=== PATIENT | female | born 1985 | race Caucasian/White ===

== ENCOUNTER 2020-08-11 17:57 | Emergency (ER) | payer OTHER, SELFPAY ==
--- OUTSIDE RECORDS SUMMARY | 2020-08-11 17:59 | XMS REPORT | Summary of Care ---
:1985 Author Organization [facility] Address [address] [place] [address] Care Team Providers Name Role Phone Marcela Kang MD Unavailable Unavailable Escobar, E Insurance Hmo Escobar, E Primary Care Provider Reason for Visit Reason Comments Refill Request Encounter Details Date Type Department Care Team Description 05/23/2020 Refill [facility] Endocrinology- Tanya [place] [address] [address] [place] [address] [phone] Allergies Active Allergy Reactions Severity Noted Date Comments Penicillins Unknown - See comments 07/21/2011 documented as of this encounter (statuses as of 05/23/2020) Medications Medication Sig Dispensed Refills Start End Date Status Date insulin Use 4 times daily 360 Syringe 3 Active syringe-needle with insulin 6 U-100 1 ml (INSULIN SYRINGE) 1 mL 29 gauge x 1/2" SyrgIndications: Type 1 diabetes mellitus with complications insulin Use 4 times daily 360 Syringe 3 Active syringe-needle 6 U-100 (BD INSULIN SYRINGE ULTRA-FINE) 0.3 mL 31 gauge x 15/64" SyrgIndications: Type 1 diabetes mellitus with complications BD INSULIN SYRINGE 0 A ctive HALF UNIT 0.3 mL 6 31 gauge x 15/64" Syrg insulin aspart Take according to 10 mL 2 Active U-100 (NOVOLOG sliding scale and 8 FLEXPEN U-100 carbohydrate INSULIN) 100 ratio up to 20 unit/mL units before each injectionIndicatio meal ns: Type 1 diabetes mellitus with complication phenytoin ER 300 Take 1 capsule by 30 capsule 6 Active mg ER capsule mouth at bedtime. 8 Blood-Glucose DX: E11.9 1 Each 0 Active Meter (FREESTYLE 8 LITE METER) Kit lancets (FREESTYLE Use as directed, 550 Each 1 Active LANCETS) 28 gauge six times daily, 8 Misc DX:E11.9 phenytoin Extended Take 100 mg by 0 Active 100 mg capsule mouth 2 (two) times daily. pregabalin Take 100 mg by 0 Acti ve (LYRICA) 100 mg mouth daily. capsule sertraline HCl Take by mouth 0 Active (SERTRALINE ORAL) daily. ALPRAZolam 1 mg Take 1 mg by 0 A ctive tablet mouth 3 (three) times daily. glucagon (GLUCAGON Inject 1 mg 1 mg 2 Active EMERGENCY KIT, intravenously as 9 HUMAN,) 1 mg needed injectionIndicatio (hypoglycemia). ns: Type 1 diabetes mellitus with hypoglycemia and without coma, Hypoglycemia due to insulin traMADol 50 mg Take 50 mg by 0 A ctive tablet mouth every 6 (six) hours as needed. flash glucose 1 Kit every 14 2 Kit 3 A ctive sensor (FREESTYLE (fourteen) days. 9 MAN 14 DAY SENSOR) KitIndications: Type 1 diabetes mellitus with hypoglycemia and without coma flash glucose 1 Each daily. 1 Each 0 Ac tive scanning reader 9 (FREESTYLE MAN 14 DAY READER) MiscIndications: Type 1 diabetes mellitus with hypoglycemia and without coma Insulin Ingalls, Use as directed 5 500 Each 1 Active Disposable, (BD times a day 0 ULTRAFINE III MINI E10.65 PEN) 31 gauge x 3/16" NdleIndications: Type 1 diabetes mellitus with hypoglycemia and without coma FREESTYLE LITE USE DIRECTED 600 Strip 1 Active STRIPS SIX TIMES DAILY 0 stripIndications: E10.9 Type 1 diabetes mellitus with hypoglycemia and without coma ATORVASTATIN 10 mg TAKE 1 TABLET BY 90 tablet 1 04/15/202 Active tabletIndications: MOUTH EVERYDAY AT 0 Other BEDTIME hyperlipidemia proMETHazine 25 mg Take 1 tablet by 12 tablet 0 Active tabletIndications: mouth every 8 0 Pyelonephritis of (eight) hours as left kidney needed for Nausea and Vomiting (N/V). LANTUS SOLOSTAR INJECT 12 UNITS 15 mL 0 Active U-100 INSULIN 100 IN MORNING AND 5 0 unit/mL (3 mL) UNITS AT NIGHT injectionIndicatio E10.65 ns: Type 1 diabetes mellitus with hypoglycemia and without coma Insulin Glargine INJECT 12 UNITS 18 mL 1 0 Discontinued (LANTUS SOLOSTAR IN MORNING AND 5 0 20 U-100 INSULIN) 100 UNITS AT NIGHT unit/mL (3 mL) E10.65 injectionIndicatio ns: Type 1 diabetes mellitus with hypoglycemia and without coma documented as of this encounter (statuses as of 05/23/2020) Active Problems Problem Noted Date Diabetic ketoacidosis without coma associated with typ e 1 diabetes 02/26/2019 mellitus Nausea and vomiting 02/26/2019 Metabolic disorder 05/18/2018 Alcoholic ketoacidosis 03/29/2018 DKA (diabetic ketoacidoses) 03/25/2018 Vomiting 01/30/2018 Dehydration 01/30/2018 Pain in joint, shoulder region 10/24/2016 Convulsions 10/23/2016 Seizures 10/22/2016 Diabetic ketoacidosis 06/02/2016 Surveillance of previously prescribed contraceptive me thod 01/14/2016 Breast pain 01/14/2016 Elevated BP 01/14/2016 Abnormal thyroid function test 11/08/2015 Elevated liver enzymes 11/08/2015 Hyperglycemia 10/02/2015 Other and unspecified ovarian cyst 01/03/2015 Dysmenorrhea 01/03/2015 Type 1 diabetes mellitus 07/21/2011 Overview: ICD10 Diagnosis 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 documented as of this encounter (statuses as of 05/23/2020) Resolved Problems Problem Noted Date Resolved Date DKA (diabetic ketoacidoses) 07/15/2016 05/27/2017 Insulin pump titration 11/08/2015 05/27/2017 Insulin pump status 11/08/2015 05/27/2017 DKA, type 1 10/05/2015 05/27/2017 Diabetic ketoacidosis without coma associated with type 1 05/27/2017 diabetes mellitus Leucocytosis 10/02/2015 01/14/2016 Macrocytic anemia 06/21/2015 01/14/2016 UTI (lower urinary tract infection) 06/04/2015 07/0 07/2017 Diabetes in 07/21/2011 01/14/2016 Essential hypertension, benign 07/21/2011 6 documented as of this encounter (statuses as of 05/23/2020) Immunizations Name Administration Dates Next Due Influenza Virus Vaccine 10/15/2011 Influenza Virus Vaccine Quad .5 mL IM 02/26/2019 6+ MO Pneumococcal Polysaccharide, PPSV23 10/15/2011 (PNEUMOVAX) Rho (d) Immune Globulin 10/12/2011 (Deferred: Immunizations Up to Date - duplicate order), 10/12/2011 TDAP 01/01/2015 Td 10/07/2017 documented as of this encounter Social History Tobacco Use Types Packs/Day Years Used Date Current Every Day Smoker Cigarettes 0.5 5 Smokeless Tobacco: Never Used Comments: advised to speak with re rx programs Alcohol Use Drinks/Week oz/Week Comments Yes twice a month Sex Assigned at Date Recorded Not on file Job Start Date Occupation Industry Not on file Not on file Not on file Travel History Travel Start Travel End No recent travel history available. documented as of this encounter Last Filed Vital Signs Not on filedocumented in this encounter Plan of Treatment Date Type Specialty Care Team Description 07/07/2020 Office Visit Endocrinology Diabetes & Zane Butts MD Metabolism [address] [place], [place] [address] Health Maintenance Due Date Last Done Comments HgA1C 07/14/2020 01/14/2020, 09/09/2019, 06/03/2019, Additional history exists Depression Screening 08/08/2020 08/08/2019 EYE EXAM 09/09/2020 08/21/2018, 07/05/2016 Postponed from (Previously completed) 9 (Parent Refused) FOOT EXAM 01/14/2021 01/14/2020, 01/14/2020, 03/04/2019, Additional history exists INFLUENZA VACCINE (#1) 2021 02/26/2019, 10/15/2011 Po stponed from 07/20/2020 (Refu sed) LDL-C 01/14/2021 01/14/2020, 12/13/2018, 06/05/2017 URINE MICROALBUMIN 01/14/2021 01/14/2020, 12/13/2018, 06/05/2017, Additional history exists CREATININE (SERUM) 04/01/2021 04/01/2020, 01/14/2020, 04/11/2019, Additional history exists PAP SMEAR 09/19/2021 09/19/2018, 01/01/2015, 12/05/2011 DTaP,Tdap,and Td Vaccines 10/07/2027 10/07/2017, 01/01/2015 (3 - Td) PNEUMOCOCCAL 0-64 YEARS Completed 10/15/2011 COMBINED SERIES documented as of this encounter Results Not on filedocumented in this encounter Visit Diagnoses Diagnosis Type 1 diabetes mellitus with hypoglycem ia and without coma Type I (juvenile type) diabetes mellitus with other specified manifestations, not stated as uncontrolled documented in this encounter Insurance Payer Benefit Plan / Subscriber ID Effective Phone Address T [facility] xxxxxxxxx 2018-Pres [address] Medic aid HEALTH CHOICE - HEALTH CHOICE ent [id number] 1 MANAGED MEDICAID [place], [place] [phone] documented as of this encounter
--- OUTSIDE RECORDS SUMMARY | 2020-08-11 17:59 | XMS REPORT | Continuity of Care Document ---
:1985 Author Organization [facility] t Address [address] [place] [address] Care Team Providers Name Role Phone Benjamín SHUKLA Attending Clinician Yas Dukes Attending Clinician Problems This patient has no known problems. Allergies, Adverse Reactions, Alerts This patient has no known allergies or adverse reactions. Medications This patient has no known medications. Procedures This patient has no known procedures. Encounters Start End Encounter Admission Attending Care Care Encounter Source Date/Time Date/Time Type Type Clinicians Facility Department ID 2020-07-29 2020-07-29 Refill KISHORE Butts [id number] 00:00:00 [facility]:00:[facility] [id number] [place] [id number] Professio [id number] formerly [facility] [address] Building 2020-07-20 2020-07-20 [facility] KISHORE Magana [id number] 10:18:42 23:59:00 Encounter [facility] [id number] Surgical [id number] Specialti [id number] [address] 2020-07-20 2020-07-20 Office KISHORE Magana [id number] 10:10:01 10:25:01 Visit [facility] [id number] Surgical [id number] Specialti [id number] [address] Results This patient has no known results.
--- OUTSIDE RECORDS SUMMARY | 2020-08-11 18:00 | XMS REPORT | Summary of Care ---
:1985 Author Organization [facility] - Health Address [address] [place] [address] Care Team Providers Name Role Phone Marcela Kang MD Unavailable Unavailable Escobar, E Insurance Hmo Escobar, E Primary Care Provider Encounter Details Date Type Department Care Team Description 07/05/2020 Orders Only [facility] Doctor Unassigned, No [address] [facility] [place] [address] [address] [place] [address] Allergies Active Allergy Reactions Severity Noted Date Comments Penicillins Unknown - See comments 07/21/2011 documented as of this encounter (statuses as of 07/05/2020) Medications Medication Sig Dispensed Refills Start Date End Date Status insulin Use 4 times daily 360 Syringe 3 06/12/2016 Active syringe-needle U-100 with insulin 1 ml (INSULIN SYRINGE) 1 mL 29 gauge x 1/2" SyrgIndications: Type 1 diabetes mellitus with complications insulin Use 4 times daily 360 Syringe 3 09/12/2016 Active syringe-needle U-100 (BD INSULIN SYRINGE ULTRA-FINE) 0.3 mL 31 gauge x 15/64" SyrgIndications: Type 1 diabetes mellitus with complications BD INSULIN SYRINGE 0 10/13/2016 Active HALF UNIT 0.3 mL 31 gauge x 15/64" Syrg insulin aspart U-100 Take according to 10 mL 2 05/27/2018 Active (NOVOLOG FLEXPEN sliding scale and U-100 INSULIN) 100 carbohydrate ratio unit/mL up to 20 units injectionIndications before each meal : Type 1 diabetes mellitus with complication phenytoin ER 300 mg Take 1 capsule by 30 capsule 6 06/14/2018 Active ER capsule mouth at bedtime. Blood-Glucose Meter DX: E11.9 1 Each 0 10/04/2018 Active (FREESTYLE LITE METER) Kit lancets (FREESTYLE Use as directed, 550 Each 1 10/28/2018 Active LANCETS) 28 gauge six times daily, [facility] DX:E11.9 phenytoin Extended Take 100 mg by 0 Active 100 mg capsule mouth 2 (two) times daily. pregabalin (LYRICA) Take 100 mg by 0 Active 100 mg capsule mouth daily. sertraline HCl Take by mouth 0 Active (SERTRALINE ORAL) daily. ALPRAZolam 1 mg Take 1 mg by mouth 0 Active tablet 3 (three) times daily. glucagon (GLUCAGON Inject 1 mg 1 mg 2 06/03/2019 Active EMERGENCY KIT, intravenously as HUMAN,) 1 mg needed injectionIndications (hypoglycemia). : Type 1 diabetes mellitus with hypoglycemia and without coma, Hypoglycemia due to insulin traMADol 50 mg Take 50 mg by mouth 0 Active tablet every 6 (six) hours as needed. flash glucose sensor 1 Kit every 14 2 Kit 3 09/09/2019 Active (FREESTYLE MAN 14 (fourteen) days. DAY SENSOR) KitIndications: Type 1 diabetes mellitus with hypoglycemia and without coma flash glucose 1 Each daily. 1 Each 0 09/09/2019 A ctive scanning reader (FREESTYLE MAN 14 DAY READER) MiscIndications: Type 1 diabetes mellitus with hypoglycemia and without coma Insulin Emerson, Use as directed 5 500 Each 1 01/14/2020 Active Disposable, (BD times a day E10.65 ULTRAFINE III MINI PEN) 31 gauge x 3/16" NdleIndications: Type 1 diabetes mellitus with hypoglycemia and without coma FREESTYLE LITE USE DIRECTED SIX 600 Strip 1 01/14/2020 Active STRIPS TIMES DAILY E10.9 stripIndications: Type 1 diabetes mellitus with hypoglycemia and without coma ATORVASTATIN 10 mg TAKE 1 TABLET BY 90 tablet 1 03/03/2020 Active tabletIndications: MOUTH EVERYDAY AT Other hyperlipidemia BEDTIME proMETHazine 25 mg Take 1 tablet by 12 tablet 0 04/01/2020 Active tabletIndications: mouth every 8 Pyelonephritis of (eight) hours as left kidney needed for Nausea and Vomiting (N/V). LANTUS SOLOSTAR INJECT 12 UNITS IN 15 mL 0 05/23/2020 Active U-100 INSULIN 100 MORNING AND 5 UNITS unit/mL (3 mL) AT NIGHT E10.65 injectionIndications : Type 1 diabetes mellitus with hypoglycemia and without coma dicyclomine (BENTYL) Take 1 capsule by 24 capsule 0 06/17/2020 Active 10 mg mouth 4 (four) capsuleIndications: times daily as Delayed gastric needed for emptying Abdominal pain. 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 documented as of this encounter Last Filed Vital Signs Not on filedocumented in this encounter Plan of Treatment Date Type Specialty Care Team Description 07/07/2020 Office Visit Endocrinology Diabetes & Zane Butts MD Metabolism [address] [place], [place] [id number] Health Maintenance Due Date Last Done Comments HgA1C 07/14/2020 01/14/2020, 09/09/2019, 06/03/2019, Additional history exists INFLUENZA VACCINE (#1) 2020 02/26/2019, 10/15/2011 Depression Screening 08/08/2020 08/08/2019 EYE EXAM 09/09/2020 08/21/2018, 07/05/2016 Postponed from (Previously completed) 9 (Parent Refused) FOOT EXAM 01/14/2021 01/14/2020, 01/14/2020, 03/04/2019, Additional history exists LDL-C 01/14/2021 01/14/2020, 12/13/2018, 06/05/2017 URINE MICROALBUMIN 01/14/2021 01/14/2020, 12/13/2018, 06/05/2017, Additional history exists CREATININE (SERUM) 06/17/2021 06/17/2020, 04/01/2020, 01/14/2020, Additional history exists PAP SMEAR 09/19/2021 09/19/2018, 01/01/2015, 12/05/2011 DTaP,Tdap,and Td Vaccines 10/07/2027 10/07/2017, 01/01/2015 (3 - Td) PNEUMOCOCCAL 0-64 YEARS Completed 10/15/2011 COMBINED SERIES documented as of this encounter Procedures Procedure Name Priority Date/Time Associated Diagnosis Comme nts CONSENT/REFUSAL FOR Routine 07/05/2020 4:16 PM CDT DIAGNOSIS AND TREATMENT documented in this encounter Results Not on filedocumented in this encounter Insurance Payer Benefit Plan / Subscriber ID Effective Phone Address T e Group [facility] [id number] 2018-Pres [address] Medic aid HEALTH CHOICE - HEALTH CHOICE ent [id number] 1 MANAGED MEDICAID [place], [place] MED[place]ID [phone] documented as of this encounter
--- OUTSIDE RECORDS SUMMARY | 2020-08-11 18:00 | XMS REPORT | Summary of Care ---
:1985 Author Organization [facility] - Health Address [address] [place] [address] Care Team Providers Name Role Phone Marcela Kang MD Unavailable Unavailable Escobar, E Insurance Hmo Escobar, E Primary Care Provider Encounter Details Date Type Department Care Team Description 06/17/2020 Orders Only [facility] Doctor Unassigned, No 301 [facility] [place] [address] [address] [place] [address] Allergies Active Allergy Reactions Severity Noted Date Comments Penicillins Unknown - See comments 07/21/2011 documented as of this encounter (statuses as of 06/17/2020) Medications Medication Sig Dispensed Refills Start Date [...] Active LANCETS) 28 gauge six times daily, [facility] DX:E11.9 phenytoin Extended Take 100 mg by [...] mellitus with hypoglycemia and without coma Insulin Rudolph, Use as directed 5 500 Each 1 [...] as of this encounter (statuses as of 06/17/2020) Active Problems Problem Noted Date Diabetic ketoacidosis [...] diabetes mellitus 07/21/2011 Overview: ICD10 Diagnosis 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 documented as of this encounter (statuses as of 06/17/2020) Resolved Problems Problem Noted Date Resolved Date [...] as of this encounter (statuses as of 06/17/2020) Immunizations Name Administration Dates Next Due Influenza [...] Diabetes & Zane Butts MD Metabolism [address] [place] [address] [phone] Health Maintenance Due Date Last Done Comments [...] Associated Diagnosis Comme nts CONSENT/REFUSAL FOR Routine 06/17/2020 2:40 PM CDT DIAGNOSIS AND TREATMENT documented in this encounter Results Not on filedocumented in this encounter Insurance Payer Benefit Plan / Subscriber ID Effective Phone Address T [facility] xxxxxxxxx 2018-Pres [address] Medic aid HEALTH CHOICE - HEALTH CHOICE ent [id number] 1 MANAGED MEDICAID [place], [place] [phone] documented as of this encounter
--- OUTSIDE RECORDS SUMMARY | 2020-08-11 18:00 | XMS REPORT | Summary of Care ---
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 [address] [place] [address] MRI/CAT Scan (STAT) Status Reason Specialty Diagnoses / Referred By Referred To Procedures Contact Contact New Request Diagnostic Diagnoses LLQ pain Drever, Babs Radiology Procedures CT ABDOMEN PELVIS W CONTRAST G, 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 [address] [place] [address] Radiology Services (STAT) Status Reason Specialty Diagnoses / Referred By Referred To Procedures Contact Contact New Request Diagnostic Diagnoses LLQ pain Drever, Babs Radiology Procedures XR KUB G, 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 [address] [place] [address] Radiology Services (STAT) Status Reason Specialty Diagnoses / Referred By Referred To Procedures Contact Contact New Request Diagnostic Diagnoses LLQ pain Drever, Babs Radiology Procedures US OVARY TORSION US TRANSVAGINAL G, 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 [address] [place] [address] Reason for Visit Reason Comments Flank Pain left Auth/Cert Status Reason Specialty Diagnoses / Referred By Referred To Procedures Contact Contact Emergency Medicine Ad[facility] Em ergency Dept [address] [place] [address] Fax: Encounter Details Date Type Department Care Team Description 06/17/2020 Emergency ADC-Emergency Babs Keller G, Flank london n (Primary Dx); Department 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 erythromycin 400 Take 0.75 mL by 21 mL 0 06/17/2020 Active mg/5 mL mouth 4 (four) 0 suspensionIndication times daily with s: Delayed gastric meals or snack for emptying 7 days. 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 COVID-19 Exposure Response Date Recorded In the last month, have you been in contact with No / Unsure 06/17/2020 2:58 PM CDT someone who was confirmed or suspected to have Coronavirus / COVID-19? documented as of this encounter Last Filed Vital Signs Vital Sign Reading Time Taken Comments Blood Pressure 166/96 06/17/2020 10:00 PM CDT Pulse 98 06/17/2020 10:00 PM CDT Temperature 37.1 C (98.7 F) 06/17/2020 2:50 PM CDT Respiratory Rate 19 06/17/2020 10:00 PM CDT Oxygen Saturation 98% 06/17/2020 10:00 PM CDT Inhaled Oxygen Concentration - - Weight 45.4 kg (100 lb) 06/17/2020 2:50 PM CDT Height 160 cm (5' 3") 06/17/2020 2:50 PM CDT Body Mass Index 17.71 06/17/2020 2:50 PM CDT documented in this encounter Discharge Instructions Babs Leach NP - 06/17/2020Diagnosis: Delayed gastric emptying Prescriptions for Bentyl and Erythromycin sent to your [facility] pharmacy Referral sent to Gastroenterology for follow up AttachmentsThe following attachments cannot be sent through Care Everywhere. Digestive System,Anatomy of the (Austrian)documented in this encounter Plan of Treatment Date Type Specialty Care Team Description 07/07/2020 Office Visit Endocrinology Diabetes & Zane Butts MD Metabolism [address] [place] [address] [phone] Name Type Priority Associated Diagnoses Date/Ti me XR KUB IMAGING STAT LLQ pain 06/17/2020 5:[address] ABDOMEN PELVIS W IMAGING STAT LLQ pain 06/17/20 8:49 PM CDT CONTRAST Health Maintenance Due Date Last Done Comments [...] Name Priority Date/Time Associated Diagnosis Comme nts CT ABDOMEN PELVIS W STAT 06/17/2020 8:49 PM CDT LLQ pain CONTRAST Procedure Note - [facility], Radia nt Results Inft User - 06/17/2020 10:02 PM CDT EXAM: CT ABDOMEN AND PELVIS WITH CONTRAST HISTORY: Bowel obstruction h igh-grade suspected. COMPARISON: 04/01/2020.. DOSE: Total exam DLP [237] m Gy-cm TECHNIQUE AND FINDINGS: Cont iguous axial imaging from the level of the lung bases through the proximal f emurs Was performed after the uncomplicated administration of 120 cc of intravenous Omnipaque contrast. Coronal and sagittal reconstructions wer e obtained. Auto mA and/or iterative reconstruction were used to reduce radiation dose. FINDINGS: LOWER THORAX: The lungs base s are clear. No cardiomegaly. LIVER: Hepatomegaly (17.3 cm craniocaudally). No focal hepatic lesions. Normal contour. GALLBLADDER AND BILIARY TREE : No biliary ductal dilation. No gallbladder wall thickening. SPLEEN: No splenomegaly. PANCREAS: No ductal dilation or masses. ADRENAL GLANDS: No adrenal n odules. KIDNEYS: No hydronephrosis, stones, or masses. Unremarkable cortical enhancement. PERITONEUM AND RETROPERITONE UM: No free air or fluid. LYMPH NODES: No lymphadenopa thy. GI TRACT: Gastric lumen is m oderately to markedly distended. The gastric antrum/pyloric demonstrates circumferential mucosal thickening more pronounced on this examinati on compared to prior. PELVIS/BLADDER: The urinary bladder is moderately distended and the pineda are not significantly thicke nadeem with regard to degree of distention. The uterus is grossly unrema rkable with mild heterogeneity of the lower uterine segment, likely perf usional in nature. The bilateral ovaries are unremarkable in size and con tain prominent hypoattenuating follicles. No adnexal masses. VESSELS: Unremarkable. BONES AND SOFT TISSUES: No s uspicious lytic or sclerotic bony lesions. IMPRESSION 1. No CT evidence of small bowel obstruction. 2. Moderate to marked diste ntion of the gastric lumen with circumferential mural thickening of the dist al stomach/proximal duodenum raise concern for gastritis with resultant del ayed gastric emptying/partial gastric outlet obstruction. 3. No CT evidence of UTI, p yelonephritis, or perinephric fluid collections. Preliminary Report Dictated by Resident: Wero Glover Ikwuagwu POCT GLUCOSE (AUTOMATED) Routine 06/17/2020 7:54 PM CDT Results for this procedure are i n the results section . CBC WITH DIFF STAT 06/17/2020 7:19 PM CDT LLQ pain Res ults for this procedure are i n the results section . BASIC METABOLIC PANEL STAT 06/17/2020 7:19 PM CDT LLQ pain Results for this (NA, K, CL, CO2, procedure a re in the GLUCOSE, BUN, results sectio n. CREATININE, CA) ADC / LCC - DRUG SCREEN STAT 06/17/2020 6:50 PM CDT LLQ pa in Results for this TRIAGE procedure are i n the results section . POCT GLUCOSE (AUTOMATED) Routine 06/17/2020 6:01 PM CDT Results for this procedure are i n the results section . XR KUB STAT 06/17/2020 5:40 PM CDT LLQ pain Procedure Note - [facility], Radia nt Results Inft User - 06/17/2020 6:37 PM CDT EXAM: XR KUB HISTORY: 34 years-old Female presenting with LLQ pain COMPARISON: 10/02/2015 radio graph, CT abdomen pelvis 04/01/2020 FINDINGS: Gaseous distention of multip le small bowels is noted. Fecal matter is seen in the ascending colon. Gase ous distention of the transverse and the descending colon is noted wi th with abrupt cut off in the rectum. No abnormal calcifications o r radiopaque stones are identified. No acute bony abnormalities are noted. IMPRESSION Bowel gas pattern is concern ing for distal bowel obstruction. Consider CT abdomen and pelvis with IV c ontrast for further evaluation. Preliminary Report Dictated by Resident: Alex Kang URINALYSIS STAT 06/17/2020 4:08 PM Flank pain Results for this CDT procedure are i n the results section . US OVARY TORSION STAT 06/17/2020 3:58 PM LLQ pain Resu lts for this CDT procedure are i n the results section . POCT TEST DONALD 06/17/2020 3:51 PM Flank pain R esults for this CDT procedure are i n the results section . POCT GLUCOSE Routine 06/17/2020 2:52 PM Results for this (AUTOMATED) CDT procedure are i n the results section . NOTICE OF PRIVACY Routine 06/17/2020 2:41 PM PRACTICES CDT NOTICE OF PRIVACY Routine 06/17/2020 2:40 PM PRACTICES CDT documented in this encounter Results POCT GLUCOSE (AUTOMATED) (06/17/2020 7:54 PM CDT) Pathologist Sig nature POCT GLU 194 (H) 70 - 110 mg/dL [facility] Specimen Blood Performing Organization Address City/State/Zipcode Phone Number [facility] CLIA: [id number], [address] [place], [place] [address] BASIC METABOLIC PANEL (NA, K, CL, CO2, GLUCOSE, BUN, CREATININE, CA) (06/17/2020 7:19 PM CDT) NA 140 135 - 145 [facility] mmol/L [facility] K 3.9 3.5 - 5.0 [facility] mmol/L [facility] CL 102 98 - 108 mmol/L [facility] CO2 TOTAL 26 23 - 31 mmol/L [facility] AGAP 12 2 - 16 [facility] BUN 8 7 - 23 mg/dL [facility] GLUCOSE 168 (H) 70 - 110 mg/dL [facility] CREATININE 0.46 (L) 0.50 - 1.04 [facility] mg/dL [facility] CALCIUM 8.6 8.6 - 10.6 [facility] mg/dL [facility] eGFR Calculation 155.5 mL/min/1.73m2 [facility] (Non[facility] LABORATORY [place]) eGFR Calculation 188.5 mL/min/1.73m2 [facility] () [facility] Specimen Blood - VENOUS Narrative Performed At Association of Glomerular Filtration Rate (GFR) [facility] and Staging of Kidney Disease* + + +- + | GFR (mL/min/1.73 m2) | With Kidney Damage | Without Kidney Damage + + +- + | >90 | Stage one | Normal + + +- + | 60-89 | Stage two | Decreased GFR + + +- + | 30-59 | Stage three | Stage three + + +- + | 15-29 | Stage four | Stage four + + +- + | <15 (or dialysis) | Stage five | Stage five + + +- + *Each stage assumes the associated GFR level has been in effect for at least three months. Stages 1 to 5, with or without kidney disease, indicate chronic kidney disease. Notes: Determination of stages one and two (with eGFR >59mL/min/1.73 m2) requires estimation of kidney damage for at least three months as defined by structural or functional abnormalities of the kidney, manifested by either: Pathological abnormalities or Markers of kidney damage (including abnormalities in the composition of the blood or urine or abnormalities in imaging tests). Performing Organization Address City/State/Zipcode Phone Number [facility] CLIA: [id number], [address] [place], [place] [address] CBC WITH DIFF (06/17/2020 7:19 PM CDT) [facility] WBC 6.55 4.30 - 11.10 [facility] 10*3/L [facility] RBC 3.90 (L) 3.93 - 5.25 [facility] 10*6/L [facility] HGB 14.0 11.6 - 15.0 [facility] g/dL [facility] HCT 39.7 35.7 - 45.2 % [facility] MCV 101.8 (H) 80.6 - 95.5 fL [facility] MCH 35.9 (H) 25.9 - 32.8 pg [facility] MCHC 35.3 (H) 31.6 - 35.1 [facility] g/dL [facility] RDW-SD 45.3 39.0 - 49.9 fL [facility] RDW-CV 12.1 12.0 - 15.5 % [facility] PLT 223 166 - 358 [facility] 10*3/L [facility] MPV 9.4 (L) 9.5 - 12.9 fL [facility] NRBC/100 WBC 0.0 0.0 - 10.0 /100 [facility] WBCs [facility] NRBC x10^3 <0.01 10*3/L [facility] GRAN MAT (NEUT) % 65.3 % [facility] IMM GRAN % 0.50 % [facility] LYMPH % 25.8 % [facility] MONO % 7.5 % [facility] EOS % 0.3 % [facility] BASO % 0.6 % [facility] GRAN MAT x10^3(ANC) 4.28 1.88 - 7.09 [facility] 10*3/uL [facility] IMM GRAN x10^3 0.03 0.00 - 0.06 [facility] 10*3/uL [facility] LYMPH x10^3 1.69 1.32 - 3.29 [facility] 10*3/uL [facility] MONO x10^3 0.49 0.33 - 0.92 [facility] 10*3/uL [facility] EOS x10^3 <0.03 (L) 0.03 - 0.39 [facility] 10*3/uL [facility] BASO x10^3 0.04 0.01 - 0.07 [facility] 10*3/uL [facility] Specimen Blood - VENOUS Performing Organization Address City/[facility] Phone Number [facility] CLIA: [id number], [address] [place] [address] ADC / [facility]CC - DRUG SCREEN TRIAGE (06/17/2020 6:50 PM CDT) BENZO U Negative Negative [facility] JEANINE U Presumptive Negative [facility] Positive (A) [facility] AMPHET Negative Negative [facility] THC Negative Negative [facility] METHADONE Negative Negative [facility] Meth U Negative Negative [facility] OPIATES Negative Negative [facility] Cocaine Metabolite Negative Negative [facility] PROPOXY Negative Negative [facility] Tric U Negative Negative [facility] PCP Negative Negative [facility] OXYCOD Negative Negative [facility] Specimen Urine - URINE, CLEAN CATCH Narrative Performed At Urine Drug Cutoff Ranges [facility] Benzodiazepines: 150 ng/mL Barbiturates: 200 ng/mL Amphetamine: 500 ng/mL Cannabinoids: 50 ng/mL Methadone: 200 ng/mL Methamphetamine: 500 ng/mL Opiates: 100 ng/mL or 2000 ng/mL Cocaine: 150 ng/mL Propoxyphene: 300 ng/mL Tricyclics: 300 ng/mL Oxycodone: 100 ng/mL PCP: 25 ng/mL The results are to be used only for medical (i.e., treatment) purposes. Unconfirmed screening results must not be used for non-medical purposes (e.g., employment testing, legal testing). Performing Organization Address [facility] Phone Number [facility] CLIA: [id number], [address] [place] [address] POCT GLUCOSE (AUTOMATED) (06/17/2020 6:01 PM CDT) Pathologist Sig nature POCT GLU 33 (LL) 70 - 110 mg/dL [facility] Specimen Blood Performing Organization Address [facility] Phone Number [facility] CLIA: [id number], [address] [place], [place] [address] URINALYSIS (06/17/2020 4:08 PM CDT) Pathologist Sig nature APPEARANCE Clear Clear [facility] COLOR Straw (A) Yellow [facility] PH 7.0 4.8 - 8.0 [facility] SP GRAVITY 1.003 1.003 - 1.030 [facility] GLU U QUAL Normal Normal [facility] BLOOD Negative Negative [facility] KETONES Negative Negative [facility] PROTEIN Negative Negative [facility] UROBILIN Normal Normal [facility] BILIRUBIN Negative Negative [facility] NITRITE Negative Negative [facility] LEUK EDMUNDO Negative Negative [facility] RBC/HPF <1 0 - 3 HPF [facility] WBC/HPF <1 0 - 5 HPF [facility] BACTERIA Negative Negative [facility] SQ EPITH 1 HPF [facility] Specimen Urine - URINE, CLEAN CATCH Performing Organization Address City/State/Zipcode Phone Number [facility] CLIA: [id number], [address] [place], [place] [address] US OVARY TORSION (06/17/2020 3:58 PM CDT) Specimen Narrative Performed At HISTORY: Pelvic pain. Rule out torsion. PACS/VR/DOSE TECHNIQUE: Both transabdominal and transvaginal pelvic ultrasound studies were completed by the technologist. FINDINGS: Comparison is made with 04/01/2020 ultrasound pelvis as well as CT scan of abdomen and pelvis. Uterus is of normal size and shape, measures approxim ately 5.5 x 2.7 x 4.8 cm in size with homogeneous echo texture of the myomet rium. Endometrial echo complex is 4.6 mm. No free fluid in the cul-de-sac. Right ovary is 2.7 x 1.4 x 2.6 cm (10.55 ml) and left ovary is 3.2 x 1.7 x 2.1 cm (6.17 ml). Multiple follicles are present in th e left ovary, largest oval-shaped follicle is approximately 14 x 9 mm in siz e. Multiple follicles also noted in the right ovary, largest i s 10 x 7 mm. No sign ovary and torsion detected on either side. CONCLUSIONS: Essentially normal study. S pecifically, no ultrasonographic evidence of ovarian torsion detected. Procedure Note [facility], Radiant Results Inft User - 2019 4:06 PM CDT HISTORY: Pelvic pain. Rule out torsion. TECHNIQUE: Both transabdominal and trans vaginal pelvic ultrasound studies were completed by the technologist. FINDINGS: Comparison is made with 020 ultrasound pelvis as well as CT scan of abdomen and pelvis. Uterus is of normal size and shape, maribel sures approximately 5.5 x 2.7 x 4.8 cm in size with homogeneous echo texture of the myometrium. Endometrial echo complex is 4.6 mm. No free fluid in the cul-de-sac. Right ovary is 2.7 x 1.4 x 2.6 cm (10.55 ml) and left ovary is 3.2 x 1.7 x 2.1 cm (6.17 ml). Multiple follicles are present in the left ovary, largest oval-shaped follicle is approximately 14 x 9 mm in size. Multiple follicles also noted in the right ovary, largest i s 10 x 7 mm. No sign ovary and torsion detected on either side. CONCLUSIONS: Essentially normal study. S pecifically, no ultrasonographic evidence of ovarian torsion detected. Performing Organization Address [facility] Cent[facility]ode Phone Number PACS/VR/DOSE POCT TEST (06/17/2020 3:51 PM CDT) Pathologist Sig nature POCT PREG NEGATIVE On board controls acceptable Present with C Line POCT PREG LOT # [id number] POCT PREG TEST DATE 08/18/21 Specimen Urine - URINE, CLEAN CATCH POCT GLUCOSE (AUTOMATED) (06/17/2020 2:52 PM CDT) Pathologist Sig nature POCT GLU 153 (H) 70 - 110 mg/dL [facility] Specimen Blood Performing Organization Address [facility]/Zipcode Phone Number [facility] CLIA: [id number], [address] [place], [place] [address] documented in this encounter Visit Diagnoses Diagnosis Flank pain - Primary Abdominal pain, unspecified site LLQ pain Abdominal pain, left lower quadrant Delayed gastric emptying Dyspepsia and other specified disorders of function of stomach documented in this encounter Administered Medications Medication Order MAR Action Action Date Dose Rate Site iohexol (OMNIPAQUE 350 BULK-150 Given 06/17/2020 8:48 PM CDT 12 0 mL mL) injection 120 mL 120 mL, Intravenous, ONCE, 1 dose, Agnieszka 06/17/20 at 2100, Routine documented in this encounter Insurance Payer Benefit Plan / Subscriber ID Effective Phone Address T [facility] xxxxxxxxx 2018-Pres [address] Medic [employer] HEALTH CHOICE - HEALTH CHOICE ent [id number] MANAGED MEDICAID [place], [place] [phone] documented as of this encounter
--- OUTSIDE RECORDS SUMMARY | 2020-08-11 18:00 | XMS REPORT | Summary of Care ---
:1985 Author Organization [facility] - [facility] Address [address] [place] [id number] Care Team Providers Name Role Phone Marcela Kang MD Unavailable Unavailable Escobar, E Insurance [employer] Escobar E Primary Care Provider Reason for Referral (Routine) Status Reason Specialty Diagnoses / Referred By Referred To Procedures Contact Contact New Request ORT-ORTHOPAEDIC Diagnoses Other closed fracture of right patella, initial encounter Gerhard Kennedy, SURGERY Procedures Discharge Follow-Up: Specialty Service ORT-ORTHOPAEDIC SURGERY; 3-5 Days OB NURSE [address] [place], [place] [address] Radiology Services (STAT) Status Reason Specialty Diagnoses / Referred By Referred To Procedures Contact Contact New Request Diagnostic Diagnoses Acute pain of right knee Gerhard Kennedy, Radiology Procedures XR KNEE 3 VW RIGHT OB NURSE [address] [place] [address] Reason for Visit Reason Comments Fall Knee Pain right Auth/Cert Status Reason Specialty Diagnoses / Referred By Referred To Procedures Contact Contact Emergency [facility] [address] [place] [address] Fax: Encounter Details Date Type Department Care Team Description 07/05/2020 Emergency [facility]-Emergency Brent, Cynise, Other close d fracture of right patella, initial encounter (Primary Dx); Department OB NURSE Acute pain of right knee [address] [address] [address] [id number] [place] [address] [place] [address] Allergies Active Allergy Reactions Severity Noted Date Comments Penicillins Unknown - See comments 07/21/2011 documented as of this encounter (statuses as of 07/05/2020) Medications Medication Sig Dispensed Refills Start End Status Date Date insulin Use 4 times 360 Syringe 3 06/12/20 Active syringe-needle daily with 16 U-100 1 ml (INSULIN insulin SYRINGE) 1 mL 29 gauge x 1/2" SyrgIndications: Type 1 diabetes mellitus with complications insulin Use 4 times 360 Syringe 3 09/12/20 Active syringe-needle daily 16 U-100 (BD INSULIN SYRINGE ULTRA-FINE) 0.3 mL 31 gauge x 15/64" SyrgIndications: Type 1 diabetes mellitus with complications BD INSULIN SYRINGE 0 10/13/20 A ctive HALF UNIT 0.3 mL 31 16 gauge x 15/64" Syrg insulin aspart Take according 10 mL 2 05/27/20 Active U-100 (NOVOLOG to sliding scale 18 FLEXPEN U-100 and carbohydrate INSULIN) 100 ratio up to 20 unit/mL units before injectionIndication each meal s: Type 1 diabetes mellitus with complication phenytoin ER 300 mg Take 1 capsule 30 capsule 6 06/14/20 Active ER capsule by mouth at 18 bedtime. Blood-Glucose Meter DX: E11.9 1 Each 0 10/04/20 Active (FREESTYLE LITE 18 METER) Kit lancets (FREESTYLE Use as directed, 550 Each 1 10/28/20 Active LANCETS) 28 gauge six times daily, 18 Misc DX:E11.9 phenytoin Extended Take 100 mg [...] (GLUCAGON Inject 1 mg 1 mg 2 06/03/20 Active EMERGENCY KIT, intravenously as 19 HUMAN,) 1 mg needed injectionIndication (hypoglycemia). s: Type 1 diabetes mellitus with hypoglycemia and without coma, Hypoglycemia due to insulin flash glucose 1 Kit every 14 2 Kit 3 09/09/20 A ctive sensor (FREESTYLE (fourteen) days. 19 MAN 14 DAY SENSOR) KitIndications: Type 1 diabetes mellitus with hypoglycemia and without coma flash glucose 1 Each daily. 1 Each 0 09/09/20 Ac tive scanning reader 19 (FREESTYLE MAN 14 DAY READER) MiscIndications: Type 1 diabetes mellitus with hypoglycemia and without coma Insulin [place], Use as directed 500 Each 1 01/14/20 Active Disposable, (BD 5 times a day 20 ULTRAFINE III MINI E10.65 PEN) 31 gauge x 3/16" NdleIndications: Type 1 diabetes mellitus with hypoglycemia and without coma FREESTYLE LITE USE DIRECTED 600 Strip 1 01/14/20 Active STRIPS SIX TIMES DAILY 20 stripIndications: E10.9 Type 1 diabetes mellitus with hypoglycemia and without coma ATORVASTATIN 10 mg TAKE 1 TABLET BY 90 tablet 1 03/03/20 Active tabletIndications: MOUTH EVERYDAY 20 Other AT BEDTIME hyperlipidemia proMETHazine 25 mg Take 1 tablet by 12 tablet 0 04/01/20 Active tabletIndications: mouth every 8 20 Pyelonephritis of (eight) hours as left kidney needed for Nausea and Vomiting (N/V). LANTUS SOLOSTAR INJECT 12 UNITS 15 mL 0 05/23/20 Active U-100 INSULIN 100 IN MORNING AND 5 20 unit/mL (3 mL) UNITS AT NIGHT injectionIndication E10.65 s: Type 1 diabetes mellitus with hypoglycemia and without coma dicyclomine Take 1 capsule 24 capsule 0 06/17/20 Ac tive (BENTYL) 10 mg by mouth 4 20 capsuleIndications: (four) times Delayed gastric daily as needed emptying for Abdominal pain. acetaminophen-codei Take 1 tablet by 15 tablet 0 07/05/20 08/ /2 Active ne 300-30 mg mouth every 8 20 020 tabletIndications: (eight) hours as acute pain needed for Pain (scale 7-10) for up to 7 days. Indications: acute pain ibuprofen 800 mg Take 1 tablet by 30 tablet 0 07/05/20 Active tabletIndications: mouth every 6 20 Other closed (six) hours as fracture of right needed for Pain patella, initial (scale 1-3) or encounter Pain (scale 4-6). cyclobenzaprine 10 Take 1 tablet by 15 tablet 0 07/05/20 Active mg mouth 3 (three) 20 tabletIndications: times daily as Other closed needed for fracture of right Muscle Spasms. patella, initial encounter traMADol 50 mg Take 50 mg by 0 D iscontinued tablet mouth every 6 020 (Thera py (six) hours as compl eted) needed. 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 documented as of this encounter (statuses as of 07/05/2020) Resolved Problems Problem Noted Date Resolved Date DKA (diabetic ketoacidoses) 07/15/2016 05/27/2017 Insulin pump titration 11/08/2015 05/27/2017 Insulin pump status 11/08/2015 05/27/2017 DKA, type 1 10/05/2015 05/27/2017 Diabetic ketoacidosis without coma associated with type 1 05/27/2017 diabetes mellitus Leucocytosis 10/02/2015 01/14/2016 Macrocytic anemia 06/21/2015 01/14/2016 UTI (lower urinary tract infection) 06/04/2015 07/07/2017 Diabetes in 07/21/2011 01/14/2016 Essential hypertension, benign [...] been in contact with No / Unsure 07/05/2020 4:32 PM CDT someone who was confirmed or suspected to have Coronavirus / COVID-19? documented as of this encounter Last Filed Vital Signs Vital Sign Reading Time Taken Comments Blood Pressure 168/105 07/05/2020 5:59 PM CDT Pulse 111 07/05/2020 5:59 PM CDT Temperature 37.5 C (99.5 F) 07/05/2020 4:33 PM CDT Respiratory Rate 16 07/05/2020 5:59 PM CDT Oxygen Saturation 96% 07/05/2020 5:59 PM CDT Inhaled Oxygen Concentration - - Weight 45.4 kg (100 lb) 07/05/2020 4:33 PM CDT Height 152.4 cm (5') 07/05/2020 4:33 PM CDT Body Mass Index 19.53 07/05/2020 4:33 PM CDT documented in this encounter Discharge Instructions InstructionsGerhard Kennedy FNP - 07/05/2020Flexeril may make you drowsy. Do not operate any heavy machinery including driving while you are on this medication. AttachmentsThe following attachments cannot be sent through Care Everywhere. Fracture, Knee (Cuban)Splint Care, Discharge Instructions (Cuban)documented in this encounter ED Notes Deandra Carias RN - 07/05/2020 4:32 PM CDTPatient states: "I was carrying a 5 gallon bucket yesterday and I slipped on a rug that was outside"Reports pain in her right knee, above and below the knee. Noted swelling and redness to right knee. documented in this encounter Miscellaneous Notes ED Nurse Note - Deandra Carias RN - 07/05/2020 6:19 PM CDTPt given printed and verbal discharge instructions regarding closed fracture of right patella, encour aged hydration, 3 Prescriptions provided, ibuprofen, Tylenol # 3, and flexeril. Discussed ibuprofen and to take with food to avoid GI distress. Discussed Tylenol # 3 side affects and to avoid driving/operating machinery/or engaging in activities requiring alertness while taking. Pt verbalized understanding of instructions, pt awake alert oriented, resp reg unlabored, skin w/d, color appropriate for race, pt encouraged to follow up with orthopedic. Advised to seek medical attention for new/prolonged/worsening of symptoms, No adverse reaction to meds given in ER noted upon discharge Awake, alert oriented, resp reg unlabored, skin w/d, pt leaving via wheelchair with [facility] staff. D Nurse Note - eDandra Carias RN - 07/05/2020 6:18 PM CDTAce wrap and knee immobilizer applied to right knee documented in this encounter Plan of Treatment Date Type Specialty Care Team Description 07/07/2020 Office Visit Endocrinology Diabetes & Zane Butts MD Metabolism [address] [place], [place] [id number] Name Type Priority Associated Diagnoses Date/Ti me XR KNEE 3 VW RIGHT IMAGING STAT Acute pain of right kn ee 07/05/2020 4:58 PM CDT Splint Application PROCEDURES Routine 0 5:33 PM CDT Health Maintenance Due Date Last Done Comments HgA1C 07/14/2020 01/14/2020, 09/09/2019, 06/03/2019, Additional history exists INFLUENZA VACCINE (#1) 2020 02/26/2019, 10/15/2011 Depression Screening 08/08/2020 08/08/2019 EYE EXAM 09/09/2020 08/21/2018, 07/05/2016 Postponed from (Previously completed) 10/03/201 9 (Parent Refused) FOOT EXAM 01/14/2021 01/14/2020, [...] Name Priority Date/Time Associated Diagnosis Comme nts ED SPLINT APPLICATION Routine 07/05/2020 5:33 PM CDT XR KNEE 3 VW RIGHT STAT 07/05/2020 4:58 PM Acute pain of r ight CDT knee Procedure Note - [facility], Radia nt Results Inft User - 07/05/2020 5:11 PM CDT EXAM: XR KNEE 3 VW RIGHT HISTORY: 34 years-old Female presenting with pain s/p fall COMPARISON: None FINDINGS: Radiographs of the right kne e demonstrate nondisplaced multifragment patellar fracture. A large v olume suprapatellar knee effusion is noted. IMPRESSION Nondisplaced multifragment ( stellate) patellar fracture Preliminary Report Dictated by Resident: Alex Kang NOTICE OF PRIVACY PRACTICES Routine 07/05/2020 4:16 PM CDT documented in this encounter Results Not on filedocumented in this encounter Visit Diagnoses Diagnosis Other closed fracture of right patella, initial encounter - Primary Acute pain of right knee documented in this encounter Administered Medications Medication Order MAR Action Action Date Dose Rate Site acetaminophen-codeine (TYLENOL Given 07/05/2020 5:46 PM CDT 1 t ablet #3) 300-30 mg tablet 1 tablet 1 tablet, Oral, ONCE, 1 dose, 07/05/20 at 1845, DONALD cyclobenzaprine (FLEXERIL) tablet 10 mg Given 07/05/2020 5:46 PM CDT 10 mg 10 mg, Oral, ONCE, 1 dose, Sun07/05/20 at 1845, Routine ibuprofen (IBU) tablet 600 mg Given 07/05/2020 5:46 PM CDT 600 mg 600 mg, Oral, ONCE, 1 dose, Sun07/05/20 at 1845, DONALD documented in this encounter Insurance Payer Benefit Plan / Subscriber ID Effective Phone Address [facility] [id number] 2018-Pres [address] Medic aid HEALTH CHOICE - HEALTH CHOICE ent [id number] MANAGED MEDICAID [place], [place] [address] documented as of this encounter
--- OUTSIDE RECORDS SUMMARY | 2020-08-11 18:01 | XMS REPORT | Summary of Care ---
:1985 Author Organization [facility] Address [address] [place] [address] Care Team Providers Name Role Phone Marcela Kang MD Unavailable Unavailable Escobar, E Insurance Hmo EscobarAyaan Primary Care Provider Reason for Visit Reason Comments New Evaluation Rt knee pain (Routine) Status Reason Specialty Diagnoses / Referred By Referred To Procedures Contact Contact New Request ORT-ORTHOPAEDIC Diagnoses Other closed fracture of right patella, initial encounter Gerhard Kennedy, SURGERY / Procedures Discharge Follow-Up: Specialty Service ORT-ORTHOPAEDIC SURGERY; 3-5 Days CONSULT/REFERRAL ORTHOPAEDIC SURGERY 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 [id number] [place] [address] Encounter Details Date Type Department Care Team Description 07/06/2020 Office Visit [facility] Yang Magana, Nondisplaced transverse Orthopaedic Surgery- PAC fracture of right [place] [address] patella, initial [address] [facility] encounter for closed [address] [place], [place] fracture (Primary Dx) [place] [address] [phone] Allergies Active Allergy Reactions Severity Noted Date Comments Penicillins Unknown - See comments 07/21/2011 documented as of this encounter (statuses as of 07/06/2020) Medications Medication Sig Dispensed Refills Start Date [...] carbohydrate ratio unit/mL up to 20 units injectionIndications: before each meal Type 1 diabetes mellitus with complication phenytoin ER 300 mg Take 1 capsule by 30 capsule 6 06/14/2018 Active ER capsule mouth at bedtime. Blood-Glucose Meter DX: E11.9 1 Each 0 10/04/2018 Active (FREESTYLE LITE METER) Kit lancets (FREESTYLE Use as directed, 550 Each 1 10/28/2018 Active LANCETS) 28 gauge six times daily, [facility]:E11.9 phenytoin Extended Take 100 mg by [...] KIT, intravenously as HUMAN,) 1 mg needed injectionIndications: (hypoglycemia). Type 1 diabetes mellitus with hypoglycemia and without coma, Hypoglycemia due to insulin flash glucose sensor 1 Kit every 14 2 Kit 3 09/09/2019 Active (FREESTYLE MAN 14 (fourteen) days. DAY SENSOR) KitIndications: Type 1 diabetes mellitus with hypoglycemia and without coma flash glucose 1 Each daily. 1 Each 0 09/09/2019 A ctive scanning reader (FREESTYLE MAN 14 DAY READER) MiscIndications: Type 1 diabetes mellitus with hypoglycemia and without coma Insulin [place], Use as directed 5 500 Each 1 01/14/2020 Active Disposable, (BD times a day E10.65 ULTRAFINE III MINI PEN) 31 gauge x 3/16" NdleIndications: Type 1 diabetes mellitus with hypoglycemia and without coma FREESTYLE LITE STRIPS USE DIRECTED 600 Strip 1 01/14/2020 Active stripIndications: SIX TIMES DAILY Type 1 diabetes E10.9 mellitus with hypoglycemia and without coma ATORVASTATIN 10 mg TAKE 1 TABLET BY 90 tablet 1 03/03/2020 Active tabletIndications: MOUTH EVERYDAY AT Other hyperlipidemia BEDTIME proMETHazine 25 mg Take 1 tablet by 12 tablet 0 04/01/2020 Active tabletIndications: mouth every 8 Pyelonephritis of (eight) hours as left kidney needed for Nausea and Vomiting (N/V). LANTUS SOLOSTAR U-100 INJECT 12 UNITS IN 15 mL 0 0 Active INSULIN 100 unit/mL MORNING AND 5 (3 mL) UNITS AT NIGHT injectionIndications: E10.65 Type 1 diabetes mellitus with hypoglycemia and without coma dicyclomine (BENTYL) Take 1 capsule by 24 capsule 0 06/17/2020 Active 10 mg mouth 4 (four) capsuleIndications: times daily as Delayed gastric needed for emptying Abdominal pain. acetaminophen-codeine Take 1 tablet by 15 tablet 0 07/05/2020 Active 300-30 mg mouth every 8 0 tabletIndications: (eight) hours as acute pain needed for Pain (scale 7-10) for up to 7 days. Indications: acute pain ibuprofen 800 mg Take 1 tablet by 30 tablet 0 07/05/2020 Active tabletIndications: mouth every 6 Other closed fracture (six) hours as of right patella, needed for Pain initial encounter (scale 1-3) or Pain (scale 4-6). cyclobenzaprine 10 mg Take 1 tablet by 15 tablet 0 07/05/2020 Active tabletIndications: mouth 3 (three) Other closed fracture times daily as of right patella, needed for Muscle initial encounter Spasms. 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 documented as of this encounter (statuses as of 07/06/2020) Resolved Problems Problem Noted Date Resolved Date [...] as of this encounter (statuses as of 07/06/2020) Immunizations Name Administration Dates Next Due Influenza [...] Sign Reading Time Taken Comments Blood Pressure 122/83 07/06/2020 4:33 PM CDT Pulse 120 07/06/2020 4:33 PM CDT Temperature - - Respiratory Rate - - Oxygen Saturation - - Inhaled Oxygen Concentration - - Weight 45.4 kg (100 lb) 07/06/2020 4:33 PM CDT Height 152.4 cm (5') 07/06/2020 4:33 PM CDT Body Mass Index 19.53 07/06/2020 4:33 PM CDT documented in this encounter Progress Notes Yang Magana, PAC - 07/06/2020 4:15 PM CDT Cc: Chief Complaint Patient presents with New Evaluation Rt knee pain Vitals: 07/06/20 1633 BP: 122/83 Pulse: 120 Weight: 45.4 kg (100 lb) Height: 60" (152.4 cm) [facility] [address] IN [facility] - [address] Incident occurred: 07/04/20- 2 days out today Incident location: home Injury mechanism: carrying a 5lb gallon water, slipped and fell Pain location: Rt knee DME status: nwb, using office wheel chair, and a cody wrap. Radiology status: epic All Vitals taken, allergies and all medications reviewed, fall risk assessed. Pain level 9. Elva Buenrostro 07/06/2020 4:34 PM Swapna Michaels is a 34 year old female. Landed dirrectly in her right knee on the concrete Allergies Swapna is allergic to pcn [penicillins]. Medications Outpatient Medications Prior to Visit Medication Sig Dispense Refill acetaminophen-codeine 300-30 mg tablet Take 1 tablet by mouth every 8 (eight) hours as needed for Pain (scale 7-10) for up to 7 days. Indications: acute pain 15 tablet 0 cyclobenzaprine 10 mg tablet Take 1 tablet by mouth 3 (three) times daily as needed for Muscle Spasms. 15 tablet 0 ibuprofen 800 mg tablet Take 1 tablet by mouth every 6 (six) hours as needed for Pain (scale 1-3) or Pain (scale 4-6). 30 tablet 0 dicyclomine (BENTYL) 10 mg capsule Take 1 capsule by mouth 4 (four) times daily as needed for Abdominal pain. 24 capsule 0 LANTUS SOLOSTAR U-100 INSULIN 100 unit/mL (3 mL) injection INJECT 12 UNITS IN MORNING AND 5 UNITS AT NIGHT E10.65 15 mL 0 proMETHazine 25 mg tablet Take 1 tablet by mouth every 8 (eight) hours as needed for Nausea and Vomiting (N/V). 12 tablet 0 ATORVASTATIN 10 mg tablet TAKE 1 TABLET BY MOUTH EVERYDAY AT BEDTIME 90 tablet 1 FREESTYLE LITE STRIPS strip USE DIRECTED SIX TIMES DAILY E10.9 600 Strip 1 Insulin [place], Disposable, (BD ULTRAFINE III MINI PEN) 31 gauge x 3/16" Ndle Use as directed 5times a day E10.65 500 Each 1 flash glucose scanning reader (FREESTYLE MAN 14 DAY READER) Misc 1 Each daily. 1 Each 0 flash glucose sensor (FREESTYLE MAN 14 DAY SENSOR) Kit 1 Kit every 14 (fourteen) days. 2 Kit 3 glucagon (GLUCAGON EMERGENCY KIT, HUMAN,) 1 mg injection Inject 1 mg intravenously as needed (hypoglycemia). 1 mg 2 ALPRAZolam 1 mg tablet Take 1 mg by mouth 3 (three) times daily. phenytoin Extended 100 mg capsule Take 100 mg by mouth 2 (two) times daily. pregabalin (LYRICA) 100 mg capsule Take 100 mg by mouth daily. sertraline HCl (SERTRALINE ORAL) Take by mouth daily. lancets (FREESTYLE LANCETS) 28 gauge Misc Use as directed, six times daily, DX:E11.9 550 Each 1 Blood-Glucose Meter (FREESTYLE LITE METER) Kit DX: E11.9 1 Each 0 phenytoin ER 300 mg ER capsule Take 1 capsule by mouth at bedtime. 30 capsule 6 insulin aspart U-100 (NOVOLOG FLEXPEN U-100 INSULIN) 100 unit/mL injection Take according to sliding scale and carbohydrate ratio up to 20 units before each meal 10 mL 2 BD INSULIN SYRINGE HALF UNIT 0.3 mL 31 gauge x 15/64" Syrg insulin syringe-needle U-100 (BD INSULIN SYRINGE ULTRA-FINE) 0.3 mL 31 gauge x 15/64" Syrg Use 4times daily 360 Syringe 3 insulin syringe-needle U-100 1 ml (INSULIN SYRINGE) 1 mL 29 gauge x 1/2" Syrg Use 4 times daily with insulin 360 Syringe 3 No facility-administered medications prior to visit. Histories Past Medical History: Diagnosis Date Abnormal thyroid function test 11/08/2015 Diabetes mellitus Type 1 Diabetes Dysmenorrhea 01/03/2015 Hypertension only during Macrocytic anemia 06/21/2015 Seizures 10/22/2016 Past Surgical History: Procedure Laterality Date SECTION 10/12/2011 CYSTECTOMY 2000 Cyst on Throat removed ENDOSCOPIC CARPAL TUNNEL RELEASE Right 04/11/2019 Surgeon: Дмитрий Haro MD; Location: [facility] ENDOSCOPIC CARPAL TUNNEL RELEASE Left 08/08/2019 Surgeon: Дмитрий Haro MD; Location: [facility] Location MAGNETIC RESONANCE IMAGING UNDER ANESTHESIA N/A 10/24/2016 Surgeon: Anesthesiology; Location: [facility] Social History Socioeconomic History Marital status: Single Spouse name: Not on file Number of children: Not on file Years of education: Not on file Highest education level: Not on file Occupational History Occupation: [employer] Social Needs Financial resource strain: Not on file Food insecurity Worry: Not on file Inability: Not on file Transportation needs Medical: Not on file Non-medical: Not on file Tobacco Use Smoking status: Current Every Day Smoker Packs/day: 0.50 Years: 5.00 Pack years: 2.50 Types: Cigarettes Smokeless tobacco: Never Used Tobacco comment: advised to speak with re rx programs Substance and Sexual Activity Alcohol use: Yes Comment: twice a month Drug use: No Sexual activity: Not Currently Partners: Male Lifestyle Physical activity Days per week: Not on file Minutes per session: Not on file Stress: Not on file Relationships Social connections Talks on phone: Not on file Gets together: Not on file Attends adventist service: Not on file Active member of club or organization: Not on file Attends meetings of clubs or organizations: Not on file Relationship status: Not on file Intimate partner violence Fear of current or ex partner: Not on file Emotionally abused: Not on file Physically abused: Not on file Forced sexual activity: Not on file Other Topics Concern Not on file Social History Narrative Patient denies any violence or domestic abuse. Family History Problem Relation Age of Onset Hypertension Father Diabetes Paternal Grandmother No Significant Medical Problems Mother Arthritis NoFHx Asthma NoFHx defects NoFHx Breast Cancer NoFHx Colon Cancer NoFHx Ovarian Cancer NoFHx Cancer NoFHx Uterine Cancer NoFHx Depression NoFHx Genetic NoFHx Heart NoFHx High cholesterol NoFHx Mental retardation NoFHx Neurological NoFHx Osteoporosis NoFHx Psychiatry NoFHx Review of Systems Constitutional: Positive for activity change. HENT: Negative. Eyes: Negative. Respiratory: Negative. Breasts: Negative. Cardiovascular: Negative. Gastrointestinal: Negative. Genitourinary: Negative. Musculoskeletal: Positive for gait problem and joint swelling. Skin: Negative. Psychiatric/Behavioral: Negative. Endocrine: Endocrine negative Vital Signs BP 122/83 | Pulse 120 | Ht 60" (152.4 cm) | Wt 45.4 kg (100 lb) | BMI 19.53 kg/m Physical Exam Musculoskeletal: Comments: General: Well-developed well-nourished oriented to person place and time HEENT normocephalic atraumatic atraumatic pupils equal round reactive to light extraocular muscles intact Cervical thoracic and lumbar spine without focal deficit normal kyphosis and lordosis Chest clear to auscultation and percussion Cardiovascular regular rate and rhythm without gallop rub or murmur soft without organomegaly Normal bowel sounds Neurologic: Focal myotome or dermatomal deficits Vascular: Intact symmetrical bilateral upper and lower extremities Skin without stasis varicosities or breakdown Extremities without cyanosis clubbing or edema Lymphatics no peripheral lymphedema Psych normal mood and affect. Arrived without knee immobilizer, patella point tender no defect EXAM: XR KNEE 3 VW RIGHT HISTORY: 34 years-old Female presenting with pain s/p fall COMPARISON: None FINDINGS: Radiographs of the right knee demonstrate nondisplaced multifragment patellar fracture. A large volume suprapatellar knee effusion is noted. IMPRESSION Nondisplaced patella fracture Preliminary Report Dictated by Resident: Alex Kang I, Zahraa Valdez MD., have reviewed this study and agree with the above report. Assessment/Plan 1. Nondisplaced transverse fracture of right patella, initial encounter for closed fracture Continue knee immobilizer. wbat Keep knee straight. Follow up in 1 week documented in this encounter Plan of Treatment Date Type Specialty Care Team Description 09/21/2020 Office Visit Endocrinology Diabetes & Zane Butts MD Metabolism [address] [place] [address] [phone] Health Maintenance Due Date Last Done Comments [...] filedocumented in this encounter Visit Diagnoses Diagnosis Nondisplaced transverse fracture of righ t patella, initial encounter for closed fracture - Primary documented in this encounter Insurance Payer Benefit Plan / Subscriber ID Effective Phone Address T e Group [facility] [id number] 2018-Pres [address] Medic aid HEALTH CHOICE - HEALTH CHOICE ent [id number] 1 MANAGED MEDICAID [place], [place] MEDICAID [phone] documented as of this encounter
--- OUTSIDE RECORDS SUMMARY | 2020-08-11 18:01 | XMS REPORT | Summary of Care ---
:1985 Author Organization [facility] Address [address] [place] [address] Care Team Providers Name Role Phone Marcela Kang MD Unavailable Unavailable Ayaan Escobar Insurance Hmo Ayaan Escobar Primary Care Provider Reason for Referral Radiology Services (Routine) Status Reason Specialty Diagnoses / Referred By Referred To Procedures Contact Contact New Request Diagnostic Diagnoses Nondisplaced transverse fracture of right patella, initial encounter for closed fracture Yang Magana, Radiology Procedures XR KNEE <3 VW RIGHT [facility] [address] [place] [address] Reason for Visit Reason Comments Follow-up Knee Pain Nondisplaced transverse frac ture of right patella,DOI: 07/04/20 - 9 days out today. Encounter Details Date Type Department Care Team Description 07/13/2020 Office Visit [facility] Yang Magana, Nondisplaced transverse fracture of right patella, initial encounter for closed fracture (Primary Dx); Orthopaedic Surgery- PAC Nausea [facility] [address] [place] [phone] Allergies Active Allergy Reactions Severity Noted Date Comments Penicillins Unknown - See comments 07/21/2011 documented as of this encounter (statuses as of 07/13/2020) Medications Medication Sig Dispensed Refills Start Date [...] Active LANCETS) 28 gauge six times daily, [facility] [place]:E11.9 phenytoin Extended Take 100 mg [...] 0 09/09/2019 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 ibuprofen 800 mg Take 1 tablet by [...] patella, needed for Muscle initial encounter Spasms. ondansetron (ZOFRAN) Take 1 tablet by 30 tablet 0 07/13/2020 Active 8 mg mouth every 12 tabletIndications: (twelve) hours. 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 documented as of this encounter Last Filed Vital Signs Vital Sign Reading Time Taken Comments Blood Pressure 161/109 07/13/2020 5:05 PM CDT Pulse 125 07/13/2020 5:05 PM CDT Temperature - - Respiratory Rate - - Oxygen Saturation - - Inhaled Oxygen Concentration - - Weight 45.4 kg (100 lb) 07/13/2020 4:58 PM CDT Height 152.4 cm (5') 07/13/2020 4:58 PM CDT Body Mass Index 19.53 07/13/2020 4:58 PM CDT documented in this encounter Progress Notes Yang Magana S, PAC - 07/13/2020 4:15 PM CDT Cc: Chief Complaint Patient presents with Follow-up Knee Pain Nondisplaced transverse fracture of right patella,DOI: 07/04/20 - 9 days out today. Swapna Michaels is a 35 year old female. Here for follow-up The encounter diagnosis was Nondisplaced transverse fracture of right patella, initial encounter for closed fracture. Date of injury 07/04/2020 Gets sick with her pain medication. Landed dirrectly in her right knee on the concrete Allergies Swapna is allergic to pcn [penicillins]. Medications Outpatient Medications Prior to Visit Medication Sig Dispense Refill cyclobenzaprine 10 mg tablet Take 1 tablet [...] TIMES DAILY E10.9 600 Strip 1 Insulin [place], Disposable, (BD ULTRAFINE III MINI PEN) 31 [...] Right 04/11/2019 Surgeon: Дмитрий Haro MD; Location: [facility] ENDOSCOPIC CARPAL TUNNEL RELEASE Left 08/08/2019 Surgeon: Дмитрий Haro MD; Location: [place] [facility] MAGNETIC RESONANCE IMAGING UNDER ANESTHESIA N/A 10/24/2016 Surgeon: Anesthesiology; Location: [facility] Social History Socioeconomic History Marital status: Single Spouse name: Not on file Number of children: Not on file Years of education: Not on file Highest education level: Not on file Occupational History Occupation: [employer] Social Needs Financial resource strain: Not on [...] file Gets together: Not on file Attends latter day service: Not on file Active member of [...] Psychiatric/Behavioral: Negative. Endocrine: Endocrine negative Vital Signs Vitals: 07/13/20 1658 BP: (!) 167/106 Pulse: 125 Weight: 45.4 kg (100 lb) Height: 60" (152.4 cm) Physical Exam Musculoskeletal: Comments: Physical Exam Constitutional: oriented to person, place, and time. appears well-developed and well-nourished. HENT: Head: Normocephalic and atraumatic. Right Ear: External ear normal. Left Ear: External ear normal. Eyes: Conjunctivae are normal. Neck: Normal range of motion. No strabismus Neck supple. Cardiovascular: Normal rate and regular rhythm. Pulmonary/Chest: Normal respiratory rate equal chest rise and fall in no apparent distress Abdominal: Abdomen nondistended nontender Neurological: alert and oriented to person, place, and time. No asymmetry Skin: Skin is warm and dry. Psychiatric: normal mood and affect. behavior is normal. Judgment and thought content normal. Nursing note and vitals reviewed. She still point tender to palpation of her patella there is no palpable defect she came in with her knee immobilizer on Assessment/Plan 1. Nondisplaced transverse fracture of right patella, initial encounter for closed fracture XR KNEE<3 VW RIGHT Continue knee immobilizer for another week we will follow-up in one week and re-x-ray she should notlet her knee bent for any reason She gets nausea with her pain medicine and I will send her in some nausea medicine. documented in this encounter Plan of Treatment Date Type Specialty Care Team Description 09/21/2020 Office Visit Endocrinology Diabetes & Zane Butts MD Metabolism [address] [place] [address] [phone] Health Maintenance Due Date Last Done Comments [...] SERIES documented as of this encounter Results XR KNEE <3 VW RIGHT (07/13/2020 4:39 PM CDT) Specimen Narrative Performed At This result has an attachment that is no t available. Transverse fracture of the patella remains nondisplaced PACS Performing Organization Address City/State/Zipcode Phone Number PACS documented in this encounter Visit Diagnoses Diagnosis Nondisplaced transverse fracture of righ t patella, initial encounter for closed fracture - Primary Nausea Nausea alone documented in this encounter Insurance Payer Benefit Plan / Subscriber ID Effective Phone Address T e Group Dates [employer] [id number] 2018-Pres [address] Medic aid HEALTH CHOICE - HEALTH CHOICE ent [id number] 1 MANAGED MEDICAID [place], [place] MEDICAID [phone] documented as of this encounter
--- OUTSIDE RECORDS SUMMARY | 2020-08-11 18:01 | XMS REPORT | Summary of Care ---
:1985 Author Organization [facility] - [facility] Address [address] [place] [address] Care Team Providers Name Role Phone Marcela [...] ORT-ORTHOPAEDIC SURGERY; 3-5 Days CONSULT/REFERRAL ORTHOPAEDIC SURGERY ANIMAL TRAINER 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 [id number] [place] [address] Encounter Details Date Type Department Care Team Description 07/06/2020 Office Visit [facility] Yang Magana, Nondisplaced transverse Orthopaedic Surgery- PAC fracture of right [place] [address] patella, initial [address] encounter for closed [address] [place], [place] fracture (Primary Dx) [place] [address] [phone] Allergies Active Allergy Reactions Severity Noted Date [...] Active LANCETS) 28 gauge six times daily, [facility] DX:E11.9 phenytoin Extended Take 100 mg by [...] mellitus with hypoglycemia and without coma Insulin Friona, Use as directed 5 500 Each 1 [...] diabetes mellitus 07/21/2011 Overview: ICD10 Diagnosis 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 documented as of this encounter (statuses [...] kg (100 lb) Height: 60" (152.4 cm) [facility] [id number] [place] [facility] - [address] Incident occurred: 07/04/20- 2 days out [...] TIMES DAILY E10.9 600 Strip 1 Insulin Friona, Disposable, (BD ULTRAFINE III MINI PEN) 31 [...] Left 08/08/2019 Surgeon: Дмитрий Haro MD; Location: [facility] Location MAGNETIC RESONANCE IMAGING UNDER ANESTHESIA N/A 10/24/2016 Surgeon: Anesthesiology; Location: [facility] Location Social History Socioeconomic History Marital status: Single Spouse name: Not on file Number of children: Not on file Years of education: Not on file Highest education level: Not on file Occupational History Occupation: [employer] Social Needs Financial resource strain: Not on [...] file Gets together: Not on file Attends scientologist service: Not on file Active member of [...] Diabetes & Zane Butts MD Metabolism [address] [place] [address] [phone] Health Maintenance Due Date Last Done Comments [...] ID Effective Phone Address T e Group [facility] [id number] 2018-Pres [address] Medic aid HEALTH CHOICE - HEALTH CHOICE ent [id number] 1 MANAGED MEDICAID [place], [place] MED[place]ID [phone] documented as of this encounter
--- OUTSIDE RECORDS SUMMARY | 2020-08-11 18:01 | XMS REPORT | Summary of Care ---
:1985 Author Organization [facility] Address [address] [place] [address] Care Team Providers Name Role Phone Marcela [...] <3 VW RIGHT PAC [address] [place] [address] Reason for Visit Reason Comments Follow-up Knee Pain Nondisplaced transverse frac ture of right patella,DOI: 07/04/20 - 9 days out today. Encounter Details Date Type Department Care Team Description 07/13/2020 Office Visit [facility] Yang Magana, Nondisplaced transverse fracture of right patella, initial encounter for closed fracture (Primary Dx); Orthopaedic Surgery- PAC Nausea Nabeel [address] [place] [address] Allergies Active Allergy Reactions [...] Active LANCETS) 28 gauge six times daily, [facility] DX:E11.9 phenytoin Extended Take 100 mg by [...] mellitus with hypoglycemia and without coma Insulin [place], Use as directed 5 500 Each 1 [...] diabetes mellitus 07/21/2011 Overview: ICD10 Diagnosis 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 documented as of this encounter (statuses [...] TIMES DAILY E10.9 600 Strip 1 Insulin [place], Disposable, (BD ULTRAFINE III MINI PEN) 31 [...] Right 04/11/2019 Surgeon: Дмитрий Haro MD; Location[place] [facility] ENDOSCOPIC CARPAL TUNNEL RELEASE Left 08/08/2019 Surgeon: Дмитрий Haro MD; Location: [place] [facility] MAGNETIC RESONANCE IMAGING UNDER ANESTHESIA N/A 10/24/2016 Surgeon: Anesthesiology; Location: [facility] Social History Socioeconomic History Marital status: Single Spouse name: Not on file Number of children: Not on file Years of education: Not on file Highest education level: Not on file Occupational History Occupation: [employer] [place] Social Needs Financial resource strain: Not on [...] file Gets together: Not on file Attends druze service: Not on file Active member of [...] Diabetes & Zane Butts MD Metabolism [address] [place] [address] [phone] Health Maintenance Due Date Last Done Comments [...] Address T e Group Dates [facility] [id number] 2018-Pres [address] Medic aid HEALTH CHOICE - HEALTH CHOICE ent [id number] 1 MANAGED MEDICAID [place], [place]ICAID [address] documented as of this encounter
--- OUTSIDE RECORDS SUMMARY | 2020-08-11 18:02 | XMS REPORT | Summary of Care ---
:1985 Author Organization [facility] Address [address] [place] [address] Care Team Providers Name Role Phone Marcela [...] XR KNEE <3 VW RIGHT PAC [address] [place] [address] Reason for Visit Reason Comments Follow-up Nondisplaced transverse frac ture of right patella 07/04/2020 - 2 weeks 2 days Encounter Details Date Type Department Care Team Description 07/20/2020 Office Visit [facility] Yang Magana, Nondisplaced transverse Orthopaedic Surgery- PAC fracture of right [place] [address] patella, initial [address] encounter for closed [address] [place], [place] fracture (Primary Dx) [place] [address] Allergies Active Allergy Reactions Severity Noted Date Comments Penicillins Unknown - See comments 07/21/2011 documented as of this encounter (statuses as of 07/20/2020) Medications Medication Sig Dispensed Refills Start Date [...] 28 gauge six times daily, [facility] DX:E11.9 phenytoin Extended Take 100 mg by [...] mellitus with hypoglycemia and without coma Insulin [place], Use as directed 5 500 Each 1 [...] patella, initial encounter for closed fracture, Nausea cyclobenzaprine 10 mg Take 1 tablet by 40 tablet 0 07/20/2020 Active tabletIndications: mouth 3 (three) Nondisplaced times daily. 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 documented as of this encounter (statuses as of 07/20/2020) Resolved Problems Problem Noted Date Resolved Date [...] as of this encounter (statuses as of 07/20/2020) Immunizations Name Administration Dates Next Due Influenza [...] Sign Reading Time Taken Comments Blood Pressure 143/91 07/20/2020 10:29 AM CDT Pulse 116 07/20/2020 10:29 AM CDT Temperature - - Respiratory Rate - - Oxygen Saturation - - Inhaled Oxygen Concentration - - Weight 45.4 kg (100 lb) 07/20/2020 10:24 AM CDT Height 152.4 cm (5') 07/20/2020 10:24 AM CDT Body Mass Index 19.53 07/20/2020 10:24 AM CDT documented in this encounter Progress Notes Yang Magana, PAC - 07/20/2020 11:15 AM CDT Cc: Chief Complaint Patient presents with Follow-up Nondisplaced transverse fracture of right patella 07/04/2020 - 2 weeks 2 days Swapna Michaels is a 35 year old female. Here for follow-up The encounter diagnosis was Nondisplaced transverse fracture of right patella, initial encounter for closed fracture. Date of injury 07/04/2020 She came in with her knee immobilizer on today still having pain in her patella Gets sick with her pain medication. Landed dirrectly in her right knee on the concrete Allergies Swapna is allergic to pcn [penicillins]. Medications Outpatient Medications Prior to Visit Medication Sig Dispense Refill ondansetron (ZOFRAN) 8 mg tablet Take 1 tablet by mouth every 12 (twelve) hours. 30 tablet 0 cyclobenzaprine 10 mg tablet Take [...] TIMES DAILY E10.9 600 Strip 1 Insulin [place], Disposable, (BD ULTRAFINE III MINI PEN) 31 [...] Right 04/11/2019 Surgeon: Дмитрий Haro MD; Location: [facility] OR Location ENDOSCOPIC CARPAL TUNNEL RELEASE Left 08/08/2019 Surgeon: Дмитрий Haro MD; Location: [facility] OR Location MAGNETIC RESONANCE IMAGING UNDER ANESTHESIA N/A 10/24/2016 Surgeon: Anesthesiology; Location: [facility] Location Social History Socioeconomic History Marital status: Single Spouse name: Not on file Number of children: Not on file Years of education: Not on file Highest education level: Not on file Occupational History Occupation: [employer] Social Needs Financial resource strain: Not on file Food insecurity Worry: Not on file Inability: Not on file Transportation needs Medical: Not on file Non-medical: Not on file Tobacco Use Smoking status: Current Every Day Smoker Packs/day: 0.50 Years: 5.00 Pack years: 2.50 Types: Cigarettes Smokeless tobacco: Never Used Tobacco comment: advised to speak with md re rx programs Substance and Sexual Activity Alcohol use: Yes Comment: twice a month Drug use: No Sexual activity: Not Currently Partners: Male Lifestyle Physical activity Days per week: Not on file Minutes per session: Not on file Stress: Not on file Relationships Social connections Talks on phone: Not on file Gets together: Not on file Attends anabaptism service: Not on file Active member of [...] Negative. Endocrine: Endocrine negative Vital Signs BP (!) 162/92 | Pulse 120 | Ht 60" (152.4 cm) | Wt 45.4 kg (100 lb) | BMI 19.53 kg/m Physical Exam Assessment/Plan 1. Nondisplaced transverse fracture of right patella, initial encounter for closed fracture XR KNEE<3 VW RIGHT She is having difficulty with her pain control, but the muscle relaxer she was given initially helpher pain control quite a bit and combination. She will continue her knee immobilizer keeping her leg straight we will follow- up in one month. documented in this encounter Plan of Treatment Date Type Specialty Care Team Description 09/21/2020 Office Visit Endocrinology Diabetes & Zane Butts MD Metabolism [address] [place] [address] [phone] Health Maintenance Due Date Last Done Comments HgA1C 07/14/2020 01/14/2020, 09/09/2019, 06/03/2019, Additional history exists INFLUENZA VACCINE (#1) 2020 02/26/2019, 10/15/2011 EYE EXAM 09/09/2020 08/21/2018, 07/05/2016 Postponed from (Previously completed) 9 (Parent Refused) FOOT EXAM 01/14/2021 01/14/2020, 01/14/2020, 03/04/2019, Additional history exists LDL-C 01/14/2021 01/14/2020, 12/13/2018, 06/05/2017 URINE MICROALBUMIN 01/14/2021 01/14/2020, 12/13/2018, 06/05/2017, Additional history exists CREATININE (SERUM) 06/17/2021 06/17/2020, 04/01/2020, 01/14/2020, Additional history exists Depression Screening 07/20/2021 07/20/2020 PAP SMEAR 09/19/2021 09/19/2018, 01/01/2015, 12/05/2011 DTaP,Tdap,and Td Vaccines 10/07/2027 10/07/2017, 01/01/2015 (3 - Td) PNEUMOCOCCAL 0-64 YEARS Completed 10/15/2011 COMBINED SERIES documented as of this encounter Results XR KNEE <3 VW RIGHT (07/20/2020 10:18 AM CDT) Specimen Narrative Performed At This result has an attachment that is no t available. She has a transverse patella fracture that remains nondisplaced there is PACS no step-off on the articular surface. Performing Organization Address City/State[facility] Phone Number PACS documented in this encounter Visit Diagnoses Diagnosis Nondisplaced transverse fracture of righ t patella, initial encounter for closed fracture - Primary documented in this encounter Insurance Payer Benefit Plan / Subscriber ID Effective Phone Address T e Group Dates [facility] [id number] 2018-Pres [address] Medic aid HEALTH CHOICE - HEALTH CHOICE ent [id number] 1 MANAGED MEDICAID [place], [place] MEDICAID [phone] documented as of this encounter
--- OUTSIDE RECORDS SUMMARY | 2020-08-11 18:02 | XMS REPORT | Summary of Care ---
:1985 Author Organization [facility] Address [address] [place] [address] Care Team Providers Name Role Phone Marcela [...] VW RIGHT PAC [address] [place] [address] Reason for Visit Reason Comments Follow-up Nondisplaced transverse frac ture of right patella 07/04/2020 - 2 weeks 2 days Encounter Details Date Type Department Care Team Description 07/20/2020 Office Visit [facility] Yang Magana, Nondisplaced transverse Orthopaedic Surgery- PAC fracture of right [place] [address] [place] patella, initial [address] encounter for closed [address] [place], [place] fracture (Primary Dx) [place] [address] Allergies Active Allergy Reactions [...] Active LANCETS) 28 gauge six times daily, [facility] DX:E11.9 phenytoin Extended Take [...] mellitus with hypoglycemia and without coma Insulin [place], Use as directed 5 500 Each 1 [...] diabetes mellitus 07/21/2011 Overview: ICD10 Diagnosis 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 documented as of this encounter (statuses [...] TIMES DAILY E10.9 600 Strip 1 Insulin [place], Disposable, (BD ULTRAFINE III MINI PEN) 31 [...] Right 04/11/2019 Surgeon: Дмитрий Haro MD; Location: [facility] OR Location ENDOSCOPIC CARPAL TUNNEL RELEASE Left 08/08/2019 Surgeon: Дмитрий Haro MD; Location: [place] OR Location MAGNETIC RESONANCE IMAGING UNDER ANESTHESIA N/A 10/24/2016 Surgeon: Anesthesiology; Location: [facility] Location Social History Socioeconomic History Marital status: Single Spouse name: Not on file Number of children: Not on file Years of education: Not on file Highest education level: Not on file Occupational History Occupation: [employer] [place] Social Needs Financial resource strain: Not on [...] file Gets together: Not on file Attends hindu service: Not on file Active member of [...] Endocrinology Diabetes & Zane Butts MD Metabolism [address] [place] [address] [phone] Health Maintenance Due Date Last Done Comments [...] on the articular surface. Performing Organization Address City/State/[facility] Phone Number PACS documented in this encounter Visit Diagnoses Diagnosis Nondisplaced transverse fracture of righ t patella, initial encounter for closed fracture - Primary documented in this encounter Insurance Payer Benefit Plan / Subscriber ID Effective Phone Address T e Group Dates [facility] [id number] 2018-Pres [address] Medic aid HEALTH CHOICE - HEALTH CHOICE ent [id number] 1 MANAGED MEDICAID [place] [phone] documented as of this encounter
--- OUTSIDE RECORDS SUMMARY | 2020-08-11 18:02 | XMS REPORT | Summary of Care ---
:1985 Author Organization [facility] Address [address] [place] [address] Care Team Providers Name Role Phone Marcela Kang MD Unavailable Unavailable Ayaan Escobar Insurance Hmo Ayaan Escobar Primary Care Provider Reason for Visit Radiology Services (Routine) Status Reason Specialty Diagnoses / Referred By Referred To Procedures Contact Contact New Request Diagnostic Diagnoses Nondisplaced transverse fracture of right patella, initial encounter for closed fracture Yang Magana, Radiology Procedures XR KNEE <3 VW RIGHT PAC [address] [place] [address] Encounter Details Date Type Department Care Team Description 07/13/2020 Hospital Encounter [facility] Yang Magana , [facility] Orthopedics - PAC Radiology [address] [place] [address] [place] [address] Allergies Active Allergy Reactions Severity Noted Date Comments Penicillins Unknown - See comments 07/21/2011 documented as of this encounter (statuses as of 07/14/2020) Medications Medication Sig Dispensed Refills Start Date [...] Active LANCETS) 28 gauge six times daily, [facility] DX:E11.9 phenytoin Extended Take 100 mg by [...] mellitus with hypoglycemia and without coma Insulin [place], Use as directed 5 500 Each 1 [...] as of this encounter (statuses as of 07/14/2020) Active Problems Problem Noted Date Diabetic ketoacidosis [...] diabetes mellitus 07/21/2011 Overview: ICD10 Diagnosis 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 of 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 encounter (statuses as of 07/14/2020) Resolved Problems Problem Noted Date Resolved Date [...] as of this encounter (statuses as of 07/14/2020) Immunizations Name Administration Dates Next Due Influenza [...] Treatment Date Type Specialty Care Team Description 07/20/2020 Office Visit 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 Yang Magana, PAC [address] [place] [address] 09/21/2020 Office Visit Endocrinology Diabetes & Zane Butts MD Metabolism [address] [place] [address] [phone] Health Maintenance Due Date Last Done Comments [...] Name Priority Date/Time Associated Diagnosis Comme nts XR KNEE <3 VW RIGHT Routine 07/13/2020 4:39 Nondisplaced Resu lts for this PM CDT transverse fracture procedur e are in of right patella, the result s initial encounter for sectio n. closed fracture documented in this encounter Results XR KNEE <3 VW RIGHT (07/13/2020 4:39 PM CDT) Specimen Narrative Performed At This result has an attachment that is no t available. Transverse fracture of the patella remains nondisplaced PACS Performing Organization Address City/State/Zipcode Phone Number PACS documented in this encounter Visit Diagnoses Diagnosis Nondisplaced transverse fracture of righ t patella, initial encounter for closed fracture documented in this encounter Insurance Payer Benefit Plan / Subscriber ID Effective Phone Address T ype Group Dates [facility] [id number] 2018-Pres [address] Medic aid HEALTH CHOICE - HEALTH CHOICE ent [id number] 1 MANAGED MEDICAID [place] [address] documented as of this encounter
--- OUTSIDE RECORDS SUMMARY | 2020-08-11 18:03 | XMS REPORT | Summary of Care ---
:1985 Author Organization [facility] Address [address] [place] [address] Care Team Providers Name Role Phone Marcela [...] KNEE <3 VW RIGHT PAC [address] [place] [address] Encounter Details Date Type Department Care Team Description 07/20/2020 Hospital Encounter Critical [facility] hospital Yang Magana , [facility] Orthopedics - PAC Radiology [address] [place] [address] [place] [address] Allergies Active Allergy Reactions Severity Noted Date Comments Penicillins Unknown - See comments 07/21/2011 documented as of this encounter (statuses as of 07/21/2020) Medications Medication Sig Dispensed Refills Start Date [...] Active LANCETS) 28 gauge six times daily, [facility] DX:E11.9 phenytoin Extended Take 100 mg by [...] mellitus with hypoglycemia and without coma Insulin [place], Use as directed 5 500 Each 1 [...] as of this encounter (statuses as of 07/21/2020) Active Problems Problem Noted Date Diabetic ketoacidosis [...] diabetes mellitus 07/21/2011 Overview: ICD10 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 documented as of this encounter (statuses as of 07/21/2020) Resolved Problems Problem Noted Date Resolved Date [...] as of this encounter (statuses as of 07/21/2020) Immunizations Name Administration Dates Next Due Influenza [...] Treatment Date Type Specialty Care Team Description 08/19/2020 Office Visit 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 Yang Magana, PAC [address] [place] [address] 09/21/2020 Office Visit Endocrinology Diabetes & Zane Butts MD Metabolism [address] [place] [address] [phone] Health Maintenance Due Date Last Done Comments [...] nts XR KNEE <3 VW RIGHT Routine 07/20/2020 10:18 Nondisplaced Resu lts for this AM CDT transverse fracture procedur e are in [...] on the articular surface. Performing Organization Address City/State/[facility] Phone Number PACS documented in this encounter Visit Diagnoses Diagnosis Nondisplaced transverse fracture of righ t patella, initial encounter for closed fracture documented in this encounter Insurance Payer Benefit Plan / Subscriber ID Effective Phone Address T ype Group Dates [facility] [id number] 2018-Pres [address] Medic aid HEALTH CHOICE - HEALTH CHOICE ent [id number] 1 MANAGED MEDICAID [place], [place] [phone] documented as of this encounter
--- OUTSIDE RECORDS SUMMARY | 2020-08-11 18:03 | XMS REPORT | Summary of Care ---
:1985 Author Organization [facility] Address [address] [place] [address] Care Team Providers Name Role Phone Marcela Kang MD Unavailable Unavailable Escobar, E Insurance Hmo Escobar, E Primary Care Provider Reason for Visit Reason Comments Refill Request Encounter Details Date Type Department Care Team Description 07/29/2020 Refill [facility] Endocrinology- Tanya [place] [address] [address] [place] [address] [phone] Allergies Active Allergy Reactions Severity Noted Date Comments Penicillins Unknown - See comments 07/21/2011 documented as of this encounter (statuses as of 07/29/2020) Medications Medication Sig Dispensed Refills Start End Status Date Date insulin Use 4 times daily 360 [...] 0 A ctive HALF UNIT 0.3 mL 31 6 gauge x 15/64" Syrg insulin aspart Take according to 10 mL 2 Active U-100 (NOVOLOG sliding scale and 8 FLEXPEN U-100 carbohydrate INSULIN) 100 ratio up to 20 unit/mL units before each injectionIndication meal s: Type 1 diabetes mellitus with complication phenytoin ER 300 mg Take 1 capsule by 30 capsule 6 Active ER capsule mouth at bedtime. 8 Blood-Glucose Meter DX: E11.9 1 Each 0 Active (FREESTYLE LITE 8 METER) Kit lancets (FREESTYLE Use as directed, [...] intravenously as 9 HUMAN,) 1 mg needed injectionIndication (hypoglycemia). s: [...] mellitus with hypoglycemia and without coma Insulin [place], Use as directed 5 500 Each 1 Active Disposable, (BD times a day 0 ULTRAFINE III MINI E10.65 PEN) 31 gauge x 3/16" NdleIndications: Type 1 diabetes mellitus with hypoglycemia and without coma ATORVASTATIN 10 mg TAKE 1 TABLET BY 90 tablet 1 Active tabletIndications: MOUTH EVERYDAY AT 0 Other BEDTIME hyperlipidemia proMETHazine 25 mg Take 1 tablet by 12 tablet 0 Active tabletIndications: mouth every 8 0 Pyelonephritis of (eight) hours as left kidney needed for Nausea and Vomiting (N/V). LANTUS SOLOSTAR INJECT 12 UNITS 15 mL 0 Active U-100 INSULIN 100 IN MORNING AND 5 0 unit/mL (3 mL) UNITS AT NIGHT injectionIndication E10.65 s: Type 1 diabetes mellitus with hypoglycemia and without coma dicyclomine Take 1 capsule by 24 capsule 0 Active (BENTYL) 10 mg mouth 4 (four) 0 capsuleIndications: times daily as Delayed gastric needed for emptying Abdominal pain. ibuprofen 800 mg Take 1 tablet by 30 tablet 0 Active tabletIndications: mouth every 6 0 Other closed (six) hours as fracture of right needed for Pain patella, initial (scale 1-3) or encounter Pain (scale 4-6). cyclobenzaprine 10 Take 1 tablet by 15 tablet 0 Active mg mouth 3 (three) 0 tabletIndications: times daily as Other closed needed for Muscle fracture of right Spasms. patella, initial encounter ondansetron Take 1 tablet by 30 tablet 0 A ctive (ZOFRAN) 8 mg mouth every 12 0 tabletIndications: (twelve) hours. Nondisplaced transverse fracture of right patella, initial encounter for closed fracture, Nausea cyclobenzaprine 10 Take 1 tablet by 40 tablet 0 Active mg mouth 3 (three) 0 tabletIndications: times daily. 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 documented in this encounter Plan of Treatment Date Type Specialty Care Team Description 08/19/2020 Office Visit 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 Yang Magana, PAC [address] [place] [phone] 09/21/2020 Office Visit Endocrinology Diabetes & ButtsZane MD Metabolism [address] [place] [address] [phone] Health Maintenance Due Date Last Done Comments [...] Plan / Subscriber ID Effective Phone Address [facility] [id number] 2018-Pres [address] Medic aid HEALTH CHOICE - HEALTH CHOICE ent [id number] 1 MANAGED MEDICAID [place] [phone] documented as of this encounter
[2020-08-11 19:23] LABS: Urine Blood NEGATIVE (NEG); Urine Glucose 2+ (NEG); Urine Protein NEGATIVE (NEG)
--- NOTE | 2020-08-11 19:35 | ER ---
Nurse's Notes [facility] Name: Swapna Michaels Age: 35 yrs Sex: Female : 1985 Arrival Date: 08/11/2020 Time: 18:17 Bed 2 Private MD: Diagnosis: Presentation: 08/11 18:23 Chief complaint: EMS states: EMS called out for AMS, family reports that pt was acting ph abnormal and "speaking gibberish", hx of IDDM so family administered glucagon, BGL for EMS 425, pt appeared drowsy, oriented to person only, HR 115, other VSS, EMS states that [employer] pt became oriented x 4 but continues to be drowsy w/ slurred speech, admits to drinking "3 beers" today, has hx of seizures. Coronavirus screen: Client denies travel out of the [place] in the last 14 days. At this time, the client does not indicate any symptoms associated with coronavirus-19. Ebola Screen: No symptoms or risks identified at this time. Initial Sepsis Screen: Does the patient meet any 2 criteria? Altered Mental Status. Does the patient have a suspected source of infection? No. Patient's initial sepsis screen is negative. Risk Assessment: Do you want to hurt yourself or someone else? Patient reports no desire to harm self or others. Onset of symptoms was August 11, 2020. 18:23 Method Of Arrival: EMS: [facility] 18:23 Acuity: BETY 2 ph Historical: - Allergies: 18:32 PENICILLINS; ph - PMHx: 18:32 Diabetes - IDDM; Seizures; ph - Immunization history:: Adult Immunizations unknown. - Social history:: Smoking status: unknown. Screenin:21 Abuse screen: Denies threats or abuse. Denies injuries from another. Nutritional ph screening: No deficits noted. Tuberculosis screening: No symptoms or risk factors identified. Fall Risk Fall in past 12 months (25 points). Secondary diagnosis (15 points) seizures, IV access (20 points). Ambulatory Aid- None/Bed Rest/Nurse Assist (0 pts). Gait- Impaired (20 pts.). Mental Status- Overestimates/Forgets Limitations (15 pts.). Total Boles Fall Scale indicates High Risk Score (45 or more points). Fall prevention measures have been instituted. Side Rails Up X 2 Placed Close to Nursing Station Frequent Obs/Assessments Occuring Family Present and informed to notify staff if the need to leave the bedside As available patient and family educated on Fall Prevention Program and Strategies. Assessment: 18:32 Reassessment: Returned to room to assess pt, pt found on ground at foot of stretcher ph still connected to BP cuff w/ bothe side rails up, when asked how she fell pt states, " That nurse crushed my leg under the bed." Pt assisted back to bed by myself and Osbaldo GAY, pt then noted to roll and nearly fall from bed again before rail could be raised. 18:35 General: Appears in no apparent distress. slender, Behavior is drowsy, listless. Pain: ph Complains of pain in right knee. Neuro: Level of Consciousness is awake, lethargic, Oriented to person, place, Speech is slurred, Pupils are dilated. Cardiovascular: Capillary refill < 3 seconds in bilateral fingers Patient's skin is warm and dry. Respiratory: Airway is patent Respiratory effort is even, unlabored. GI: No signs and/or symptoms were reported involving the gastrointestinal system. Derm: Skin is intact, Skin is pink, warm \\T\\ dry. Musculoskeletal: Circulation, motion, and sensation intact. Range of motion: intact in all extremities, Reports pain in right knee knee immobilizer in place. 18:45 Reassessment: Patient appears in no apparent distress at this time. Pt's fiance at bedside, states, " We've only been together 5 months so I've only seen her have one seizure, she was a little tired afterwards but got back to normal pretty quick." Pt remains lethargic and drowsy at this time, states that she has to use the restroom but refuses bedside commode, spoke w/ fiance who states that he will help her in restroom. 18:55 Reassessment: Pt taken to restroom via wheelchair, accompanied by SO, urine sample ph obtained. 19:31 Reassessment: Patient appears in no apparent distress at this time. Patient and/or jb4 family updated on plan of care and expected duration. Pain level reassessed. Patient is alert, oriented x 3, equal unlabored respirations, skin warm/dry/pink. Pt verbalized wanting to leave AMA. Explained to pt and significant other that a provider has not seen the patient yet and that blood work and an EKG need to be performed in order to find a cause for current symptoms. Explained to the patient that symptoms could worsen to the point of . Pt verbalized understanding of risk and signed AMA form. Vital Signs: 18:23 BP 131 / 87; Pulse 110; Resp 18; Temp 97.8; Pulse Ox 98% on R/A; Weight 49.9 kg; Height ph 5 ft. 0 in. (152.40 cm); 19:15 BP 134 / 99; Pulse 118; Resp 16; Pulse Ox 100% on R/A; jb4 18:23 Body Mass Index 21.48 (49.90 kg, 152.40 cm) ph ED Course: 18:17 Patient arrived in ED. em1 18:23 Zenaida Dewitt, RN is Primary Nurse. ph 18:31 Triage completed. ph 19:22 Arm band placed on Patient placed in an exam room. ph 19:22 Patient has correct armband on for positive identification. Bed in low position. Call light in reach. Side rails up X2. Pulse ox on. NIBP on. 19:26 Sanford Rahman MD is Attending Physician. marcelina Administered Medications: No medications were administered Point of Care Testing: Blood Glucose: 19:15 Blood Glucose: 418 mg/dL; jb4 Ranges: Outcome: 19:33 AMA jb4 19:33 Condition: stable 19:33 Discharge instructions given to patient, significant other, Instructed on follow up and referral plans. Demonstrated understanding of follow-up care. 19:35 Patient left the ED. jb4 Signatures: Sanford Rahman MD MD cha Martinez, Eric em1 Zenaida Dewitt, VICTOR HUGO RN Kishna Whitaker RN RN jb4 Corrections: (The following items were deleted from the chart) 19:35 19:31 Reassessment: Pt verbalized wanting to leave AMA. Explained to pt and significant jb4 other that a provider has not seen the patient yet and that blood work and an EKG need to be performed in order to find a cause for current symptoms. Explained to the patient that symptoms could worsen to the point of . Pt verbalized understanding of risk and signed AMA form. jb4
[2020-08-11 19:36] LABS: Barbiturates NEGATIVE (NEGATIVE); Benzodiazepines NEGATIVE (NEGATIVE); Cocaine NEGATIVE (NEGATIVE); METHAMPHETAM NEGATIVE (NEGATIVE); Methadone NEGATIVE (NEGATIVE); Opiates NEGATIVE (NEGATIVE); Phencyclidine NEGATIVE (NEGATIVE); THC Cannibis NEGATIVE (NEGATIVE)
[2020-08-11 19:48] VITALS: BP 134/99; TEMP 97.8; O2SAT 100
== END 2020-08-11 19:35 | disposition left against medical advice (07) ==
LOC: ER 17:57
DX: Z53.21 Procedure and treatment not carried out due to patient leaving prior to being seen by health care provider (principal)
CPT/HCPCS: 80307; 81003; 81025; 82947; 93005; 99283

== ENCOUNTER 2023-04-04 11:35 | Emergency (ER) | payer OTHER ==
[2023-04-04] MEDS ORDERED: LORazepam 2 MG/ML VIAL ONE (12:16)
[2023-04-04] MEDS ORDERED: ONDANSETRON 4 MG/2 ML VIAL ONE (12:17)
[2023-04-04] MEDS ORDERED: HYDROCODONE/APAP 5/325 MG TAB ONE (12:17)
--- OUTSIDE RECORDS SUMMARY | 2023-04-04 12:17 | XMS REPORT | Continuity of Care Document ---
:1985 Author Organization [facility] t Address [address] [place] [address] Care Team Providers Name Role Phone SRAVANI ALEX Yanes Primary Care Physician Unavailable NICHOLAS SALVADOR Attending Clinician Unavailable MANE JARVIS Attending Clinician Unavailable MANE JARVIS Attending Clinician Unavailable SORAIDA GRAYSON Attending Clinician Unavailable Ger Light DO Attending Clinician Brandon Villagran MD Attending Clinician Soraida Grayson MD Attending Clinician Elle Scott RN Attending Clinician ALMAS DOBBS Attending Clinician Unavailable Rudy Delvalle DO Attending Clinician Almas Dobbs MD Attending Clinician Nicholas Salvador MD Attending Clinician Doctor Unassigned, [place] Attending Clinician Unavailable RAIZA RANDLE Attending Clinician Unavailable Raiza Guillen Attending Clinician RADIOLOGY Attending Clinician Unavailable Lab, Ang - Db Attending Clinician Unavailable Mnae Jarvis MD Attending Clinician Benjamín SHUKLA, Erna Attending Clinician Angela SHUKLA, Cinthya Fischer Attending Clinician CINTHYA MILLER Attending Clinician Unavailable ZEE TIWARI Attending Clinician Unavailable Zee Tiwari PA-C Attending Clinician Veena RN, Yesi L Attending Clinician Unavailable ERNA ESCOBAR Attending Clinician Unavailable CHELY VILLATORO Attending Clinician Unavailable Chely Dukes Attending Clinician ROSARIO CARTAGENA Attending Clinician Unavailable BRANDON VILLAGRAN Admitting Clinician Unavailable Brandon Villagran MD Admitting Clinician ALMAS DOBBS Admitting Clinician Unavailable Almas Dobbs MD Admitting Clinician ROSARIO CARTAGENA Admitting Clinician Unavailable Payers Payer Name Policy Type Policy Number Effective Date Expiration Date [facility] [id number] 2018 CHOICE MEDICAID 00:00:00 Problems Condition Condition Condition Status Onset Resolution Last Treating Co mments Source Name Details Category Date Date Treatment Clinician Date Toxic Toxic Disease Active Univers metabolic metabolic 5-15 ity of encephalop encephalop [place] at[place] athy 00 Medical Branch Confusion Confusion Disease Active Uni vers 5-12 ity of 00:00: [place] [address] Medical Branch Abdominal Abdominal Disease Active Uni vers pain, pain, 5-03 ity of unspecifie unspecifie 00:[place] d d 00 Medical abdominal abdominal Bran ch location location ASCUS with ASCUS with Disease Active 2020-11 U nivers positive positive 2-30 ity of high risk high risk 00:00: [place] yanez HPV HPV 00 Medical cervical cervical Branch Diabetic Diabetic Disease Active Unive rs ketoacidos ketoacidos 4-10 it y of is without is without 00:00: [place] coma coma 00 Medical associated associated Br anch with type with type 1 diabetes 1 diabetes mellitus mellitus Nausea and Nausea and Disease Active U nivers vomiting vomiting 4-10 ity of 00:00: [place] [address] Medical Branch Metabolic Metabolic Disease Active Uni vers disorder disorder 6-30 ity of 00:00: [place] [address] Medical Branch Alcoholic Alcoholic Disease Active Uni vers ketoacidos ketoacidos 5-11 it y of is is 00:00: [place] 00 Medical Branch DKA DKA Disease Active Univers (diabetic (diabetic 5-07 ity of ketoacidos ketoacidos 00:[place]: [place] es[place] es) 00 Medical Branch Vomiting Vomiting Disease Active Unive rs 3-14 ity of 00:00: [place] 00 Medical Branch Dehydratio Dehydratio Disease Active U severiano n n 3-14 ity of 00:00: [place] 00 Medical Branch Pain in Pain in Disease Active 2015-11 Univers joint, joint, 2-06 ity of shoulder shoulder 00:00: [place] region region 00 Medical Branch Convulsion Convulsion Disease Active 2015-11 U luisers s s 2-05 ity of 00:00: [place] [facility] Branch Seizures Seizures Disease Active 2015-11 Unive rs 2-04 ity of 00:00: [place] 00 [facility] Branch Diabetic Diabetic Disease Active Unive rs ketoacidos ketoacidos 7-15 it y of is is 00:00: [place] Medical [facility] Surveillan Surveillan Disease Active U nivers ce of ce of 2-26 ity of previously [place] 00:[place] prescribed prescribed 00 Me dical contracept contracept Br anch jeff method jeff method Breast Breast Disease Active Univers pain pain 2-26 ity of 00:00: [place] 00 Medical Branch Elevated Elevated Disease Active Unive rs BP BP 2-26 ity of 00:00: [place] 00 Medical Branch Abnormal Abnormal Disease Active 2014-11 Unive rs thyroid thyroid 2-21 ity of function function 00:00: [place] test test Medical Branch Elevated Elevated Disease Active 2014-11 Unive rs liver liver 2-21 ity of enzymes enzymes 00:00: [place] 00 Medical Branch Hyperglyce Hyperglyce Disease Active 2014-11 U nivers jian jian 1-14 ity of 00:00: [place] 00 Medical Branch Complicate Complicate Disease Active U luisers d UTI d UTI 7-17 ity of (urinary (urinary 00:00: [place] tract tract 00 Medical infection) infection) Br anch Other and Other and Disease Active Uni vers unspecifie unspecifie 2-15 it y of d ovarian d ovarian 00:00[place] cyst cyst 00 Medical Branch Dysmenorrh Dysmenorrh Disease Active U nivers ea ea 2-15 ity of 00:00: [place] 00 Medical Branch Type 1 Type 1 Disease Active Overview: Univer s diabetes diabetes 07-21 Formattin ity of mellitus mellitus 00:00: g of this [place] as 00 note Medical might be Branch different from the original. ICD10 Diagnosis Term [employer] Utility Allergies, Adverse Reactions, Alerts Allergy Allergy Status Severity Reaction(s) Onset Inactive Treating Comm ents Source Name Type Date Date Clinician Penicill Propensi Active Unknown - Uni vers ins ty to See comments 07-21 ity of adverse 00:00: [place] reaction 00 Medical s Branch PENICILL Drug Active Unknown-Cmnt Un aravind INS Class 07-21 ity of 00:00: [place] 00 Medical Branch Social History Social Habit Start Date Stop Date Quantity Comments Source History SDOH Social Unive rsity of Connections [facility] Med ical Together Branch History SDOH Social Unive rsity of Connections [facility] Medical Branch History SDOH Social Unive rsity of Connections [place] [facility] Membership Branch History SDOH Social Unive rsity of Connections [place] [facility] Meetings Branch History of tobacco Cigarette Smoker University of use [facility] Branch Exposure to 2023-03-20 2023-03-30 Not sure University of SARS-CoV-2 (event) 00:00:00 17:18:00 [facility] Branch Alcohol intake 2023-03-30 2023-03-30 Current drinker Unive rsity of 00:00:00 00:00:00 of alcohol [place] Medical (finding) Branch History SDOH Social 2023-03-22 2023-03-22 5 Unive rsity of Connections Phone 00:00:00 00:00:00 [place] M edical Branch History SDOH Social 2023-03-22 2023-03-22 8 Unive rsity of Connections Living 00:00:00 00:00:00 [place] [facility] Branch History SDOH 2023-03-22 2023-03-22 3 University o f Physical Activity 00:00:00 00:00:00 [place] M edical DPW Branch History SDOH 2023-03-22 2023-03-22 1 University o f Physical Activity 00:00:00 00:00:00 [place] M edical MPS Branch History SDOH 2023-03-22 2023-03-22 5 University o f Financial 00:00:00 00:00:00 [place] [facility] Branch History SDOH Food 2023-03-22 2023-03-22 1 Univers ity of Worry 00:00:00 00:00:00 [place] [facility] Branch History SDOH Food 2023-03-22 2023-03-22 1 Univers ity of Scarcity 00:00:00 00:00:00 [place] [facility] History SDOH 2023-03-22 2023-03-22 2 University o f Transport Med 00:00:00 00:00:00 [place] Medic al Branch History SDOH 2023-03-22 2023-03-22 2 University o f Transport Non-Med 00:00:00 00:00:00 [place] M edical Branch History SDOH 2023-03-22 2023-03-22 2 University o f Housing Unable to 00:00:00 00:00:00 [place] M edical Pay Branch History SDOH 2023-03-22 2023-03-22 1 University o f Housing Places 00:00:00 00:00:00 [facility] ban Lived Branch History SDOH 2023-03-22 2023-03-22 2 University o f Housing Homeless 00:00:00 00:00:00 [facility] dical Last Year Branch Tobacco use and 2023-03-21 2023-03-21 Smokeless Universit y of exposure 00:00:00 00:00:00 tobacco non-user [facility] dical Branch Tobacco Comment 2023-03-21 2023-03-21 Quit 9 months Univer sity of 00:00:00 00:00:00 ago [facility] Cigarettes smoked 2022-06-02 2022-06-02 Univers ity of current (pack per 00:00:00 00:00:00 [facility] edical day) - Reported Branch Cigarette 2022-06-02 2022-06-02 University of pack-years 00:00:00 00:00:00 [facility] Sex [birth year] Universit y of 00:00:00 00:00:00 [facility] Smoking Status Start Date Stop Date Source Ex-smoker 2023-03-21 00:00:00 2023-03-21 00:00:00 Universi ty of [facility] Smokes tobacco daily 2022-06-02 00:00:00 Univers ity of [facility] Medications Ordered Filled Start Stop Current Ordering Indication Dosage Frequency Signature Comments Components Source Medication Medication Date Date Medication? Clinician (SIG) Name Name foLIC acid Yes 5mg IV Univers (FOLATE) 5 5-16 Piggyback, ity of mg in NaCl 14:00: DAILY, [place] 0.9% (NS) 00 First dose Medi ban piggyback on [facility] 04/03/23 at 0900, Until Discontinu ed, 50 mL multivitami Yes 15mL 15 mL, Univ ers n oral 5-16 Oral, ity of solution 15 14:00: DAILY, [place] mL 00 First dose Medical on [facility] 04/03/23 at 0900, Until Discontinu ed, Routine thiamine 2022- Yes 100mg IV Univers (VITAMIN 5-16 -17 Piggyback, ity of B1) 100 mg 14:00: 13:59 DAILY, 1 [place] in NaCl 00 :00 dose, Medical 0.9% (NS) First dose Bran ch piggyback on [facility] 04/03/23 at 0900, 50 mL melatonin Yes 9mg 9 mg, Univers (MELATIN) 5-16 Oral, QHS, ity of tablet 9 mg 02:00: First dose [place] 00 (after Medical last Branch modificati on) on [facility] 04/02/23 at 2100, Until Discontinu ed, Routine multivitami Yes [id number] 15mL Take 15 mL Univers n oral 5-16 by mouth ity of solution 00:00: in the [place] 00 morning. Medical Branch ALPRAZolam Yes 1mg Take 1 Unive rs 1 mg tablet 5-15 tablet by ity of 18:19: mouth in [place] 07 the Medical morning Branch and 1 tablet in the evening. insulin Yes inject Univers lispro, 5-15 under the ity of human, 100 18:19: skin [place] unit/mL 07 before Medical injection meals. Branch lisinopriL Yes 20mg Take 1 Unive rs 20 mg 5-15 tablet by ity of tablet 18:19: mouth in [place] 07 the Medical morning. Branch traZODONE Yes 50mg Take 5 mL Uni vers (DESYREL) 5-15 by mouth ity of 10 mg/mL 18:19: at [place] oral 07 bedtime. Medical suspension Branch ALPRAZolam Yes 1mg 1 mg, Univer s (XANAX) 5-15 Oral, ity of tablet 1 mg 15:30: [id number], [place] 00 Starting Medical on [facility] 04/02/23 at 1030, Until Discontinu ed, Routine, Anxiety ALPRAZolam 2022- No .5mg 0.5 mg, Uni vers (XANAX) 04-02- Oral, ity of tablet 0.5 07:15: 06:37 ONCE, 1 [place] as mg 00 :00 dose, On Medical [facility] 04/02/23 at 0215, Routine melatonin No 3mg 3 mg, Univer s (MELATIN) 04-0215 Oral, QHS, ity of tablet 3 mg 02:00: 15:29 First dose [place] 00 :22 on [facility] 04/01/23 at Branch 2100, Until Discontinu ed, Routine SERTraline Yes [id number] 50mg Take 1 Univers 50 mg 5-15 tablet by ity of tablet 00:00: mouth in [place] 00 the Medical morning. Branch lidocaine No 10mL 10 mL, Unive rs 1% 04-01 Subcutaneo ity of (XYLOCAINE) 17:45: 17:45 us, ONCE, [place] 10 mg/mL (1 00 :00 1 dose, On Me dical %) [facility] injection 04/01/23 at 10 mL 1245, DONALD ketorolac 2022- No 15mg 15 mg, Unive rs (TORADOL) 04-01 Slow IV ity of injection 16:45: 17:25 Push, [place] 15 mg 00 :00 ONCE, 1 Medical dose, On Branch [place] 04/01/23 at 1145, DONALD insulin Yes 3U 3 Units, Univer s lispro 04-01 Subcutaneo ity of (human) 13:00: us, TID [place] (HumaLOG 00 MEALS, Medical U-100) First dose Branch injection 3 on [facility] 04/01/23 at 0800, Until Discontinu ed, Routine gadobenate 2022- No [id number] .2mL/kg 8.98 mL Univers dimeglumine 04-01 (0.2 mL/kg i ty of (MULTIHANCE 07:45: 04:23 ?44.9 kg), [place] -15 mL) 00 :00 Intravenou Medica l injection s, ONCE, 1 Bran ch 8.98 mL dose, On [place] 04/01/23 at 0245, Routine iopamidol 2022- No [id number] 80mL 80 mL, Univers (ISOVUE 04-01 Intravenou ity o f 370-500 mL) 05:45: 05:45 s, ONCE, 1 [place] injection 00 :00 dose, On Medica l 80 mL [facility] 04/01/23 at 0045, Routine atorvastati Yes 10mg 10 mg, Univ ers n (LIPITOR) 14 Oral, QHS, it y of tablet 10 02:00: First dose [place] mg 00 on [facility] 03/31/23 at Branch 2100, Until Discontinu ed, Routine LORazepam 2022- No 1mg 1 mg, Univer s (ATIVAN) 03-31-15 Oral, PRN ity o f tablet 1 mg 17:28: 15:29 - SEE [place] s 32 :41 [facility] [place] Starting on [place] 03/31/23 at 1228, Until [facility] 04/02/23 at 1029, Routine, Anxiety, for MRI lisinopriL Yes 20mg 20 mg, Unive rs (PRINIVIL,Z 5-13 Oral, ity of ESTRIL) 14:00: DAILY, [place] tablet 20 00 First dose Medi ban mg on [facility] 03/31/23 at 0900, Until Discontinu ed, Routine pantoprazol Yes 40mg 40 mg, Univ ers e 5-13 Oral, ity of (PROTONIX) 14:00: DAILY, [place] EC tablet 00 First dose Medi ban 40 mg on [facility] 03/31/23 at 0900, Until Discontinu ed, Routine Sliding 0 Yes Subcutaneo Univ ers Scale 5-13 us, TID ity of Insulin - 13:00: MEALS+HS, [place] as Lispro 00 First dose Medical (HumaLOG) on Sat Branch 03/31/23 at 0800, Until Discontinu ed, Routine insulin Yes 8U 8 Units, Univer s glargine 03-31 Subcutaneo ity o f (LANTUS 13:00: us, BID, [place] U-100) 00 First dose Medical injection 8 on Sat Branch Units 03/31/23 at 0800, Until Discontinu ed, Routine carvediloL Yes 6.25mg 6.25 mg, U nivers (COREG) 03-31 Oral, BID ity of tablet 6.25 13:00: MEALS, [place] mg 00 First dose Medical on Sat Branch 03/31/23 at 0800, Until Discontinu ed, Routine heparin Yes 5000U 5,000 Univers (porcine) 03-31 Units, ity of injection 13:00: Subcutaneo [place] 5,000 Units 00 us, Q12H, Med ical First dose Branch on 03/31/23 at 0800, Until Discontinu ed, Routine ALPRAZolam 2022- No .5mg 0.5 mg, Uni vers (XANAX) 03-31 Oral, ity of tablet 0.5 10:30: 09:47 ONCE, 1 [place] as mg 00 :00 dose, On Medical Sat Branch 03/31/23 at 0530, Routine magnesium 0 202- No 4g 4 g, IV Univ ers sulfate in 03-31 Piggyback, it y of water 4 06:30: 08:35 at 25 [place] gram/50 mL 00 :00 mL/hr Medical (8 %) IV Administer Branc h Piggyback 4 over 120 g Minutes, ONCE, 1 dose, On 03/31/23 at 0130, Routine metoclopram 0 Yes 10mg 10 mg, Univ ers jarrod HCl 03-31 Slow IV ity of (REGLAN) 05:35: Push, [place] injection 21 Q6HPRN, Medical 10 mg Starting Branch on 03/31/23 at 0035, Until Discontinu ed, Routine, Nausea and Vomiting (N/V) HYDROcodone Yes 1{tbl} 1 tablet, Univers -acetaminop 5-13 Oral, ity of hen (NORCO 05:10: Q6HPRN, [place] 5) 5-325 mg 13 Starting Medi ban tablet 1 on [place] Branch tablet 03/31/23 at 0010, Until Discontinu ed, Routine, Pain (scale 7-10) traZODone 2022-0 Yes 50mg 50 mg, Univer s (DESYREL) 5-13 Oral, QHS, ity of tablet 50 05:00: First dose [place] mg 00 on [place] [facility] 03/31/23 at Branch 0000, Until Discontinu ed, Routine NaCl 0.9% 2022-0 2022- No 1000mL at 125 Uni vers (NS) IV 03-31 05-15 mL/hr, IV ity of infusion 05:00: 13:41 Infusion, [place] 1,000 mL 00 :14 CONTINUOUS Medic al , Starting Branch on 03/31/23 at 0000, Until 04/02/23 at 0841, Routine glucagon 0 Yes 1mg 1 mg, Univers (GLUCAGEN 03-31 Intramuscu ity of DIAGNOSTIC 04:56: lar, PRN, [place] KIT) 15 Starting Medical injection 1 on Sun Branch mg 03/30/23 at 2356, Until Discontinu ed, DONALD, Blood Glucose < or = 70 mg/dL and patient is NPO, unable to swallow or has mental changes. dextrose 50 2022-0 Yes 25mL 25 mL, Univ ers % in water 03-31 Slow IV ity of (D50W) 04:56: Push, PRN, [place] injection 15 Starting Medica l 25 mL on Sun Branch 03/30/23 at 2356, Until Discontinu ed, DONALD, Blood Glucose < or = 70 mg/dL and patient is NPO, unable to swallow or has mental status changes. acetaminoph 0 Yes 650mg 650 mg, Un aravind en 03-31 Oral, ity of (TYLENOL) 04:49: Q6HPRN, [place] tablet 650 13 Starting Medic al mg on Sun Branch 03/30/23 at 2349, Until Discontinu ed, Routine, Pain (scale 4-6) docusate 2022-0 Yes 100mg 100 mg, Unive rs (COLACE) 13 Oral, ity of capsule 100 04:49: QDAILYPRN, [place] mg 13 Starting Medical on Fri Branch 03/30/23 at 2349, Until Discontinu ed, Routine, Constipati on NaCl 0.9% 2022- No 1000mL at 999 Uni vers (NS) bolus 03-31 05-13 mL/hr, ity of infusion 03:30: 08:00 1,000 mL, [place] as 1,000 mL 00 :00 IV Medical Infusion, [place] ONCE, 1 dose, On Sun03/30/23 at 2230, STAT lisinopriL 0 Yes 20mg Take 1 Unive rs 20 mg 5-06 tablet by ity of tablet 17:10: mouth in [place] [address] the Medical morning. Branch Sliding 0 Yes Subcutaneo Univ ers Scale 5-06 us, TID ity of Insulin - 17:00: MEALS+HS, [place] Lispro 00 First dose Medical (HumaLOG) on Sat Branch 03/24/23 at 1200, Until Discontinu ed, Routine ALPRAZolam 2022-0 Yes 1mg Take 1 Unive rs 1 mg tablet 5-06 tablet by ity of 15:10: mouth in [place] [address] the Medical morning Branch and 1 tablet in the evening. insulin 0 Yes inject Univers lispro, 5-06 under the ity of human, 100 15:10: skin [place] unit/mL 01 before Medical injection meals. Branch lisinopriL 2022-0 Yes 20mg Take 1 Unive rs 20 mg 5-06 tablet by ity of tablet 15:10: mouth in [place] [address] the Medical morning. Branch traZODONE 2022-0 Yes 50mg Take 5 mL Uni vers (DESYREL) 5-06 by mouth ity of 10 mg/mL 15:10: at [place] oral 01 bedtime. Medical suspension Branch ALPRAZolam 2022-0 Yes 1mg Take 1 Unive rs 1 mg tablet 5-06 tablet by ity of 15:10: mouth in [place] [address] the Medical morning Branch and 1 tablet in the evening. insulin 2022-0 Yes inject Univers lispro, 5-06 under the ity of human, 100 15:10: skin [place] unit/mL 01 before Medical injection meals. Branch traZODONE 2022-0 Yes 50mg Take 5 mL Uni vers (DESYREL) 5-06 by mouth ity of 10 mg/mL 15:10: at [place] oral 01 bedtime. Medical suspension Branch traZODone 2022- No 50mg Take 0.5 Uni vers 100 mg 03-24 05-04 tablets by ity of tablet 15:09: 00:00 mouth at [place] 59 :00 bedtime. Medical Branch carvediloL Yes 6.25mg 6.25 mg, U nivers (COREG) 06 Oral, BID ity of tablet 6.25 14:15: MEALS, [place] mg 00 First dose Medical on Sat Branch 03/24/23 at 0915, Until Discontinu ed, Routine insulin Yes 8U 8 Units, Univer s lispro 03-24 Subcutaneo ity of (human) 13:00: us, TID [place] (HumaLOG 00 MEALS, Medical U-100) First dose Branch injection 8 (after Units last modificati on) on 03/24/23 at 0800, Until Discontinu ed, Routine HYDROmorphO 2022- Yes .5mg 0.5 mg, Un aravind ne 03-24 05-08 Slow IV ity of (DILAUDID) 11:15: 11:14 Push, [place] injection 20 :20 Q6HPRN, Medical 0.5 mg Starting Branch on 03/24/23 at 0615, Until 03/26/23 at 0614, Routine, Pain (scale 7-10)
U se approved by (Faculty): ADC PROVIDER HYDROcodone Yes 1{tbl} 1 tablet, Univers -acetaminop 03-24 Oral, ity of hen (NORCO) 11:14: Q6HPRN, [place] 10-325 mg 36 Starting Medica l tablet 1 on Sat Branch tablet 03/24/23 at 0614, Until Discontinu ed, Routine, Pain (scale 4-6) insulin 2022-0 Yes 12U 12 Units, Unive rs glargine -06 Subcutaneo ity o f (LANTUS 01:00: us, BID, [place] U-100) 00 First dose Medical injection (after Branch 12 Units last modificati on) on Sun03/23/23 at 2000, Until Discontinu ed ketorolac 2023-0 Yes [id number] 10mg Take 1 Un aravind 10 mg 5-06 tablet by ity of tablet 00:00: mouth [place] 00 every 6 Medical (six) Branch hours as needed for Pain (scale 4-6) for up to 10 doses. traMADoL 50 2022-0 Yes [id number] 50mg Take 1 Univ ers mg tablet 5-06 tablet by ity o f 00:00: mouth [place] 00 every 6 Medical (six) Branch hours as needed for Pain (scale 7-10) or Pain (scale 4-6) for up to 10 doses. Indication s: acute pain ketorolac 2022-0 Yes [id number] 10mg Take 1 Un aravind 10 mg 5-06 tablet by ity of tablet 00:00: mouth [place] 00 every 6 Medical (six) Branch hours as needed for Pain (scale 4-6) for up to 10 doses. traMADoL 50 2022-0 Yes [id number] 50mg Take 1 Univ ers mg tablet 5-06 tablet by ity o f 00:00: mouth [place] 00 every 6 Medical (six) Branch hours as needed for Pain (scale 7-10) or Pain (scale 4-6) for up to 10 doses. Indication s: acute pain ketorolac 2022-0 Yes [id number] 10mg Take 1 Un aravind 10 mg 5-06 tablet by ity of tablet 00:00: mouth [place] 00 every 6 Medical (six) Branch hours as needed for Pain (scale 4-6) for up to 10 doses. traMADoL 50 2022-0 Yes [id number] 50mg Take 1 Univ ers mg tablet 5-06 tablet by ity o f 00:00: mouth [place] 00 every 6 Medical (six) Branch hours as needed for Pain (scale 7-10) or Pain (scale 4-6) for up to 10 doses. Indication s: acute pain carvediloL 2022-0 2022- Yes [id number] 6.25mg Take 1 Univers 6.25 mg 5-06 06-06 tablet by ity of tablet 00:00: 04:59 mouth in [place] 00 :00 the Medical morning Branch and 1 tablet in the evening. Take with meals. Do all this for 30 days. carvediloL 2022-0 2022- Yes [id number] 6.25mg Take 1 Univers 6.25 mg 5-06 06-06 tablet by ity of tablet 00:00: 04:59 mouth in [place] 00 :00 the Medical morning Branch and 1 tablet in the evening. Take with meals. Do all this for 30 days. carvediloL 2022- Yes [id number] 6.25mg Take 1 Univers 6.25 mg 03-24-06 tablet by ity of tablet 00:00: 04:59 mouth in [place] 00 :00 the Medical morning Branch and 1 tablet in the evening. Take with meals. Do all this for 30 days. sulfamethox 2022- No [id number] 1{tbl} Take 1 Univers azole-trime 03-24 05-15 tablet by it y of thoprim 00:00: 00:00 mouth in [place] (BACTRIM 00 :00 the Medical ) 800-160 morning Branc h mg per and 1 tablet tablet in the evening. Do all this for 7 days. sulfamethox 2022- Yes [id number] 1{tbl} Take 1 Univers azole-trime 03-24 05-14 tablet by it y of thoprim 00:00: 04:59 mouth in [place] (BACTRIM 00 :00 the Medical DS) 800-160 morning Branc h mg per and 1 tablet tablet in the evening. Do all this for 7 days. sulfamethox 2022- Yes [id number] 1{tbl} Take 1 Univers azole-trime - 05-14 tablet by it y of thoprim 00:00: 04:59 mouth in [place] (BACTRIM 00 :00 the Medical ) 800-160 morning Branc h mg per and 1 tablet tablet in the evening. Do all this for 7 days. ketorolac 2022- No 30mg 30 mg, Unive rs (TORADOL) 03-23 05-05 Slow IV ity of injection 18:00: 17:53 [place], [place] 30 mg 00 :00 ONCE, 1 Medical dose, On Branch Sun03/23/23 at 1300, Routine insulin 2022- No 4U 4 Units, Unive rs lispro 03-23 05-05 Subcutaneo ity of (human) 17:00: 22:06 us, TID [place] (HumaLOG 00 :13 MEALS, Medical U-100) First dose Branch injection 4 (after Units last modificati on) on Sun03/23/23 at 1200, Until Discontinu ed, Routine lisinopriL Yes 20mg 20 mg, Unive rs (PRINIVIL,Z 03-23 Oral, ity of ESTRIL) 16:45: DAILY, [place] tablet 20 00 First dose Medi ban mg on Sun Branch 03/23/23 at 1145, Until Discontinu ed, Routine labetaloL Yes 10mg 10 mg, Univer s (NORMODYNE) 03-23 Slow IV ity o f injection 16:40: Push, [place] 10 mg 41 Q4HPRN, Medical Starting Branch on Sun03/23/23 at 1140, Until Discontinu ed, Routine, SBP >180 or DBP >100 morpHINE (2 2022- No 4mg 4 mg, Slow Univers mg/mL) 03-2306 IV [place], ity of injection 4 00:42: 11:15 Q6HPRN, [place] mg 10 :30 Starting Medical on Sun Branch 03/22/23 at 1942, Until 03/24/23 at 0615, Routine, Pain (scale 7-10) cefTRIAXone 2022- Yes 1000mg 1,000 mg, Univers (ROCEPHIN) 03-2211 IV ity of 1,000 mg in 16:00: 15:59 Piggyback, [place] NaCl 0.9% 00 :00 Q24H ABX, Medic al (NS) 100 mL 7 doses, Bran ch MINI-BAG First dose (after last modificati on) on Sun03/22/23 at 1100, Last dose on Sun03/28/23 at 1100, Administer over 30 Minutes, 100 mL
Reas on for Anti-Infec tive: Documented Infection< br>Documen eddie Infection Site: Urine
D uration of Therapy: 7 days hydralAZINE Yes 10mg 10 mg, Univ ers (APRESOLINE 03-22 Slow IV ity o f ) injection 15:00: Push, [place] 10 mg 41 Q6HPRN, Medical Starting Branch on Sun03/22/23 at 1000, Until Discontinu ed, Routine, DBP=>10 0; SBP=>160, For SBP > 160 enoxaparin Yes 40mg 40 mg, Unive rs (LOVENOX) 03-22 Subcutaneo ity of injection 14:00: [place], [place]ILY, [place] 40 mg 00 First dose Medical on Agnieszka Branch 03/22/23 at 0900, Until Discontinu ed, Routine Sliding 2022- No Subcutaneo Uni vers Scale 03-22 05-06 us, TID ity of Insulin - 13:00: 14:03 MEALS+HS, [place] Lispro 00 :33 First dose Medical (HumaLOG) on Agnieszka Branch 03/22/23 at 0800, Until Discontinu ed, Routine insulin 2022- No 2U 2 Units, Unive rs lispro 03-22 Subcutaneo ity of (human) 13:00: 13:28 us, TID [place] (HumaLOG 00 :47 MEALS, Medical U-100) First dose Branch injection 2 on Agnieszka Units 03/22/23 at 0800, Until Discontinu ed, Routine dextrose Yes 250mL 250 mL, IV Un aravind 10% (D10W) 03-22 Infusion, ity of bolus 03:14: PRN - SEE [place] infusion 17 INSTRUCTIO Medic al 250 mL NS, Branch Administer over 60 Minutes, Other, If blood glucose is < or = 70 mg/dL and patient is unable to swallow or has mental status changes, Starting on Sun03/21/23 at 2214
If blood glucose is < or = 70 mg/dL and patient is unable to swallow or has mental status changes (Give glucagon order if patient needs fluid restrictio n): IF IV access available: Dextrose 10%. 1. 125 mL (? bag) of D10W IV infusion - equivalent to 12.5 g dextrose 2. Blood glucose - draw blood glucose 15 minutes after D10W Administra tion. 3. If blood glucose is < 80 mg/dL, repeat.
glucagon Yes 1mg 1 mg, Univers (GLUCAGEN 03-22 Intramuscu ity of DIAGNOSTIC 03:14: lar, PRN, [place] KIT) 11 Starting Medical injection 1 on Sun Branch 03/21/23 at 2214, Until Discontinu ed, DONALD, Blood Glucose < or = 70 mg/dL and patient is NPO, unable to swallow or has mental changes. atorvastati Yes 10mg 10 mg, Univ ers n (LIPITOR) 5-04 Oral, QHS, it y of tablet 10 02:00: First dose [place] mg 00 on Sun Medical 03/21/23 at Branch 2100, Until Discontinu ed, Routine Sliding 2022- No Subcutaneo Uni vers Scale 03-22 us, TID ity of Insulin - 02:00: 03:23 MEALS+HS, [place] Lispro 00 :12 First dose Medical (HumaLOG) on Sun Branch 03/21/23 at 2100, Until Discontinu ed, Routine hydralAZINE 2022- No 10mg 10 mg, Uni vers (APRESOLINE 03-22 Slow IV ity of ) injection 01:05: 15:00 [place], [place] 10 mg 30 :58 Q4HPRN, Medical Starting Branch on Sun03/21/23 at 2004, Until Agnieszka 03/22/23 at 1000, STAT, DBP=&g t;100; SBP=>180 OXcarbazepi Yes 450mg 450 mg, Un aravind ne 04 Oral, BID, ity of (TRILEPTAL) 01:00: First dose [place] tablet 450 00 on Sun Medical mg 03/21/23 at Branch 1999, Until Discontinu ed, Routine ALPRAZolam Yes 1mg 1 mg, Univer s (XANAX) 03-22 Oral, TID, ity of tablet 1 mg 01:00: First dose [place] 00 on Sun Medical 03/21/23 at Branch 1999, Until Discontinu ed, Routine insulin 2022- No 8U 8 Units, Unive rs glargine 03-2206 Subcutaneo ity of (LANTUS 01:00: 00:36 us, BID, [place] U-100) 00 :17 First dose Medical injection 8 on Sun Branch Units 03/21/23 at 2000, Until Discontinu ed NaCl 0.9% Yes 1000mL at 125 Univ ers (NS) IV 5-03 mL/hr, IV ity of infusion 23:30: Infusion, [place] 1,000 mL 00 CONTINUOUS Medic al , Starting Branch on Sun03/21/23 at 1830, Until Discontinu ed, Routine glucagon 0 Yes 1mg 1 mg, Univers (GLUCAGEN 03 Intramuscu ity of DIAGNOSTIC 23:27: lar, PRN, [place] KIT) 56 Starting Medical injection 1 on Sun Branch mg 03/21/23 at 1827, Until Discontinu ed, DONALD, Blood Glucose < or = 70 mg/dL and patient is NPO, unable to swallow or has mental changes. dextrose 50 2022-0 Yes 25mL 25 mL, Univ ers % in water 503 Slow IV ity of (D50W) 23:27: Push, PRN, [place] injection 56 Starting Medica l 25 mL on Sun Branch 03/21/23 at 1827, Until Discontinu ed, DONALD, Blood Glucose < or = 70 mg/dL and patient is NPO, unable to swallow or has mental status changes. ondansetron 0 Yes 4mg 4 mg, Slow Univers (ZOFRAN 03 IV [place], ity of (PF)) 23:27: Q6HPRN, [place] injection 4 50 Starting Medi ban mg on Sun Branch 03/21/23 at 1827, Until Discontinu ed, Routine, Nausea and Vomiting (N/V) morpHINE (2 2022- No 4mg 4 mg, Slow Univers mg/mL) 03-21 05-04 IV [place], ity of injection 4 23:27: 23:26 Q4HPRN, [place] mg 48 :48 Starting Medical on Sun Branch 03/21/23 at 1827, Until Agnies[place]ka 03/22/23 at 1826, Routine, Pain (scale 7-10) HYDROcodone 2022-0 2022- No 1{tbl} 1 tablet, Univers -acetaminop 03-21 05-05 Oral, ity of hen (NORCO 23:27: 23:26 Q6HPRN, [place] as 5) 5-325 mg 46 :46 Starting Medi ban tablet 1 on Sun Branch tablet 03/21/23 at 1827, Until Sun03/23/23 at 182, Routine, Pain (scale 4-6) acetaminoph Yes 650mg 650 mg, Un aravind en 03-21 Oral, ity of (TYLENOL) 23:27: Q6HPRN, [place] tablet 650 40 Starting Medic al mg on Sun03/21/23 at 1827, Until Discontinu ed, Routine, Pain (scale 1-3), Temp > 38 C ketorolac 2022- No 15mg 15 mg, Unive rs (TORADOL) 03-21 Slow IV ity of injection 21:30: 20:55 Push, [place] 15 mg 00 :00 ONCE, 1 Medical dose, On Branch Sun03/21/23 at 1630, Routine iopamidol 2022- No [id number] 79mL 79 mL, U nivers (ISOVUE 03-21 Intravenou ity o f 370-500 mL) 18:56: 19:00 s, ONCE, 1 [place] injection 00 :00 dose, On Medica l 79 mL Sun03/21/23 Branch at 1400, Routine cefTRIAXone 2022- No 1000mg 1,000 mg, Univers (ROCEPHIN) 03-21 IV ity of 1,000 mg in 18:30: 19:32 Piggyback, [place] NaCl 0.9% 00 :00 ONCE, 1 Medical (NS) 100 mL dose, On Bran ch MINI-BAG Sun03/21/23 at 1330, Administer over 30 Minutes, 100 mL
Reas on for Anti-Infec tive: Empiric Therapy for Suspected Infection< br>Empiric Therapy Site: Urine
D uration of therapy: 72 hours NaCl 0.9% 2022- No 30mL/kg at 999 Un aravind (NS) bolus 03-21 mL/hr, ity of infusion 17:30: 21:00 1,497 mL [place] 1,497 mL 00 :00 (30 mL/kg Medica l ?49.9 kg), Branch IV Piggyback, ONCE, 1 dose, On Sun03/21/23 at 1230, STAT insulin Yes [id number] TAKE Univer s aspart 3-11 ACCORDING ity of U-100 00:00: TO [facility] (NOVOLOG 00 SCALE AND Medica l FLEXPEN CARBOHYDRA Branch U-100 TE RATIO INSULIN) UP TO 20 100 unit/mL UNITS (3 mL) BEFORE injection EACH MEAL() insulin 2022-0 Yes [id number] TAKE Univer s aspart 3-11 ACCORDING ity of U-100 00:00: TO SLIDING [place] (NOVOLOG 00 SCALE AND Medica l FLEXPEN CARBOHYDRA Branch U-100 TE RATIO INSULIN) UP TO 20 100 unit/mL UNITS (3 mL) BEFORE injection EACH MEAL() insulin 2022-0 Yes [id number] TAKE Univer s aspart 3-11 ACCORDING ity of U-100 00:00: TO SLIDING [place] (NOVOLOG 00 SCALE AND Medica l FLEXPEN CARBOHYDRA Branch U-100 TE RATIO INSULIN) UP TO 20 100 unit/mL UNITS (3 mL) BEFORE injection EACH MEAL() insulin 2022-0 Yes [id number] TAKE Univer s aspart 3-11 ACCORDING ity of U-100 00:00: TO SLIDING [place] (NOVOLOG 00 SCALE AND Medica l FLEXPEN CARBOHYDRA Branch U-100 TE RATIO INSULIN) UP TO 20 100 unit/mL UNITS (3 mL) BEFORE injection EACH MEAL() Insulin Yes [id number] INJECT 8 Un aravind Glargine 2-07 UNITS ity of (LANTUS 00:00: UNDER THE [place] SOLOSTAR 00 SKIN 2 Medical U-100 (TWO) Branch INSULIN) TIMES 100 unit/mL DAILY. (3 mL) injection Insulin Yes [id number] INJECT 8 Un aravind Glargine 2-07 UNITS ity of (LANTUS 00:00: UNDER THE [place] SOLOSTAR 00 SKIN 2 Medical U-100 (TWO) Branch INSULIN) TIMES 100 unit/mL DAILY. (3 mL) injection Insulin Yes [id number] INJECT 8 Un aravind Glargine 2-07 UNITS ity of (LANTUS 00:00: UNDER THE [place] SOLOSTAR 00 SKIN 2 Medical U-100 (TWO) Branch INSULIN) TIMES 100 unit/mL DAILY. (3 mL) injection Insulin Yes [id number] INJECT 8 Un aravind Glargine 2-07 UNITS ity of (LANTUS 00:00: UNDER THE [place] SOLOSTAR 00 SKIN 2 Medical U-100 (TWO) Branch INSULIN) TIMES 100 unit/mL DAILY. (3 mL) injection Insulin 0 Yes [id number] INJECT 8 Un aravind Glargine 2-07 UNITS ity of (LANTUS 00:00: UNDER THE [place] SOLOSTKY 00 SKIN 2 Medical U-100 (TWO) Branch INSULIN) TIMES 100 unit/mL DAILY. (3 mL) injection Insulin Yes [id number] INJECT 8 Un aravind Glargine 2-07 UNITS ity of (LANTUS 00:00: UNDER THE [facility] [place] [facility] 00 SKIN 2 Medical U-100 (TWO) Branch INSULIN) TIMES 100 unit/mL DAILY. (3 mL) injection insulin 0 Yes [id number] TAKE Univer s aspart 2-03 ACCORDING ity of U-100 00:00: TO SLIDING [place] (NOVOLOG 00 SCALE AND Medica l FLEXPEN CARBOHYDRA Branch U-100 TE RATIO INSULIN) UP TO 20 100 unit/mL UNITS (3 mL) BEFORE injection EACH MEAL(DAY [id number]) insulin 0 Yes [id number] TAKE Univer s aspart 2-03 ACCORDING ity of U-100 00:00: TO SLIDING [place] (NOVOLOG 00 SCALE AND Medica l FLEXPEN CARBOHYDRA Branch U-100 TE RATIO INSULIN) UP TO 20 100 unit/mL UNITS (3 mL) BEFORE injection EACH MEAL(DAY [id number]) insulin 0 Yes [id number] TAKE Univer s aspart 2-03 ACCORDING ity of U-100 00:00: TO SLIDING [place] (NOVOLOG 00 SCALE AND Medica l FLEXPEN CARBOHYDRA Branch U-100 TE RATIO INSULIN) UP TO 20 100 unit/mL UNITS (3 mL) BEFORE injection EACH MEAL( [id number]) insulin 2022-0 Yes [id number] TAKE Univer s aspart 2-03 ACCORDING ity of U-100 00:00: TO SLIDING [place] (NOVOLOG 00 SCALE AND Medica l FLEXPEN CARBOHYDRA Branch U-100 TE RATIO INSULIN) UP TO 20 100 unit/mL UNITS (3 mL) BEFORE injection EACH MEAL(DAY [id number]) insulin 2022-0 2022- No [id number] TAKE Unive rs aspart 2-03 - ACCORDING ity of U-100 00:00: 00:00 TO SLIDING [place] (NOVOLOG 00 :00 SCALE AND Medica l FLEXPEN CARBOHYDRA Branch U-100 TE RATIO INSULIN) UP TO 20 100 unit/mL UNITS (3 mL) BEFORE injection EACH MEAL(DAY [id number]) Insulin 2022- No [id number] U nivers Glargine 2-03 02-07 UNITS ity of (LANTUS 00:00: 00:00 UNDER THE [place] SOLOSTAR 00 :00 SKIN 2 Medical U-100 (TWO) Branch INSULIN) TIMES 100 unit/mL DAILY. (3 mL) ( DAY injection SUPPLY) Insulin 2022- No [id number] U nivers Glargine 2-03 02-07 UNITS ity of (LANTUS 00:00: 00:00 UNDER THE [place] SOLOSTAR 00 :00 SKIN 2 Medical U-100 (TWO) Branch INSULIN) TIMES 100 unit/mL DAILY. (3 mL) ( DAY injection SUPPLY) Insulin 2022- No [id number] U nivers Glargine 2-03 02-07 UNITS ity of (LANTUS 00:00: 00:00 UNDER THE [place] SOLOSTAR 00 :00 SKIN 2 Medical U-100 (TWO) Branch INSULIN) TIMES 100 unit/mL DAILY. (3 mL) ( DAY injection SUPPLY) insulin Yes [id number] TAKE Univer s aspart -14 ACCORDING ity of U-100 00:00: TO SLIDING [place] (NOVOLOG 00 SCALE AND Medica l FLEXPEN CARBOHYDRA Branch U-100 TE RATIO INSULIN) UP TO 20 100 unit/mL UNITS (3 mL) BEFORE injection EACH MEAL(DAY [id number]) insulin 2022- No [id number] TAKE Unive rs aspart 12-02 ACCORDING ity of U-100 00:00: 00:00 TO SLIDING [place] (NOVOLOG 00 :00 SCALE AND Medica l FLEXPEN CARBOHYDRA Branch U-100 TE RATIO INSULIN) UP TO 20 100 unit/mL UNITS (3 mL) BEFORE injection EACH MEAL(DAY [id number]) insulin 2022- No [id number] TAKE Unive rs aspart 12-02 ACCORDING ity of U-100 00:00: 00:00 TO SLIDING [place] (NOVOLOG 00 :00 SCALE AND Medica l FLEXPEN CARBOHYDRA Branch U-100 TE RATIO INSULIN) UP TO 20 100 unit/mL UNITS (3 mL) BEFORE injection EACH MEAL(DAY [id number]) insulin 2022- No [id number] [facility]-24 ACCORDING ity of U-100 00:00: 00:00 TO SLIDING [place] (NOVOLOG 00 :00 SCALE AND Medica l FLEXPEN CARBOHYDRA Branch U-100 TE RATIO INSULIN) UP TO 20 100 unit/mL UNITS (3 mL) BEFORE injection EACH MEAL() blood sugar Yes [id number] USE TO [facility] diagnostic 8-17 TEST BLOOD ity of (FREESTYLE 00:00: GLUCOSE 6 [place] LITE 00 TIMES Medical STRIPS) DAILY Branch strip blood sugar Yes [id number] USE TO [facility] diagnostic 8-17 TEST BLOOD ity of (FREESTYLE 00:00: GLUCOSE 6 [place] LITE 00 TIMES Medical STRIPS) DAILY Branch strip blood sugar Yes [id number] USE TO [facility] diagnostic 8-17 TEST BLOOD ity of (FREESTYLE 00:00: GLUCOSE 6 [place] LITE 00 TIMES Medical STRIPS) DAILY Branch strip blood sugar Yes [id number] USE TO [facility] diagnostic 8-17 TEST BLOOD ity of (FREESTYLE 00:00: GLUCOSE 6 [place] LITE 00 TIMES Medical STRIPS) DAILY Branch strip blood sugar Yes [id number] USE TO [facility] diagnostic 8-17 TEST BLOOD ity of (FREESTYLE 00:00: GLUCOSE 6 [place] LITE 00 TIMES Medical STRIPS) DAILY Branch strip blood sugar Yes [id number] USE TO [facility] diagnostic 8-17 TEST BLOOD ity of (FREESTYLE 00:00: GLUCOSE 6 [place] LITE 00 TIMES Medical STRIPS) DAILY Branch strip blood sugar Yes [id number] USE TO [facility] diagnostic 8-17 TEST BLOOD ity of (FREESTYLE 00:00: GLUCOSE 6 [place] LITE 00 TIMES Medical STRIPS) DAILY Branch strip blood sugar Yes [id number] USE TO [facility] diagnostic 8-17 TEST BLOOD ity of (FREESTYLE 00:00: GLUCOSE 6 [place] LITE 00 TIMES Medical STRIPS) DAILY Branch strip blood sugar Yes [id number] USE TO [facility] diagnostic 8-17 TEST BLOOD ity of (FREESTYLE 00:00: GLUCOSE 6 [place] LITE 00 TIMES Medical STRIPS) DAILY Branch strip blood sugar Yes [id number] USE TO Univers diagnostic 8-17 TEST BLOOD ity of (FREESTYLE 00:00: GLUCOSE 6 [place] LITE 00 TIMES Medical STRIPS) DAILY Branch strip OXcarbazepi 2022-0 Yes [id number] TAKE 3 Univers ne 150 mg 8-12 TABLETS ity of tablet 00:00: (450MG) IN [place] [address] THE [facility] MORNING Branch AND 3 (450MG) TABLETS IN THE EVENING. OXcarbazepi 2022-0 Yes [id number] TAKE 3 Univers ne 150 mg 8-12 TABLETS ity of tablet 00:00: (450MG) IN [place] [address] THE [facility] MORNING Branch AND 3 (450MG) TABLETS IN THE EVENING. OXcarbazepi 2022-0 Yes [id number] TAKE 3 Univers ne 150 mg 8-12 TABLETS ity of tablet 00:00: (450MG) IN [place] [address] THE [facility] MORNING Branch AND 3 (450MG) TABLETS IN THE EVENING. OXcarbazepi 2022-0 Yes [id number] TAKE 3 Univers ne 150 mg 8-12 TABLETS ity of tablet 00:00: (450MG) IN [place] [address] THE [facility] AND 3 (450MG) TABLETS IN THE EVENING. OXcarbazepi 2022-0 Yes [id number] TAKE 3 Univers ne 150 mg 8-12 TABLETS ity of tablet 00:00: (450MG) IN [place] [address] THE [facility] AND 3 (450MG) TABLETS IN THE EVENING. OXcarbazepi 2022-0 Yes [id number] TAKE 3 Univers ne 150 mg 8-12 TABLETS ity of tablet 00:00: (450MG) IN [place] [address] THE [facility] AND 3 (450MG) TABLETS IN THE EVENING. OXcarbazepi 2022-0 Yes [id number] TAKE 3 Univers ne 150 mg 8-12 TABLETS ity of tablet 00:00: (450MG) IN [place] [address] THE [facility] MORNING [place] AND 3 (450MG) TABLETS IN THE EVENING. OXcarbazepi 2022-0 Yes [id number] TAKE 3 Univers ne 150 mg 8-12 TABLETS ity of tablet 00:00: (450MG) IN [address] AND 3 (450MG) TABLETS IN THE EVENING. OXcarbazepi 2022-0 Yes [id number] TAKE 3 Univers ne 150 mg 8-12 TABLETS ity of tablet 00:00: (450MG) IN [place] 00 THE Medical MORNING Branch AND 3 (450MG) TABLETS IN THE EVENING. OXcarbazepi Yes [id number] TAKE 3 Univers ne 150 mg 8-12 TABLETS ity of tablet 00:00: (450MG) IN [place] 00 THE Medical MORNING Branch AND 3 (450MG) TABLETS IN THE EVENING. OXcarbazepi Yes [id number] TAKE 3 Univers ne 150 mg 8-12 TABLETS ity of tablet 00:00: (450MG) IN [place] 00 THE Medical MORNING Branch AND 3 (450MG) TABLETS IN THE EVENING. OXcarbazepi 2021- No [id number] TAKE 3 Univers ne 150 mg 7-28 08-12 TABLETS ity of tablet 00:00: 00:00 (450MG) IN [facility] 00 :00 THE Medical MORNING Branch AND 3 (450MG) TABLETS IN THE EVENING. insulin 2021- No [id number] TAKE Unive rs aspart 7-15 05 ACCORDING ity of U-100 00:00: 00:00 TO SLIDING [place] (NOVOLOG 00 :00 SCALE AND Medica l FLEXPEN CARBOHYDRA Branch U-100 TE RATIO. INSULIN) Max daily 100 unit/mL dose 30 (3 mL) units injection LANTUS Yes [id number] INJECT 7 Uni vers SOLOSTAR 7-04 UNITS ity of U-100 00:00: UNDER THE [place] INSULIN 100 00 SKIN 2 Medica l unit/mL (3 (TWO) Branch mL) TIMES injection DAILY. (107 DAY SUPPLY) ATORVASTATI Yes [id number] TAKE 1 Univers N 10 mg 7-04 TABLET BY ity of tablet 00:00: MOUTH [place] 00 EVERYDAY Medical AT BEDTIME Branch LANTUS 0 Yes [id number] INJECT 7 Uni vers SOLOSTAR 7-04 UNITS ity of U-100 00:00: UNDER THE [place] INSULIN 100 00 SKIN 2 Medica l unit/mL (3 (TWO) Branch mL) TIMES injection DAILY. (107 DAY SUPPLY) ATORVASTATI 0 Yes [id number] TAKE 1 Univers N 10 mg 7-04 TABLET BY ity of tablet 00:00: MOUTH [place] 00 EVERYDAY Medical AT BEDTIME Branch ATORVASTATI 0 Yes [id number] TAKE 1 Univers N 10 mg 7-04 TABLET BY ity of tablet 00:00: MOUTH [place] 00 EVERYDAY Medical AT BEDTIME [facility] Yes [id number] TAKE 1 Univers N 10 mg 7-04 TABLET BY ity of tablet 00:00: MOUTH [place] 00 EVERYDAY Medical AT BEDTIME [facility] 0 Yes [id number] TAKE 1 Univers N 10 mg 7-04 TABLET BY ity of tablet 00:00: MOUTH [place] 00 EVERYDAY Medical AT BEDTIME [facility] Yes [id number] TAKE 1 Univers N 10 mg 7-04 TABLET BY ity of tablet 00:00: MOUTH [place] 00 EVERYDAY Medical AT BEDTIME [facility] Yes [id number] TAKE 1 Univers N 10 mg 7-04 TABLET BY ity of tablet 00:00: MOUTH [place] 00 EVERYDAY Medical AT BEDTIME [facility] Yes [id number] TAKE 1 Univers N 10 mg 7-04 TABLET BY ity of tablet 00:00: MOUTH [place] 00 EVERYDAY Medical AT BEDTIME [facility] Yes [id number] TAKE 1 Univers N 10 mg 7-04 TABLET BY ity of tablet 00:00: MOUTH [place] 00 EVERYDAY Medical AT BEDTIME [facility] Yes [id number] TAKE 1 Univers N 10 mg 7-04 TABLET BY ity of tablet 00:00: MOUTH [place] 00 EVERYDAY Medical AT BEDTIME [facility] Yes [id number] TAKE 1 Univers N 10 mg 7-04 TABLET BY ity of tablet 00:00: MOUTH [place] [facility]- No [id number] INJECT 7 Un aravind SOLOSTAR 7- 02-03 UNITS ity of U-100 00:00: 00:00 UNDER THE [place] INSULIN 100 00 :00 SKIN 2 Medica l unit/mL (3 (TWO) Branch mL) TIMES injection DAILY. (107 DAY SUPPLY) LANTUS 2022- No [id number] INJECT 7 Un aravind SOLOSTAR 7-04 02-03 UNITS ity of U-100 00:00: 00:00 UNDER THE [place] INSULIN 100 00 :00 SKIN 2 Medica l unit/mL (3 (TWO) Branch mL) TIMES injection DAILY. (107 DAY SUPPLY) Insulin Yes [id number] USE Univ ers [place], 04-26 DIRECTED 5 ity o f Disposable, 00:00: TIMES A [place] (BD DAY Medical ULTRAFINE E10.649 Branch III MINI PEN) 31 gauge x 3/16" Ndle Insulin 2021-0 Yes [id number] USE Univ ers [place], 04-26 DIRECTED 5 ity o f Disposable, 00:00: TIMES A [place] (BD DAY Medical ULTRAFINE E10.649 Branch III MINI PEN) 31 gauge x 3/16" Ndle Insulin 2021-0 Yes [id number] USE Univ ers [place], 04-26 DIRECTED 5 ity o f Disposable, 00:00: TIMES A [place] (BD DAY Medical ULTRAFINE E10.649 Branch III MINI PEN) 31 gauge x 3/16" Ndle Insulin 0 Yes [id number] USE Univ ers [place], 04-26 DIRECTED 5 ity o f Disposable, 00:00: TIMES A [place] (BD DAY Medical ULTRAFINE E10.649 Branch III MINI PEN) 31 gauge x 3/16" Ndle Insulin 2021-0 Yes [id number] USE Univ ers [place], 04-26 DIRECTED 5 ity o f Disposable, 00:00: TIMES A [place] (BD DAY Medical ULTRAFINE E10.649 Branch III MINI PEN) 31 gauge x 3/16" Ndle Insulin 2021-0 Yes [id number] USE Univ ers [place], 04-26 DIRECTED 5 ity o f Disposable, 00:00: TIMES A [place] (BD DAY Medical ULTRAFINE E10.649 Branch III MINI PEN) 31 gauge x 3/16" Ndle Insulin 2021-0 Yes [id number] USE Univ ers [place], 04-26 DIRECTED 5 ity o f Disposable, 00:00: TIMES A [place] (BD DAY Medical ULTRAFINE E10.649 Branch III MINI PEN) 31 gauge x 3/16" Ndle Insulin 2021-0 Yes [id number] USE Univ ers [place], 04-26 DIRECTED 5 ity o f Disposable, 00:00: TIMES A [place] (BD DAY Medical ULTRAFINE E10.649 Branch III MINI PEN) 31 gauge x 3/16" Ndle Insulin 2021-0 Yes [id number] USE Univ ers [place], 04-26 DIRECTED 5 ity o f Disposable, 00:00: TIMES A [place] (BD DAY Medical ULTRAFINE E10.649 Branch III MINI PEN) 31 gauge x 3/16" Ndle Insulin 2021-0 Yes [id number] USE Univ ers [place], 04-26 DIRECTED 5 ity o f Disposable, 00:00: TIMES A [place] (BD 00 DAY Medical ULTRAFINE E10.649 Branch III MINI PEN) 31 gauge x 3/16" Ndle Insulin 2021-0 Yes [id number] USE Univ ers [place], 6 DIRECTED 5 ity o f Disposable, 00:00: TIMES A [place] (BD DAY Medical ULTRAFINE E10.649 Branch III MINI PEN) 31 gauge x 3/16" Ndle flash Yes [id number] 1{each} Apply 1 Un aravind glucose 3-22 Each to ity of sensor 00:00: skin every [place] (FREESTYLE 00 14 Medical MAN 2 (fourteen) Branch SENSOR) Kit days. Dx E10.9 Glucagon Yes [id number] 1mg Inject 1 Univers mg SolR 3-22 mg as ity of 00:00: directed 00 as needed Medical for Other Branch (Inject 1 mg when blood glucose is less than 50). flash Yes [id number] 1{each} Apply 1 Un aravind glucose 3-22 Each to ity of sensor 00:00: skin every (FREESTYLE 00 14 Medical MAN 2 (fourteen) Branch SENSOR) Kit days. Dx E10.9 Glucagon Yes [id number] 1mg Inject 1 Univers mg SolR 3-22 mg as ity of 00:00: directed [place] 00 as needed Medical for Other Branch (Inject 1 mg when blood glucose is less than 50). flash Yes [id number] 1{each} Apply 1 Un aravind glucose 3-22 Each to ity of sensor 00:00: skin every [place] (FREESTYLE 00 14 Medical MAN 2 (fourteen) Branch SENSOR) Kit days. Dx E10.9 Glucagon 1 2021-0 Yes [id number] 1mg Inject 1 Univers mg SolR 3-22 mg as ity of 00:00: directed 00 as needed Medical for Other Branch (Inject 1 mg when blood glucose is less than 50). flash 2021- Yes [id number] 1{each} Apply 1 Un aravind glucose 3-22 Each to ity of sensor 00:00: skin every [place] (FREESTYLE 00 14 Medical MAN 2 (fourteen) Branch SENSOR) Kit days. Dx E10.9 Glucagon 1 Yes [id number] 1mg Inject 1 Univers mg SolR 3-22 mg as ity of 00:00: directed [place] 00 as needed Medical for Other Branch (Inject 1 mg when blood glucose is less than 50). flash 2021- Yes [id number] 1{each} Apply 1 Un aravind glucose 3-22 Each to ity of sensor 00:00: skin every [place] (FREESTYLE 00 14 Medical MAN 2 (fourteen) Branch SENSOR) Kit days. Dx E10.9 Glucagon 1 2021- Yes [id number] 1mg Inject 1 Univers mg SolR 3-22 mg as ity of 00:00: directed [place] 00 as needed Medical for Other Branch (Inject 1 mg when blood glucose is less than 50). flash 2021- Yes [id number] 1{each} Apply 1 Un aravind glucose 3-22 Each to ity of sensor 00:00: skin every [place] (FREESTYLE 00 14 Medical MAN 2 (fourteen) Branch SENSOR) Kit days. Dx E10.9 Glucagon 1 Yes [id number] 1mg Inject 1 Univers mg SolR 3-22 mg as ity of 00:00: directed [place] 00 as needed Medical for Other Branch (Inject 1 mg when blood glucose is less than 50). flash 2021- Yes [id number] 1{each} Apply 1 Un aravind glucose 3-22 Each to ity of sensor 00:00: skin every [place] (FREESTYLE 00 14 Medical MAN 2 (fourteen) Branch SENSOR) Kit days. Dx E10.9 Glucagon 1 Yes [id number] 1mg Inject 1 Univers mg SolR 3-22 mg as ity of 00:00: directed [place] 00 as needed Medical for Other Branch (Inject 1 mg when blood glucose is less than 50). flash 2021- Yes [id number] 1{each} Apply 1 Un aravind glucose 3-22 Each to ity of sensor 00:00: skin every [place] (FREESTYLE 00 14 Medical MAN 2 (fourteen) Branch SENSOR) Kit days. Dx E10.9 Glucagon 1 2021-0 Yes [id number] 1mg Inject 1 Univers mg SolR 3-22 mg as ity of 00:00: directed [place] 00 as needed Medical for Other Branch (Inject 1 mg when blood glucose is less than 50). flash Yes [id number] 1{each} Apply 1 Un aravind glucose 3-22 Each to ity of sensor 00:00: skin every [place] (FREESTYLE 00 14 Medical MAN 2 (fourteen) Branch SENSOR) Kit days. Dx E10.9 Glucagon 1 Yes [id number] 1mg Inject 1 Univers mg SolR 3-22 mg as ity of 00:00: directed [place] 00 as needed Medical for Other Branch (Inject 1 mg when blood glucose is less than 50). flash Yes [id number] 1{each} Apply 1 Un aravind glucose 3-22 Each to ity of sensor 00:00: skin every [place] (FREESTYLE 00 14 Medical MAN 2 (fourteen) Branch SENSOR) Kit days. Dx E10.9 Glucagon 1 Yes [id number] 1mg Inject 1 Univers mg SolR 3-22 mg as ity of 00:00: directed [place] 00 as needed Medical for Other Branch (Inject 1 mg when blood glucose is less than 50). flash Yes [id number] 1{each} Apply 1 Un aravind glucose 3-22 Each to ity of sensor 00:00: skin every [place] (FREESTYLE 00 14 Medical MAN 2 (fourteen) Branch SENSOR) Kit days. Dx E10.9 Glucagon 1 Yes [id number] 1mg Inject 1 Univers mg SolR 3-22 mg as ity of 00:00: directed [place] 00 as needed Medical for Other Branch (Inject 1 mg when blood glucose is less than 50). FREESTYLE 2020-11 No [id number] USE U nivers TEST strip 01-11 DIRECTED ity of 00:00: 00:00 SIX TIMES [place] 00 :00 DAILY Medical E10.9 Branch ALPRAZolam 2020-11 Yes 1mg Take 1 mg Un aravind 1 mg tablet 1-19 by mouth 3 it y of 11:44: (three) [place] 29 times Medical daily. Branch ALPRAZolam 2020-11 Yes 1mg Take 1 mg Un aravind 1 mg tablet 1-19 by mouth 3 it y of 11:44: (three) [place] 29 times Medical daily. Branch ALPRAZolam 2020-11 Yes 1mg Take 1 mg Un aravind 1 mg tablet 1-19 by mouth 3 it y of 11:44: (three) [place] 29 times Medical daily. Branch ALPRAZolam 2020- Yes 1mg Take 1 mg Un aravind 1 mg tablet 1-19 by mouth 3 it y of 11:44: (three) [place] 29 times Medical daily. Branch ALPRAZolam 2020- Yes 1mg Take 1 mg Un aravind 1 mg tablet 1-19 by mouth 3 it y of 11:44: (three) [place] 29 times Medical daily. Branch ALPRAZolam 2020- Yes 1mg Take 1 mg Un aravind 1 mg tablet 1-19 by mouth 3 it y of 11:44: (three) [place] 29 times Medical daily. Branch ALPRAZolam 2020- Yes 1mg Take 1 mg Un aravind 1 mg tablet 1-19 by mouth 3 it y of 11:44: (three) [place] 29 times Medical daily. Branch ALPRAZolam 2020- Yes 1mg Take 1 mg Un aravind 1 mg tablet 1-19 by mouth 3 it y of 11:44: (three) [place] 29 times Medical daily. Branch Blood-Gluco Yes [id number] Use 6 U nivers se Meter 7-13 times ity of (FREESTYLE 00:00: [place]. [place] LITE METER) 00 E10. 64 Medic al Kit Branch lancets 0 Yes [id number] Use six Uni vers (FREESTYLE 7-13 times ity of LANCETS) 28 00:[place] gauge Misc 00 DX:E10.64 [facility] Branch Blood-Gluco 0 Yes [id number] Use 6 U nivers se Meter 7-13 times ity of (FREESTYLE 00:00: [place]. [place] LITE METER) 00 E10. 64 Medic al Kit Branch lancets 2020-0 Yes [id number] Use six Uni vers (FREESTYLE 7-13 times ity of LANCETS) 28 00:00[place] Misc 00 DX:E10.64 [facility] Branch Blood-Gluco 2020-0 Yes [id number] Use 6 U nivers se Meter 7-13 times ity of (FREESTYLE 00:00: [place]. [place] LITE METER) 00 E10. 64 Medic al Kit Branch lancets 2020-0 Yes [id number] Use six Uni vers (FREESTYLE 7-13 times ity of LANCETS) 28 00:00: [place] Misc 00 DX:E10.64 Medi ban Branch Blood-Gluco 2020-0 Yes [id number] Use 6 U nivers se Meter 7-13 times ity of (FREESTYLE 00:00: [place]. [place] LITE METER) 00 E10. 64 Medic al Kit Branch lancets 2020-0 Yes [id number] Use six Uni vers (FREESTYLE 7-13 times ity of LANCETS) 28 00:00: [place] gauge Misc 00 DX:E10.64 Medi ban Branch Blood-Gluco 2020-0 Yes [id number] Use 6 U nivers se Meter 7-13 times ity of (FREESTYLE 00:00: [place]. [place] LITE METER) 00 E10. 64 Medic al Kit Branch lancets 2020-0 Yes [id number] Use six Uni vers (FREESTYLE 7-13 times ity of LANCETS) 28 00:00: [place] gauge Misc 00 DX:E10.64 Medi ban Branch Blood-Gluco 2020-0 Yes [id number] Use 6 U nivers se Meter 7-13 times ity of (FREESTYLE 00:00: [place]. [place] LITE METER) 00 E10. 64 Medic al Kit Branch lancets 2020-0 Yes [id number] Use six Uni vers (FREESTYLE 7-13 times ity of LANCETS) 28 00:00: [place] gauge Misc 00 DX:E10.64 Medi ban Branch Blood-Gluco 2020-0 Yes [id number] Use 6 U nivers se Meter 7-13 times ity of (FREESTYLE 00:00: [place]. [place] LITE METER) 00 E10. 64 Medic al Kit Branch lancets 2020-0 Yes [id number] Use six Uni vers (FREESTYLE 7-13 times ity of LANCETS) 28 00:00: [place] gauge Misc 00 DX:E10.64 Medi ban Branch Blood-Gluco 2021-0 Yes [id number] Use 6 U nivers se Meter 7-13 times ity of (FREESTYLE 00:00: [place]. [place] LITE METER) 00 E10. 64 Medic al Kit Branch lancets 2020-0 Yes [id number] Use six Uni vers (FREESTYLE 7-13 times ity of LANCETS) 28 00:00: [place] gauge Misc 00 DX:E10.64 [facility] Branch Blood-Gluco 2020-0 Yes [id number] Use 6 U nivers se Meter 7-13 times ity of (FREESTYLE 00:00: daily. [place] LITE METER) 00 E10. 64 Medic al Kit Branch lancets 2020-0 Yes [id number] Use six Uni vers (FREESTYLE 7-13 times ity of LANCETS) 28 00:00: [place] gauge Misc 00 DX:E10.64 [facility] Branch Blood-Gluco 2020-0 Yes [id number] Use 6 U nivers se Meter 7-13 times ity of (FREESTYLE 00:00: daily. [place] LITE METER) 00 E10. 64 Medic al Kit Branch lancets 2020-0 Yes [id number] Use six Uni vers (FREESTYLE 7-13 times ity of LANCETS) 28 00:00: [place] gauge Misc 00 DX:E10.64 [facility] Branch Blood-Gluco 2020-0 Yes [id number] Use 6 U nivers se Meter 7-13 times ity of (FREESTYLE 00:00: daily. [place] LITE METER) 00 E10. 64 Medic al Kit Branch lancets 2020-0 Yes [id number] Use six Uni vers (FREESTYLE 7-13 times ity of LANCETS) 28 00:00: [place] gauge Misc 00 DX:E10.64 [facility] Branch ONDANSETRON 2020-0 Yes [id number] TAKE 1 Univers 8 mg tablet 2-02 TABLET BY ity of 00:00: MOUTH [place] 00 EVERY 12 Medical HOURS Branch ONDANSETRON 2020-0 Yes [id number] TAKE 1 Univers 8 mg tablet 2-02 TABLET BY ity of 00:00: MOUTH [place] 00 EVERY 12 Medical HOURS Branch ONDANSETRON 2020-0 Yes [id number] TAKE 1 Univers 8 mg tablet 2-02 TABLET BY ity of 00:00: MOUTH [place] 00 EVERY 12 Medical HOURS Branch ONDANSETRON 2020-0 Yes [id number] TAKE 1 Univers 8 mg tablet 2-02 TABLET BY ity of 00:00: MOUTH [place] 00 EVERY 12 Medical HOURS Branch ONDANSETRON 2020-0 Yes [id number] TAKE 1 Univers 8 mg tablet 2-02 TABLET BY ity of 00:00: MOUTH [place] EVERY 12 Medical HOURS Branch ONDANSETRON 2020-0 Yes [id number] TAKE 1 Univers 8 mg tablet 2-02 TABLET BY ity of 00:00: MOUTH [place] EVERY 12 Medical HOURS Branch ONDANSETRON 2020-0 Yes [id number] TAKE 1 Univers 8 mg tablet 2-02 TABLET BY ity of 00:00: MOUTH [place] 00 EVERY 12 Medical HOURS Branch ONDANSETRON 2020-0 Yes [id number] TAKE 1 Univers 8 mg tablet 2-02 TABLET BY ity of 00:00: MOUTH [place] EVERY 12 Medical HOURS Branch ONDANSETRON 0 Yes [id number] TAKE 1 Univers 8 mg tablet 2-02 TABLET BY ity of 00:00: MOUTH [place] EVERY 12 Medical HOURS Branch ONDANSETRON 2020-0 Yes [id number] TAKE 1 Univers 8 mg tablet 2-02 TABLET BY ity of 00:00: MOUTH [place] 00 EVERY 12 Medical HOURS Branch ONDANSETRON 0 Yes [id number] TAKE 1 Univers 8 mg tablet 2-02 TABLET BY ity of 00:00: MOUTH [place] 00 EVERY 12 Medical HOURS Branch BD INSULIN 2015- Yes Univers SYRINGE 1-25 ity of HALF UNIT 00:00: [place] 0.3 mL 31 Medical gauge x Branch " Syrg BD INSULIN 2015-11 Yes Univers SYRINGE 1-25 ity of HALF UNIT 00:00: [place] 0.3 mL Medical gauge x Branch " Syrg BD INSULIN 2015-11 Yes Univers SYRINGE 1-25 ity of HALF UNIT 00:00: [place] 0.3 mL Medical gauge x Branch " Syrg BD INSULIN 2015- Yes Univers SYRINGE 1-25 ity of HALF UNIT 00:00: [place] 0.3 mL Medical gauge x Branch " Syrg BD INSULIN 2015-11 Yes Univers SYRINGE 1-25 ity of HALF UNIT 00:00: [place] 0.3 mL Medical gauge x Branch " Syrg BD INSULIN 2015- Yes Univers SYRINGE 1-25 ity of HALF UNIT 00:00: [place] 0.3 mL 31 00 Medical gauge x Branch 15/64" Syrg BD INSULIN 2015-11 Yes Univers SYRINGE 1-25 ity of HALF UNIT 00:00: [place] 0.3 mL 31 00 Medical gauge x Branch 15/64" Syrg BD INSULIN 2015-11 Yes Univers SYRINGE 1-25 ity of HALF UNIT 00:00: [place] 0.3 mL 31 00 Medical gauge x Branch 1564" Syrg BD INSULIN 2015-11 Yes Univers SYRINGE 1-25 ity of HALF UNIT 00:00: [place] 0.3 mL 31 00 Medical gauge x Branch 1564" Syrg BD INSULIN 2015-11 Yes Univers SYRINGE 1-25 ity of HALF UNIT 00:00: [place] 0.3 mL 31 00 Medical gauge x Branch 1564" Syrg BD INSULIN 2015-11 Yes Univers SYRINGE 1-25 ity of HALF UNIT 00:00: [place] 0.3 mL 31 00 Medical gauge x Branch 1564" Syrg insulin 2015-11 Yes [id number] Use 4 Unive rs syringe-nee 0-25 times ity of dle U-100 00:00: daily [place] (BD INSULIN 00 Medical SYRINGE Branch ULTRA-FINE) 0.3 mL 31 gauge x 15/64" Syrg insulin 2015-11 Yes [id number] Use 4 Unive rs syringe-nee 0-25 times ity of dle U-100 00:00: daily [place] (BD INSULIN 00 Medical SYRINGE Branch ULTRA-FINE) 0.3 mL 31 gauge x 15/64" Syrg insulin 2015-11 Yes [id number] Use 4 Unive rs syringe-nee 0-25 times ity of dle U-100 00:00: daily [place] (BD INSULIN 00 Medical SYRINGE Branch ULTRA-FINE) 0.3 mL 31 gauge x 15/64" Syrg insulin 2015-11 Yes [id number] Use 4 Unive rs syringe-nee 0-25 times ity of dle U-100 00:00: daily [place] (BD INSULIN 00 Medical SYRINGE Branch ULTRA-FINE) 0.3 mL 31 gauge x 15/64" Syrg insulin 2015-11 Yes [id number] Use 4 Unive rs syringe-nee 0-25 times ity of dle U-100 00:00: daily [place] (BD INSULIN 00 Medical SYRINGE Branch ULTRA-FINE) 0.3 mL 31 gauge x 15/64" Syrg insulin 2015-11 Yes [id number] Use 4 Unive rs syringe-nee 0-25 times ity of dle U-100 00:00: daily [place] (BD INSULIN 00 Medical SYRINGE Branch ULTRA-FINE) 0.3 mL 31 gauge x 15/64" Syrg insulin 2015-11 Yes [id number] Use 4 Unive rs syringe-nee 0-25 times ity of dle U-100 00:00: daily [place] (BD INSULIN 00 Medical SYRINGE Branch ULTRA-FINE) 0.3 mL 31 gauge x 15/64" Syrg insulin 2015-11 Yes [id number] Use 4 Unive rs syringe-nee 0-25 times ity of dle U-100 00:00: daily [place] (BD INSULIN 00 Medical SYRINGE Branch ULTRA-FINE) 0.3 mL 31 gauge x 15/64" Syrg insulin 2015-11 Yes [id number] Use 4 Unive rs syringe-nee 0-25 times ity of dle U-100 00:00: daily [place] (BD INSULIN 00 Medical SYRINGE Branch ULTRA-FINE) 0.3 mL 31 gauge x 15/64" Syrg insulin 2015-11 Yes [id number] Use 4 Unive rs syringe-nee 0-25 times ity of dle U-100 00:00: daily [place] (BD INSULIN 00 Medical SYRINGE Branch ULTRA-FINE) 0.3 mL 31 gauge x 15/64" Syrg insulin 2015-11 Yes [id number] Use 4 Unive rs syringe-nee 0-25 times ity of dle U-100 00:00: daily [place] (BD INSULIN 00 Medical SYRINGE Branch ULTRA-FINE) 0.3 mL 31 gauge x 15/64" Syrg insulin Yes [id number] Use 4 Unive rs syringe-nee 7-25 times ity of dle U-100 1 00:00: daily with [place] ml (INSULIN 00 insulin Medic al SYRINGE) 1 Branch mL 29 gauge x 1/2" Syrg insulin Yes [id number] Use 4 Unive rs syringe-nee 7-25 times ity of dle U-100 1 00:00: daily with [place] ml (INSULIN 00 insulin Medic al SYRINGE) 1 Branch mL 29 gauge x 1/2" Syrg insulin Yes [id number] Use 4 Unive rs syringe-nee 7-25 times ity of dle U-100 1 00:00: daily with [place] ml (INSULIN 00 insulin Medic al SYRINGE) 1 Branch mL 29 gauge x 1/2" Syrg insulin Yes [id number] Use 4 Unive rs syringe-nee 7-25 times ity of dle U-100 1 00:00: daily with [place] ml (INSULIN 00 insulin Medic al SYRINGE) 1 Branch mL 29 gauge x 1/2" Syrg insulin Yes [id number] Use 4 Unive rs syringe-nee 7-25 times ity of dle U-100 1 00:00: daily with [place] ml (INSULIN 00 insulin Medic al SYRINGE) 1 Branch mL 29 gauge x 1/2" Syrg insulin Yes [id number] Use 4 Unive rs syringe-nee 7-25 times ity of dle U-100 1 00:00: daily with [place] ml (INSULIN 00 insulin Medic al SYRINGE) 1 Branch mL 29 gauge x 1/2" Syrg insulin Yes [id number] Use 4 Unive rs syringe-nee 7-25 times ity of dle U-100 1 00:00: daily with [place] ml (INSULIN 00 insulin Medic al SYRINGE) 1 Branch mL 29 gauge x 1/2" Syrg insulin Yes [id number] Use 4 Unive rs syringe-nee 7-25 times ity of dle U-100 1 00:00: daily with [place] ml (INSULIN 00 insulin Medic al SYRINGE) 1 Branch mL 29 gauge x 1/2" Syrg insulin Yes [id number] Use 4 Unive rs syringe-nee 7-25 times ity of dle U-100 1 00:00: daily with [place] ml (INSULIN 00 insulin Medic al SYRINGE) 1 Branch mL 29 gauge x 1/2" Syrg insulin Yes [id number] Use 4 Unive rs syringe-nee 7-25 times ity of dle U-100 1 00:00: daily with [place] ml (INSULIN 00 insulin Medic al SYRINGE) 1 Branch mL 29 gauge x 1/2" Syrg insulin Yes [id number] Use 4 Unive rs syringe-nee 7-25 times ity of dle U-100 1 00:00: daily with [place] ml (INSULIN 00 insulin Medic al SYRINGE) 1 Branch mL 29 gauge x 1/2" Syrg Immunizations Ordered Filled Immunization Date Status Comments [facility] e Immunization Name Name Influenza Virus 2019-02-26 Completed Universit y of Vaccine [place] .5 mL 00:00:00 [place] [facility] IM 6+ MO Branch Influenza Virus 2019-02-26 Completed Universit y of Vaccine [place] .5 mL 00:00:00 [place] [facility] IM 6+ MO Branch Influenza Virus 2019-02-26 Completed Universit y of Vaccine [place] .5 mL 00:00:00 [place] [facility] IM 6+ MO Branch Influenza Virus 2019-02-26 Completed Universit y of Vaccine [place] .5 mL 00:00:00 [place] [facility] IM 6+ MO Branch Influenza Virus 2019-02-26 Completed Universit y of Vaccine [place] .5 mL 00:00:00 [place] [facility] IM 6+ MO Branch Influenza Virus 2019-02-26 Completed Universit y of Vaccine [place] .5 mL 00:00:00 [place] [facility] 6+ MO Branch Influenza Virus 2019-02-26 Completed Universit y of Vaccine [place] .5 mL 00:00:00 [place] [facility] 6+ MO Branch Influenza Virus 2019-02-26 Completed Universit y of Vaccine [place] .5 mL 00:00:00 [place] [facility] 6+ MO Branch Influenza Virus 2019-02-26 Completed Universit y of Vaccine [place] .5 mL 00:00:00 [place] [facility] 6+ MO Branch Influenza Virus 2019-02-26 Completed Universit y of Vaccine [place] .5 mL 00:00:00 [place] [facility] 6+ MO Branch Influenza Virus 2019-02-26 Completed Universit y of Vaccine [place] .5 mL 00:00:00 [facility] 6+ MO Branch Td 2017-10-07 Completed University of 00:00:00 [facility] TD, NOS 2017-10-07 Completed University of 00:00:00 [facility] TD, NOS 2017-10-07 Completed University of 00:00:00 [facility] TD, NOS 2017-10-07 Completed University of 00:00:00 [facility] TD, NOS 2017-10-07 Completed University of 00:00:00 [facility] Branch TD, NOS 2017-10-07 Completed University of 00:00:00 [facility] Branch TD, NOS 2017-10-07 Completed University of 00:00:00 [facility] TD, NOS 2017-10-07 Completed University of 00:00:00 [facility] TD, NOS 2017-10-07 Completed University of 00:00:00 [facility] TD, NOS 2017-10-07 Completed University of 00:00:00 [facility] TD, NOS 2017-10-07 Completed University of 00:00:00 [facility] Branch TDAP 2015-01-01 Completed University of 00:00:00 [facility] Branch TDAP 2015-01-01 Completed University of 00:00:00 [facility] Branch TDAP 2015-01-01 Completed University of 00:00:00 [facility] Branch TDAP 2015-01-01 Completed University of 00:00:00 [facility] Branch TDAP 2015-01-01 Completed University of 00:00:00 [facility] Branch TDAP 2015-01-01 Completed University of 00:00:00 [facility] Branch TDAP 2015-01-01 Completed University of 00:00:00 [facility] Branch TDAP 2015-01-01 Completed University of 00:00:00 [facility] Branch TDAP 2015-01-01 Completed University of 00:00:00 [facility] Branch TDAP 2015-01-01 Completed University of 00:00:00 [facility] TDAP 2015-01-01 Completed University of 00:00:00 [facility] Influenza Virus 2011-10-15 Completed Universit y of Vaccine 00:00:00 [facility] Pneumococcal 2011-10-15 Completed University o f Polysaccharide, 00:00:00 [place] [facility] ical PPSV23 (PNEUMOVAX) Branch Influenza Virus 2011-10-15 Completed Universit y of Vaccine 00:00:00 [facility] Pneumococcal 2011-10-15 Completed University o f Polysaccharide, 00:00:00 [place] [facility] ical PPSV23 (PNEUMOVAX) Branch Influenza Virus 2011-10-15 Completed Universit y of Vaccine 00:00:00 [facility] Pneumococcal 2011-10-15 Completed University o f Polysaccharide, 00:00:00 [place] [facility] ical PPSV23 (PNEUMOVAX) Branch Influenza Virus 2011-10-15 Completed Universit y of Vaccine 00:00:00 [facility] Pneumococcal 2011-10-15 Completed University o f Polysaccharide, 00:00:00 [place] [facility] ical PPSV23 (PNEUMOVAX) Branch Influenza Virus 2011-10-15 Completed Universit y of Vaccine 00:00:00 [facility] Pneumococcal 2011-10-15 Completed University o f Polysaccharide, 00:00:00 [place] [facility] PPSV23 (PNEUMOVAX) Branch Influenza Virus 2011-10-15 Completed Universit y of Vaccine 00:00:00 [facility] Pneumococcal 2011-10-15 Completed University o f Polysaccharide, 00:00:00 [place] [facility] ical PPSV23 (PNEUMOVAX) Branch Influenza Virus 2011-10-15 Completed Universit y of Vaccine 00:00:00 [facility] Pneumococcal 2011-10-15 Completed University o f Polysaccharide, 00:00:00 [place] [facility] PPSV23 (PNEUMOVAX) Branch Influenza Virus 2011-10-15 Completed Universit y of Vaccine 00:00:00 [facility] Pneumococcal 2011-10-15 Completed University o f Polysaccharide, 00:00:00 [place] Med ical PPSV23 (PNEUMOVAX) Branch Influenza Virus 2011-10-15 Completed Universit y of Vaccine 00:00:00 [facility] Pneumococcal 2011-10-15 Completed University o f Polysaccharide, 00:00:00 [place] [facility] PPSV23 (PNEUMOVAX) Branch Influenza Virus 2011-10-15 Completed Universit y of Vaccine 00:00:00 [facility] Pneumococcal 2011-10-15 Completed University o f Polysaccharide, 00:00:00 [place] [facility] PPSV23 (PNEUMOVAX) Branch Influenza Virus 2011-10-15 Completed Universit y of Vaccine 00:00:00 [facility] Pneumococcal 2011-10-15 Completed University o f Polysaccharide, 00:00:00 [place] [facility] PPSV23 (PNEUMOVAX) Branch Rho (d) Immune 2011-10-12 Completed University of Globulin 00:00:00 [facility] Rho (d) Immune 2011-10-12 Completed University of Globulin 00:00:00 [facility] Rho (d) Immune 2011-10-12 Completed University of Globulin 00:00:00 [facility] Rho (d) Immune 2011-10-12 Completed University of Globulin 00:00:00 [facility] Rho (d) Immune 2011-10-12 Completed University of Globulin 00:00:00 [facility] Rho (d) Immune 2011-10-12 Completed University of Globulin 00:00:00 [facility] Rho (d) Immune 2011-10-12 Completed University of Globulin 00:00:00 [facility] Rho (d) Immune 2011-10-12 Completed University of Globulin 00:00:00 [facility] Rho (d) Immune 2011-10-12 Completed University of Globulin 00:00:00 [facility] Rho (d) Immune 2011-10-12 Completed University of Globulin 00:00:00 [facility] Branch Rho (d) Immune 2011-10-12 Completed University of Globulin 00:00:00 [facility] Vital Signs Vital Name Observation Time Observation Value Comments Source Systolic blood 2023-04-02 21:08:00 118 mm[Hg] Univer sity of pressure [place] [facility] Diastolic blood 2023-04-02 21:08:00 69 mm[Hg] Unive rsity of pressure [facility] Branch Heart rate 2023-04-02 21:08:00 97 /min Universi ty of [place] [facility] Body temperature 2023-04-02 21:08:00 36.83 Sangeeta Univ ersity of [place] [facility] Respiratory rate 2023-04-02 21:08:00 16 /min Univ ersity of [place] [facility] Oxygen saturation in 2023-04-02 21:08:00 97 /min University of Arterial blood by [place] [employer] Pulse oximetry Branch Body weight 2023-03-30 22:20:00 44.906 kg [facility]i ty of [place] [facility] BMI 2023-03-30 22:20:00 19.33 kg/m2 [facility] ty [facility] [place] [facility] Systolic blood 2023-03-24 17:08:00 156 mm[Hg] Univer sity of pressure [place] [facility] Diastolic blood 2023-03-24 17:08:00 94 mm[Hg] Unive rsity of pressure [place] [facility] Heart rate 2023-03-24 17:08:00 96 /min [facility]i ty [facility] [place] [facility] Body temperature 2023-03-24 17:08:00 35.56 Sangeeta Univ ersity of [place] [facility] Respiratory rate 2023-03-24 17:08:00 18 /min Univ ersity of [place] [facility] Oxygen saturation in 2023-03-24 17:08:00 99 /min University of Arterial blood by [place] [employer] ban Pulse oximetry Branch Body weight 2023-03-24 09:14:00 57.97 kg [facility]i ty [facility] [place] [facility] BMI 2023-03-24 09:14:00 24.96 kg/m2 [facility] [place] [facility] Body height 2023-03-21 22:41:00 152.4 cm [facility]i ty [facility] [place] [facility] Systolic blood 2022-12-22 17:17:00 163 mm[Hg] Univer sity of pressure [place] [facility] Diastolic blood 2022-12-22 17:17:00 98 mm[Hg] [facility] Heart rate 2022-12-22 17:17:00 89 /min [facility] Body weight 2022-12-22 17:17:[facility] 17:17:00 21.72 kg/m2 [facility] Oxygen saturation in 2022-12-22 17:17:00 100 /min [facility] Arterial blood by [facility] Pulse oximetry Branch Systolic blood 2022-06-30 16:47:00 159 mm[Hg] [facility]iver [facility]ity [facility] Diastolic blood 2022-06-30 16:47:00 92 mm[Hg] [facility] Heart rate 2022-06-30 16:47:00 85 /min [facility] Body weight 2022-06-30 16:47:[address] [facility] BMI 2022-06-30 16:47:00 20.51 kg/m2 [facility] Procedures Procedure Date / Time Performing Source Performed Clinician POCT GLUCOSE (AUTOMATED) 2023-04-02 Brandon Villagran [facility] 22:11:00 Medical Branch POCT GLUCOSE (AUTOMATED) 2023-04-02 Brandon Villagran [facility] 21:09:00 Medical Branch FOLATE 2023-04-02 [facility] x[facility] 20:02:00 Medical Branch POCT GLUCOSE (AUTOMATED) 2023-04-02 Brandon Villagran [facility] 17:21:00 Medical Branch POCT GLUCOSE (AUTOMATED) 2023-04-02 Brandon Villagran [facility] 13:29:00 Medical Branch BASIC METABOLIC PANEL (NA, K, 2023-04-02 Haylee Steiner [facility] CL, CO2, GLUCOSE, BUN, 09:43:00 Medical [facility] CREATININE, [place]) POCT GLUCOSE (AUTOMATED) 2023-04-02 Brandon Villagran [facility] 09:36:00 Medical Branch PROTHROMBIN TIME / INR 2023-04-02 Alex Becerra [facility] 02:01:00 [facility] Branch MAGNESIUM 2023-04-02 Duran Herrera, [facility] xas 02:00:00 [facility] BASIC METABOLIC PANEL (NA, K, 2023-04-02 Duran Herrera, [facility] CL, CO2, GLUCOSE, BUN, 02:00:00 [facility] ranch CREATININE, [place]) CBC WITHOUT DIFF 2023-04-02 [facility]00 [facility] POCT GLUCOSE (AUTOMATED) 2023-04-02 Brandon Villagran [facility] 01:17:00 [facility] ELECTROENCEPHALOGRAM 2023-04-02 Cory [facility] 00:00:00 [facility] Branch POCT GLUCOSE (AUTOMATED) 2023-04-01 Brandon Villagran [facility] 21:37:00 [facility] POCT GLUCOSE (AUTOMATED) 2023-04-01 Brandon Villagran [facility] 17:54:00 [facility] CEREBROSPINAL FLUID PROTEIN 2023-04-01 KeeganNegrito [facility] 17:45:00 [facility] CEREBROSPINAL FLUID GLUCOSE 2023-04-01 [facility] 17:45:00 [facility] BODY FLUID DIRECT COUNT 2023-04-01 [facility] 17:45:00 [facility] CYTO SPINAL FLUID 2023-04-01 [facility] 17:45:00 [facility] CSF CULTURE 2023-04-01 [facility] 17:45:00 [facility] MENINGITIS/ENCEPHALITIS PANEL 2023-04-01 Aurora Ray [facility] BY PCR 17:45:00 [facility] POCT GLUCOSE (AUTOMATED) 2023-04-01 Brandon Villagran [facility] 14:52:[address] [facility] [address] ABDOMEN PELVIS W CONTRAST 2023-04-01 [facility] 04:58[facility]43 [facility] MR BRAIN W WO CONTRAST [facility]23[facility]04-[facility] POCT TEST 2023-04-01 Kuldeep [facility] [place] 03:45:00 [facility] POCT GLUCOSE (AUTOMATED) 2023-04-01 Brandon Villagran [facility] 01:32:00 [facility] POCT GLUCOSE (AUTOMATED) 2023-04-01 Brandon Villagran [facility] 00:29:00 [facility] POCT GLUCOSE (AUTOMATED) 2023-03-31 Brandon Villagran [facility] 21:20:00 [facility] URINE CULTURE 2023-03-31 [facility] [place] 18:05:00 [facility] POCT GLUCOSE (AUTOMATED) 2023-03-31 Brandon Villagran [facility] 17:12:00 [facility] POCT GLUCOSE (AUTOMATED) 2023-03-31 Brandon Villagran [facility] 12:59:00 [facility] BASIC METABOLIC PANEL (NA, K, 2023-03-31 Milad Valdez [facility] CL, CO2, GLUCOSE, BUN, 09:24:00 [facility] CREATININE, CA) CBC WITH DIFF 2023-03-31 [facility] [place] 09:24:[address] [facility] [address] HEAD WO CONTRAST 2023-03-31 Kuldeep [facility] [place] 03:02:10 [facility] PHOSPHORUS 2023-03-31 [facility] [place] 02:48:00 [facility] MAGNESIUM 2023-03-31 [facility] [place] 02:48:00 [facility] VITAMIN B12, LEVEL 2023-03-31 Valdez [facility] 02:48:00 [facility] COMP. METABOLIC PANEL (76885) 2023-03-31 [facility] 02:[facility]00 [facility] ETHANOL 2023-03-31 [facility] [place] 02:48:00 [facility] CBC WITH DIFF 2023-03-31 Kuldeep [facility] [place] 02:48:00 [facility] URINALYSIS 2023-03-31 [facility] URINE DRUG (IMMUNOASSAY) - 2023-03-31 Ger Light [facility] COMPREHENSIVE DRUG SCREEN W/O 02:00:00 Me dical Branch REFLEX POCT GLUCOSE (AUTOMATED) 2023-03-30 [facility] 22:24:00 [facility] CONSENT/REFUSAL FOR DIAGNOSIS 2023-03-30 Doctor Unassigned, [facility] AND TREATMENT 21:49:06 [place] [facility] [place] POCT GLUCOSE (AUTOMATED) 2023-03-24 [facility] 17:09:00 Medical Branch POCT GLUCOSE (AUTOMATED) 2023-03-24 [facility] 12:55:00 Medical Branch BASIC METABOLIC PANEL (NA, K, 2023-03-24 Rinku [facility] CL, CO2, GLUCOSE, BUN, 11:16:00 Medical B ranch CREATININE, CA) CBC WITH DIFF 2023-03-24 [facility] [place] 09:32:00 Medical Branch POCT GLUCOSE (AUTOMATED) 2023-03-24 [facility] 02:01:00 Medical Branch POCT GLUCOSE (AUTOMATED) 2023-03-23 [facility] 22:04:00 Medical Branch POCT GLUCOSE (AUTOMATED) 2023-03-23 [facility] 16:29:00 Medical Branch POCT GLUCOSE (AUTOMATED) 2023-03-23 [facility] 12:56:00 Medical Branch MAGNESIUM 2023-03-23 [facility] [place] 10:00:00 [facility] BASIC METABOLIC PANEL (NA, K, 2023-03-23 Lakhwinder [facility] CL, CO2, GLUCOSE, BUN, 10:00:00 Medical B ranch CREATININE, CA) CBC WITH DIFF 2023-03-23 Lakhwinder [facility] xa 10:00:00 Medical Branch POCT GLUCOSE (AUTOMATED) 2023-03-23 [facility] 01:52:00 Medical Branch POCT GLUCOSE (AUTOMATED) 2023-03-22 [facility] 21:38:00 Medical Branch POCT GLUCOSE (AUTOMATED) 2023-03-22 [facility] 16:50:00 [facility] URINE CULTURE 2023-03-22 Lakhwinder [facility] 16:23:00 [facility] POCT GLUCOSE (AUTOMATED) 2023-03-22 [facility] 12:48:00 [facility] BLOOD CULTURE SCREEN 2023-03-22 [facility] 09:24:00 [facility] HEPATIC FUNCTION PANEL 2023-03-22 [facility] ([id number]) (ALB,T.PRO,BILI 09:24:00 [facility] T,BU/BC,ALT,AST,ALK PHOS) BASIC METABOLIC PANEL (NA, K, 2023-03-22 [facility] [place] [facility] CL, CO2, GLUCOSE, BUN, 09:24:00 Medical B ranch CREATININE, CA) LIPID PANEL (79822)(TOTAL 2023-03-22 [facility] CHOLESTEROL, TRIGLYCERIDES, 09:24:00 [facility] HDL) CBC WITH DIFF 2023-03-22 [facility] 09:24:00 [facility] GLYCOSYLATED HEMOGLOBIN (A1C) 2023-03-22 Stephen Bowers [facility] 09:24:00 [facility] BLOOD CULTURE SCREEN 2023-03-22 [facility] 09:20:00 [facility] POCT GLUCOSE (AUTOMATED) 2023-03-22 [facility] 00:49:00 [facility] POCT GLUCOSE (AUTOMATED) 2023-03-21 [facility] 22:35:00 [facility] LACTIC ACID WHOLE BLOOD 2023-03-[address] [facility] 20:02:[address] [facility] [address] ABDOMEN PELVIS W CONTRAST 2023-03-21 Singer Rudy [facility] 18:58:00 [facility] COMP. METABOLIC PANEL (74515) 2023-03-21 Rudy Delvalle [facility] 17:14:00 [facility] CBC WITH DIFF 2023-03-21 [facility] 17:14:00 Medical Branch GLYCOSYLATED HEMOGLOBIN (A1C) 2023-03-21 Rinku Almas [facility] 17:14:00 Medical Branch VBG+VCOOX+NA+K+GLU+CA2+ 2023-03-[address] [facility] 17:14:00 Medical Branch LACTIC ACID WHOLE BLOOD 2023-03-[address] [facility] 17:14:00 Medical Branch URINALYSIS 2023-03-21 Singer [facility] [place] 17:01:00 Medical Branch XR CHEST 1 VW 2023-03-21 Singer [facility] [place] 16:51:47 Medical Branch NOTICE OF PRIVACY PRACTICES 2023-03-21 Doctor Unassigned, [facility] 15:58:41 [facility] CONSENT/REFUSAL FOR DIAGNOSIS 2023-03-21 Doctor Unassigned, [facility] AND TREATMENT 15:57:37 [facility] DME/SUPPLY JUSTIFICATION 2022-12-29 [facility] 06:01:00 [facility] POCT HEMOGLOBIN A1C TEST 2022-12-22 Nicholas Salvador [facility] 17:24:00 Medical Branch Encounters Start End Encounter Admission Attending Care Care Encounter Source Date/Time Date/Time Type Type Clinicians Facility Department ID 2021-09-16 Emergency [facility] [id number] Univers 12:56:56 ity of [facility] 2021-09-16 Emergency [facility] [id number] Univers 09:53:22 ity of [facility] 2021-09-15 Emergency [facility] [id number] Univers 21:01:41 camerony of [facility] 2023-06-22 2023-06-22 Outpatient R ISMAEL [facility] [id number] Univers 11:00:00 11:00:00 NICHOLAS noel of [facility] 2023-03-30 2023-04-02 Inpatient Osei HURTADOJoaquín SORAIDA [facility] JENNYFER [id number] Univers 17:23:00 18:19:00 ity of [facility] 2023-03-30 2023-04-02 [facility] Ger Light 1.2.840.11 [id number] Univers 17:23:00 18:19:00 Encounter Brandon Villagran 350.1.13.10 ity of [facility] 4.2.7.2.686 [place] [phone] [facility] 098 Branch 2023-03-27 2023-03-27 Transition RICHI Scott 1.2.840.114 [id number] Univers 00:00:00 00:00:00 of Care Elle RUBINY 350.1.13.10 i ty of [place] [id number] [facility] 403 Branch 2023-03-21 2023-03-24 Inpatient X RINKU [facility] [id number] Univers 11:24:00 13:09:00 ALMAS ity of [facility] 2023-03-21 2023-03-24 [facility] Rudy Delvalle [facility] 1.2.840.1 [id number] Univers 11:24:00 13:09:00 Encounter Almas Dobbs [place] 350.1.13.10 ity of [place] [id number] [facility] 081 Branch 2023-01-27 2023-01-27 Ju [facility] 1.2.968.105 [id number] Univers 00:00:00 00:00:00 Nicholas H [employer] 350.1.13.10 it y of [place] 4.2.7.2.686 Perry as KIMBER?BLEA [phone] [facility] [address] MEDICAL OFFICE BUILDING 2022-12-29 2022-12-29 Orders Doctor MANOLO 1.2.840.114 [id number] Univers 00:00:00 00:00:00 Only Unassigned, AUGUSTIN 350.1.13.10 ity of [place] [facility] 4.2.7.2.686 [place] as [phone] [facility] 009 Branch 2022-12-25 2022-12-25 Ju [facility] 1.2.109.464 [id number] Univers 00:00:00 00:00:00 Nicholas H HEALTH 350.1.13.10 it y of [place] 4.2.7.2.686 Perry as KIMBER?BLEA [id number] [address] OFFICE [facility] 2022-12-25 2022-12-25 Telephone Is[facility] 1.2.840.114 [id number] Univers 00:00:00 00:00:00 Nicholas [employer] 350.1.13.10 it y of [place] 4.2.7.2.686 [place] as KIMBER?BLEA [id number] [address] OFFICE [facility] 2022-12-22 2022-12-22 Outpatient R [facility] [id number] Univers 11:30:00 12:25:51 NICHOLAS trinity [facility] 2022-12-22 2022-12-22 Office [facility] 1.2.747.397 [id number] [facility] 11:30:00 12:25:51 Visit Nicholas KickSport 350.1.13.10 it y of [facility] 4.2.7.2.686 [place] as KIMBER?BLEA [id number] [address] OFFICE [facility] 2022-12-08 2022-12-08 Outpatient R [facility]ROHE[facility] [id number] Univers 10:30:00 10:30:00 RAIZA [facility] 2022-11-29 2022-11-29 Refavril RandleM[facility] 1.2.840.114 [id number] Univers 00:00:00 00:00:00 Raiza HEALTH 350.1.13.10 it y of [place] 4.2.7.2.686 [place] as KIBMER?BLEA [phone] [address] OFFICE [facility] 2022-07-23 2022-07-23 Refavril Rand[facility] 1.2.840.114 [id number] Univers 00:00:00 00:00:00 Raiza HEALTH 350.1.13.10 it y of [place] 4.2.7.2.686 Perry as KIMBER?BLEA [id number] [address] OFFICE [facility] 2022-07-05 2022-07-05 Refill [facility] 1.2.937.546 [id number] Univers 00:00:00 00:00:00 Nicholas GOODWIN 350.1.13.10 it y of [place].2.[place] [phone] [facility] [address] 2022-07-05 2022-07-05 Refavril Carie [facility] 1.2.840.114 [id number] Univers 00:00:00 00:00:00 [facility] 350.1.13.10 it y of [facility] 4.2.7.2.686 [place] as KIMBER?BLEA [phone] [facility] [address] MEDICAL OFFICE BUILDING 2022-06-30 2022-06-30 Residence Hall Director Lab, Ang - [facility] 1.2.840.1 [id number] Univers 12:00:00 12:15:00 Visit Mane Jarvis [facility] 350.1.13. 10 ity of [place] 4.2.7.2.686 Perry as KIMBER?BLEA [id number] [facility] 353 [facility] OFFICE [facility] 2022-06-30 2022-06-30 Outpatient Maris LYONSMANE Kuo [facility] [id number] Univers 11:20:00 12:03:42 KRISSYMANE ZAMORA [facility] 2022-06-30 2022-06-30 Office Kr[facility] 1.2.840.114 [id number] Univers 11:20:00 12:03:42 Visit [facility] 350.1.13.10 ity of [place] 4.2.7.2.686 [place] as KIMBER?BLEA [phone] [facility] [address] MEDICAL OFFICE [facility] 2022-06-30 2022-06-30 Outpatient Maris MANE JARVIS [facility] [id number] Univers 12:00:00 12:00:00 MANE JARVIS [facility]tr[facility] 2022-06-15 2022-06-15 Refill [facility] 1.2.840.114 [id number] Univers 00:00:00 00:00:00 [facility] 350.1.13.10 ity of [place] 4.2.7.2.686 Perry as KIMBER?BLEA [phone] Me shelby [facility] 092 [facility] OFFICE [facility] 2022-06-02 2022-06-02 Residence Hall Director Lab, Ang - Db [facility] 1.2.840.1 14 [id number] Univers 11:00:00 11:00:00 [facility] 350.1.13.10 ity of [place] 4.2.7.2.686 [place] as KIMBER?BLEA [phone] Vt shelby [facility] 353 [facility] OFFICE [facility] 2022-06-02 2022-06-02 Outpatient R [facility] [id number] Univers 10:30:00 10:30:13 RAIZA ity of [facility] 2022-06-02 2022-06-[address] [facility] 1.2.840.114 [id number] Univers 10:30:00 10:30:13 Visit [facility] 350.1.13.10 it y of [facility] 4.2.7.2.686 [place] as KIMBER?BLEA [phone] Vt shelby [facility] 220 [facility] OFFICE [facility] 2022-06-02 2022-06-02 Orders Doctor MANOLO 1.2.840.114 [id number] Univers 00:00:00 00:00:00 Only Unassigned, AUGUSTIN 350.1.13.10 ity of [place] [facility] 4.2.7.2.686 [place] as [id number] [address] 2022-05-22 2022-05-[address] [facility] 1.2.840.114 [id number] Univers 00:00:00 00:00:00 [facility] HEALTH 350.1.13.10 it y of [place] 4.2.7.2.686 [place] as KIMBER?BLEA [phone] Vt shelby [facility] 220 [facility] OFFICE [facility] 2022-04-27 2022-04-[address] [facility] 1.2.462.502 [id number] Univers 00:00:00 00:00:00 Raiza HEALTH 350.1.13.10 it y of [place] 4.2.7.2.686 [place] as KIMBER?BLEA [phone] Vt shelby [facility] 220 [facility] OFFICE [facility] 2022-04-26 2022-04-26 Telephone [facility] 1.2.688.330 [id number] Univers 00:00:00 00:00:00 Raiza HEALTH 350.1.13.10 it y of [facility] 4.2.7.2.686 [place] as KIMBER?BLEA [phone] Vt dical VITO 220 [facility] 2022-03-23 2022-03-23 Refill [facility] 1.2.840.114 [id number] Univers 00:00:00 00:00:00 Raiza HEALTH 350.1.13.10 it y of [place] 4.2.7.2.686 Perry as KIMBER?BLEA [phone] Vt shelby [facility] 220 [facility] 2022-03-12 2022-03-12 Refavril JarvisMOUNT[facility] 1.2.840.114 [id number] Univers 00:00:00 00:00:00 Mane Merchant [place] 350.1.13.10 ity [facility] 4.2.7.2.[place] [phone] Vt dical NAL 092 [facility] 2022-02-07 2022-02-07 Outpatient R [facility] [id number] Univers 10:00:00 10:54:42 RAIZA ity [facility] 2022-02-07 2022-02-[address] [facility] 1.2.840.114 [id number] Univers 10:00:00 10:54:42 Visit [facility] 350.1.13.10 it y of [place] 4.2.7.2.686 Perry as KIMBER?BLEA [phone] Vt shelby [facility] 220 [facility] 2022-02-07 2022-02-07 Outpatient R [facility] [id number] Univers 10:00:00 10:54:42 RAIZA ity [facility] 2021-12-05 2021-12-05 Refavril EscobarMOUNT[facility] 1.2.840.114 [id number] Univers 00:00:00 00:00:00 Wentong [facility] 350.1.13.10 i ty of [facility] 4.2.7.2.[place] [phone] Vt dical NAL 220 [facility] 2021-12-05 2021-12-05 Ju Jarvis [facility] 1.2.840.114 [id number] Univers 00:00:00 00:00:00 Mane PECK 350.1.13.10 ity of [facility] 4.2.7.2.[place] [id number] Vt dical NAL 092 [facility] 2021-11-17 2021-11-17 Office [facility] 1.2.918.429 [id number] Univers 09:00:00 09:35:03 Visit Amado PECK 350.1.13.10 i ty of [place] 4.2.7.2.[place] [phone] Vt dical NAL 134 [facility] 2021-11-17 2021-11-17 Outpatient R [facility] [id number] Univers 09:00:00 09:35:03 ity of [facility] 2021-11-17 2021-11-17 Outpatient R [facility] [id number] Univers 09:00:00 09:00:00 ity of [facility] 2021-11-17 2021-11-17 Outpatient R [facility] [id number] Univers 09:00:00 09:00:00 ity of [facility] 2021-11-17 2021-11-17 Orders Doctor FRENCH 1.2.840.114 [id number] Univers 00:00:00 00:00:00 Only Unassigned, AUGUSTIN 350.1.13.10 ity of [place] [facility] 4.2.7.2.686 [place] as [phone] [address] 2021-10-11 2021-10-11 Telephone Angela [facility] 1.2.840.114 [id number] Univers 00:00:00 00:00:00 Amado PECK 350.1.13.10 i ty of [facility] 4.2.7.2.[place] [id number] Vt dical NAL 134 [facility] 2021-10-07 2021-10-07 Outpatient R CARIE [facility] [id number] Univers 11:00:00 11:57:59 RAIZA barnesy [facility] 2021-10-07 2021-10-07 Office [facility] 1.2.840.114 [id number] Univers 10:48:18 11:57:59 Visit [facility] 350.1.13.10 it y of [place] 4.2.7.2.686 Perry as KIMBER?BLEA [phone] Vt dical [address] OFFICE [facility] 2021-10-07 2021-10-07 Orders Doctor MANOLO 1.2.840.114 [id number] Univers 00:00:00 00:00:00 Only Unassigned, AUGUSTIN 350.1.13.10 ity of [place] [facility] 4.2.7.2.686 [place] as [phone] [address] 2021-09-27 2021-09-27 Outpatient R KARIE [facility] [id number] Univers 08:30:00 09:44:07 [facility] 2021-09-27 2021-09-27 Outpatient Maris TIWARI [facility] [id number] Univers 08:30:00 09:44:07 ZEE [facility] 2021-09-27 2021-09-27 Office Cinthya Miller [facility] 1.2.840.114 [id number] Univers 08:26:44 09:44:07 Visit Zee Tiwari 350.1.13.10 ity of [facility] 4.2.7.2.686 [place] [phone] Vt dical NAL 134 [facility] 2021-09-26 2021-09-26 Refavril Escobar [facility] 1.2.840.114 [id number] Univers 00:00:00 00:00:00 Erna PECK 350.1.13.10 i ty of [facility] 4.2.7.2.686 [place] [phone] Vt dical NAL 220 [facility] 2021-09-22 2021-09-22 Refill [facility] 1.2.840.114 [id number] Univers 00:00:00 00:00:00 Raiza [place] 350.1.13.10 i ty of [place] 4.2.7.2.686 [place] [phone] [facility] [address] BUILDING 2021-07-29 2021-07-29 Telephone Veena Rodriguez 1.2.840.114 [id number] Univers 00:00:00 00:00:00 , Yesi Med Mortensen 350.1.13.10 ity of [place] 4.2.7.2.[place] [phone] [facility] 086 Branch 2021-07-19 2021-07-19 Telephone Carie [facility] 1.2.419.823 [id number] Univers 00:00:00 00:00:00 Raiza ROSADOPEC 350.1.13.10 ity of [place] 4.2.7.2.686 [place] CENTER [phone] [facility] AND RANCOCAS [address] [facility] 2021-05-31 2021-05-31 Outpatient Maris ESCOBAR [facility] [id number] Univers 14:00:00 14:00:00 [facility] 2021-05-31 2021-05-31 Orders Doctor MANOLO 1.2.840.114 [id number] Univers 00:00:00 00:00:00 Only Unassigned, AUGUSTIN 350.1.13.10 ity of [place] [facility] 4.2.7.2.686 [place] as [phone] [facility] 009 Branch 2021-04-08 2021-04-08 Outpatient MANE BOOTH [facility] [id number] Univers 11:00:00 11:00:00 MANE JARVIS [facility] 2021-01-26 2021-01-26 Outpatient Maris ESCOBAR [facility] [id number] Univers 13:00:00 13:00:00 ERNA noel [facility] 2020-09-21 2020-09-21 Outpatient Maris ESCOBAR [facility] [id number] Univers 11:00:00 11:00:00 ERNA noel [facility] 2020-08-19 2020-08-19 Outpatient Maris VILLATORO [facility] [id number] Univers 13:45:00 13:45:00 [facility] 2020-07-29 2020-07-29 Refill Benjamín [facility] 1.2.840.114 [id number] 00:00:00 00:00:00 Erna [place] 350.1.13.10 [place] 4.2.7.2.686 Professio [phone] [facility] 220 Building 2020-07-20 2020-07-20 Hospital [facility] 1.2.840.114 [id number] 10:18:42 23:59:00 Encounter [facility] 350.1.13.10 Surgical 4.2.7.2.686 Specialti [id number] es 809 [place] 2020-07-20 2020-07-20 Outpatient Maris [facility] [id number] Univers 11:15:00 11:15:00 [facility] 2020-07-20 2020-07-20 Office [facility] 1.2.840.114 [id number] 10:10:01 10:25:01 Visit [facility] 350.1.13.10 Surgical 4.2.7.2.686 Specialti [id number] es 198 [place] 2020-07-13 2020-07-13 Outpatient Maris [facility] [id number] Univers 16:15:00 16:15:00 [facility] 2020-07-07 2020-07-07 Outpatient Maris ESCOBAR [facility] [id number] Univers 13:30:00 13:30:00 [facility] 2020-07-06 2020-07-06 Outpatient Maris [facility] [id number] Univers 16:15:00 16:15:00 [facility] 2020-05-18 2020-05-18 Outpatient Maris ESCOBAR [facility] [id number] Univers 13:00:00 13:00:00 [facility] 2020-04-01 2020-04-01 Emergency X MITZI, [facility] ERT [id number] Univers 13:21:44 17:19:00 SHINTA [facility] 2020-01-14 2020-01-14 Outpatient R ESCOBAR, [facility] [id number] Univers 13:00:00 13:00:00 [facility] Results Test Description Test Time Test Comments Results Result Comments Source FOLATE 2023-04-02 22:18:36 Test Item Value Reference Range Interpretation Comme nts FOLATE SER (test code = 4957943163) 6.6 ng/mL 3.0-20.0 Biotin has been reported to cause a positiv e bias, interpret resul ts relative to patient's use o f biotin. Lab Interpretation (test code = Normal 53170-9) [facility] GLUCOSE (AUTOMATED)2023-04-02 22:12:48 Test Item Value Reference Range Interpretation Comments POCT GLU (test code = 6012472276) 108 mg/dL 70-110 Lab Interpretation (test code = Normal 32480-4) [facility] GLUCOSE (AUTOMATED)2023-04-02 21:10:41 Test Item Value Reference Range Interpretation Comments POCT GLU (test code = 5792622531) 80 mg/dL 70-110 Lab Interpretation (test code = Normal 32399-8) [facility] [id number] 20:20:10 Test Item Value Reference Range Interpretation Comments Case Report (test code = Non-Gynecologic [id number]) Cytology ?Case: [id number] ?Authorizing Provider: ?Brandon Villagran MD ?Collected: ? 04/01/2023 1245 ?Ordering Location: ? ? Neurology/Neurologica l ? ? Received: ?04/01/2023 1513 ? Surgery ([facility] 11B) ?Pathologist: ? Diamond Burroughs MD ? Specimen: ? ?CEREBRAL SPINAL FLUID ? Final Diagnosis (test d7osgANbARPyp4ejLJKmc code = [id number]) GFuZzEwMzNcZnRuYmpcdW MxIHtccnRmMVxlcGljMTA lKQZtRC5ttCsuvTi9aBld DWSefzR2uIZyHHdgy6jdE OY6w5scghkvUUKnLHipLz 9udHRibHtcZjAgQXJpYWw 0bA16LZNqbD9foOQiRKz8 XHBhcGVydzEyMjQwXHBhc QLfzGQ5ZHBwDC9xfhvaZZ fbWDbyATMyuwF9ZLHcsYR sT6TcOLAoBA7gwvycHSJ2 BIxfPSLrKHF0RrOhBKEit 8Zqgeu4XeHhiWLmFSbpbU FpblxiXGZzMjBccGFyIEE nYVDQEQPIDhNFQ8AMMsAV IEZMVUlEOlxwYXIgICAgI RIdVO4AU9TWZDAHXYGKYz HIVUkSC14LAtWuI6BOFHG mHANeFSmJGBHoT07LNZEE VClccGFyXGZzMjJccGFyf KyonzKuXUaro0VlQ9LcNn AwMFxhbnNpXGRlZmxhbmc sUKAfCNX8nnTyLJKbBHaw VKVpCWmtOn9xeVPyrLpjL bEpUYLzh7zpuwUYOVpvEo CvY642ZCFqZScrh3zuy8F pVSVneVMwo4T4KLEDhdpj qNa5m9dmXtLrVaZ0kUMvX DupK6owhhOhyRXrM0MsiV TysSp1eDnhW52fu0S6Pyw hB0ncELYsYWAfJ1FwAI1m RMYiXqn7ZMT3WCS1JPVsB TOtT4VhJB6kIAAvgIKiQJ r7c9xcdUpzICEbQYK3q0c hUWgvfgX0DU0hfi6emGr0 r5mbmrKxLFQdWZGowXBMI OXoR3SwgDybMf1zpCb5sU pdCmowBIK9Hky1ZM3gwt4 8abb6rVwaQMZmzjuoFeT3 LWzkEWRwdzkmEAs6JGgdI EPziGX1QMQjoFJzE5HtDA PoIG3lofp7RPM5LUwhBXZ kPsJ6FTZcsDIcGETiyAkz THhgu279KNX0KiWmXU4kP 6Fkq3K5rD3rpZUdSSSgxK PrPxSrSLIdja1owNBqOVv vk0BcPST7xbC2bHHpjANj PURiSR35Qjoxi6EmPpnmF BV0LXZwluTlk3Wwc4xgEw ZbriKfY0noN3GzWQGzUWJ nNNKnNiErkePqs3Kfi1Bl eXUavMf4q9tzSAZdMSBno Osng4qhUBH8JYNxI1U2eG Fni1jeANdaZAXwqEG1hxW 0IOBcfSWbD3OfmP8fLVDr MV0xwli7r5khXPZ3PWiyD KPxWgS3nbB8HWHkfVElWX WsuFycZWprl158IXH1ZzB zJRFqc2QcW4GkdEtvR95a jMmuV91rRZAcwGofzW4xs ZgytY8jUaZkPzTaNLueiD xwbGFpblxmMVxmczIwXGx drbwhDPItDEtuY9ehEmGk RPLusDdcRPayy5OfUEKjJ GNmMlxmczIwXHBhciBJIG ucxqGozSFvk44fJEvulKB zUJGkHTnaROLhzMemh7Re U5biSF8hJ0EsnRNkfbUax mDnZOwxWVAhk0v0mZIqxA tfk3RxkTRaZG29vcVzJWZ dWXG7OKSyi2siOO24npym VhHlsJ68ovAbuoVvZDGkp 2knP5drbRRds3Ecw4Pjnz FpDQcib5RmKA9dcPXptdv peJY8CZGkhHKglaJlwdK3 yZehMBBwqB7dcY7xcHcvg O4oIcPnTaHzSNcmJM9eKW JmW8qquUOnLNXtGZWkK6b aFsVaoI6izAtdYpcxviF9 JNRrmd56 Final Diagnosis Comment r6xrfFBtLNWgeUPlFVOtM (test code = 4721039712) rafwbQmBHBdwQJpU5Qpic hiFZfsKR5xBH8ksYetzCT hbIVrRRZlLsJfd9hki987 dEGnh7clYJMRneruwUh6w YrlJ45pl6U5PhowC70mhH AeKJD2KYNnFEGfxOEwQHS pCDK6FTCyfSCnF8wwAIJo QE9qieouKOksTAerHJGwx ZS9PPUcqROoK0ZcLNPqNB ujWZMhufh6XcCuVq9vpIZ yeTcyMFxwYXJkXHBsYWlu QHCiXmZmO05gOKViQMTxt 4rxxxBrRXOkf14lF1w8OS TtZX5pTPl3tXUhv9G8mVS nRaHAabKrGOcrU15scpEz G1SvmTBoRHBaEYjjCC10n WZpZWQuXHBhcn0= Clinical Information altered mental status (test code = 0922405718) Gross Description (test l8vbmSQdGSZevGKeWVWfP code = 7034782654) qourrZhFDGqnMCcS0Judy ocWEhsOZ8kUW0lcPeilML mkFApUZVwUbLfa0fbi236 aGYrd4azCFNNwyarmXa4f EdaU65re9M7LsnsA39fwN EyEES5XSFlIDSklXDmSQB eMNG9OSAeeTWlK4osZLMp EP3wdnncTSzgYYtjFPKyr QH5TOGktWFwQ7JwQTYjAA gfSILkuyt7RiLpLn6nkKF xkGncDXxeNxcajBaoa8Gf dCBcXGlkIDUxMDAwIFxcZ FYuD5TQYKEbMzC7VbF6Rk PrXmEXIIN3IZH4PxsmIFW YOPXjWPxyQKW7XPV4DnWC UlIgODAwMDAwMDAwMSBcX Y4yMCiohWQiSZjdDsvgWQ gxA031JWupDWUyS9OjT1P aCMovVYR1NHImFgKqHEUy NM4QPqRxIFxbSYG2ZXJqD Oy6FNg2ZG6BMmFfKUVoYr DsGBldTXBvZGa3JGdaKF4 XXWV3HOm6FNsoEFDdYIN6 FlCwUGe5ODRwYKobthEvU BhnRaphPLrqT86zfCHyGB xwbGFpblxmczIwXHBhclx oNACrDNBkUwQmVVTkL2jo YjMwXHBsYWluXGZzMjJcc GFyXHBhcmQgQTEuICBDRV GSDlBLH4JTHaBPDZCHXZp EXHBhciBSZWNlaXZlZCBm izFweDKbspJoJGGoP5Adl 3RlY5qkCPUnGgl3wHMhzt FoGBp1MVQojJAfJPRgIeS sWFPlD8odLBVfYMXeIVMz glYzHUZhb3mrETTuSOuGl OTdu1PcbaHmagEvNOBtwH scgtQ0VVTeRm4wQJ6pl6Q reSBhbmQgMSBQYXBhbmlj b1itm7Ymf5KhxE8kJJg6K LKwcXDjMWX1JV0vwKkuPV JmX4VlG2GqwfA2JGLjfw4 = Disclaimer (test code = z5vquHIaFVOcm9mcKOIdh 5929955739) GFuZzEwMzNcZnRuYmpcdW HjUNccumVvNHbse1HuI2B yMjAwMFxhbnNpXGRlZmxh ochdFZGxQPP7ehVkHXDeZ KjdNGEwUHsfWq9oyGJikY pqAmJcUVLjx5niuiEEHUz kVsOyI766MEExAPubz1cv v4JkAIGpqHGhp4A5ABZDp bmtsXj5xQoqQ43kt4P5Ox soJ6uzEIGbYXTvZ0GaEP3 uASOaMir0HYZ9AUG6QDYl ISIlQ3AqMS1yOIMsbDHxA Iw5y1igfUbjTRHqPAV8t7 xuLWudizKsHH1bjp8ggMp 1l9ycgnUkWULoUGNotAUC UZNuQ3XgiWonDl8smUo4r GcsNhtcHQQ7Lqc5LI8fxe 90pmz5yDdqFDIdrxqhZjH 9CLsgTPHajkneSUf3LYkp JQLqqZY8VERciJCwW8AfV YHdCW7oakc2ARV4TXlqJN OwQlL3XGSnkILvQFVjiVk mZQzmq192NJE7RfGwSB2b L6Wtt2T2eV3rtSIhWCQfe ZXkHpRjFJMzkb8avPUoPC div1ZrJSD3niP1iFRmkAX fAGObQO78Magvr5AmXjzp z8IfX15ywJB2EGpju5icW S9mMxU1itJnBMltj4xrrT 8nAmP0RBpfSR3qMP9eBDT pdN5rqldeLODdDfGvwzka KYSttJhcrqPpAe4ycDvsO GW1EFeyE8jidJ0cRpC9CQ tkW4apmC5vIBu4ZFvqaMH 8FLRibW5zAV3sryyoq4js OZbjUTetPMHscwP6oiQ2K BFplEVoI7EbwO3wVTPvCT 4dtsqhl0oeGCP2BNriOPY xRVM5MzHfHCBcm4Csfod9 AwSbk1SjqTLwRXbwY09pd 119NZJlydDjD0gfzXDvno hecAOrwaewYFjcjhW1YLG jyxHoc7ThKLScYDC7WWsy DYxlgSBuSAXimUspe2jeU 3RscGFyXHBsYWluXGYxXG ZzMjBcbGFuZzEwMzNcaGl jaFxmMVxkYmNoXGYxXGxv J2enYjRmI5OnSJGkAvGfr GNwR2saNAapixJwMGRwum BgkMT2LLbxQ1z4IBCjwnL rpRe3uaXqViBqUEBuIDJ3 OWtiuWSaOXWjk0Tudlmvm FVhUc8clIUuTDGvuK6zCA XhQMTjWFugFY0qrUb1PFE LqBUbaZJhBlQLNAQtTR43 gvPrFXPGcrysi4Z0BCbcR CAdh2QreQZlP3krp2IiGL Xuq26rQK7rm2Q3a6pcAAB 8QN3jl9NtHPCufKRgrKBn MTItv5Mhdkjci9LmNKKcg oTuh0JlNTPslgBkvCLeKI KtigBxdo1elfRvYYJlKWO gY0KdpkxooAurzlLuABRc yy7zzhBfJIT0WPZTPKEmW EUkf2ShvE7qzGWCELG9kI Htxm7iwfDCoSRsBLCwhu5 4IZAgRU4aI9hzOXAbUSPy ovFyqIFrr2XxTQFkrCR2u CFlFS0SCyXAn66aJJLgSD GMbjXtCEKssFuzbAO9kpF 6oM7sXVgJNIShMha+IFRo LFKXAWGwMW3qehWrf5Tou pLfwHjoMDHdlBWhj3NbcG Asv2EspDqqz7RaiRUuyUE eVF1iMHDyefsdGHJoGUBA IoNCCURtrbR6j1ZtEBJzK JPhCTT6wZhmfdl6BKXllT 7eCJByC4iawrylTKapEKX uv7PqoU9glCVEdDJqy6Dc iKCdpPHZrUQzSE6hyqZgP VrCLKpQBLL2crEmJMWnr2 MkPAruH9uaZ24mxFzcyJv 5mVF2PQA4vY6pOer+IFxw YXJccGFyIEFwcHJvcHJpY DQloVfxoiWjE7BrpcGgwH 0vrEMuprTtWQ4yYP6tA5W 6lJYaTQXaixHnr8yqDUpl dmUgYmVlbiByZXZpZXdlZ NDgq1OjQDszJQT5FSluqi BpbmNsdWRpbmcgSCZFLCB YdTJefISfXPP2VBukcbWf soHdLM3qhH2moSgapO4am KBqzLG7uhkmWFThYTHewE qtDDXePQ6rcRKnVVYgboI VzGjemTFmpT5vX7LzORVz CNIaex6gFPSskE0tDHnww 2VydmljZXMgYXJlIHBlcm Sfdy9uESJlaPLCJH7YIAm cfFQye3PaeyVhQ4iTBEC6 NUQwNjYwMjgxKSBleGNlc XYgYOUobk80LHGsbS5xyP zdUOUojD1ysB2fzAjqoT1 nPtFtFaSwLXfbSV4jKRWg Z3skmNAqORQeDYKtN9gwV sEdeQ3dhEbgPOtsMoHgNl HlHYmwIIV0sR== Embedded Images (test code = 1366366281) [facility] GLUCOSE (AUTOMATED)2023-04-02 17:30:22 Test Item Value Reference Range Interpretation Comments POCT GLU (test code = 2225910244) 234 mg/dL 70-110 H Lab Interpretation (test code = Abnormal 31409-5) [facility] GLUCOSE (AUTOMATED)2023-04-02 13:30:16 Test Item Value Reference Range Interpretation Comments POCT GLU (test code = 9766133539) 370 mg/dL 70-110 H Lab Interpretation (test code = Abnormal 91668-8) [facility] METABOLIC PANEL (NA, K, CL, CO2, GLUCOSE, BUN, CREATININE, CA)2023-04-02 10:31:08 Test Item Value Reference Range Interpretation Comments NA (test code = 127 mmol/L 135-145 L 5765329350) K (test code = 4.7 mmol/L 3.5-5.0 8519076682) CL (test code = 89 mmol/L 98-108 L 5665687512) CO2 TOTAL (test code = 24 mmol/L 23-31 9367655469) AGAP (test code = 14 2-16 7661305116) BUN (test code = 14 mg/dL 7-23 5129083519) GLUCOSE (test code = 218 mg/dL 70-110 H 7667284154) CREATININE (test code = 0.44 mg/dL 0.50-1.04 L 1115675955) CALCIUM (test code = 8.3 mg/dL 8.6-10.6 L 6413125709) eGFR (test code = 160.9 mL/min/1.73m2 3140153949) BEAU (test code = BEAU) Association of Glomerular Filtration Rate (GFR) and Staging of Kidney Disease* + --+ --+ ------+| GFR (mL/min/1.73 m2) ?| With Kidney Damage ?| ?Without Kidney Damage+ --------+ --------+ +| ?>90 ?| ?Stage one ?| ? Normal ?+ ---+ ---+ -------+| ?60-89 ?| ?Stage two ?| ? Decreased GFR ? + --+ --+ ------+| ?30-59 ?| ?Stage three ?| ? Stage three ? + --+ --+ ------+| ?15-29 ?| ?Stage four ? | ? Stage four ?+ ---+ ---+ -------+| ?<15 (or dialysis) ? ?| ?Stage five ? | ? Stage five ?+ ---+ ---+ -------+ *Each stage assumes the associated GFR level has been in effect for at least three months. ?Stages 1 to 5, with or without kidney disease, indicate chronic kidney disease. Notes: Determination of stages one and two (with eGFR >59mL/min/1.73 m2) requires estimation of kidney damage for at least three months as defined by structural or functional abnormalities of the kidney, manifested by either:Pathological abnormalities or Markers of kidney damage (including abnormalities in the composition of the blood or urine or abnormalities in imaging tests). Lab Interpretation Abnormal (test code = 70837-9) [facility] 09:37:40 Test Item Value Reference Range Interpretation Comments POCT GLU (test code = 229 mg/dL 70-110 H Notifi ed Provider [id number]) Lab Interpretation (test Abnormal code = 20976-0) [facility] (NA, K, CL, CO2, GLUCOSE, BUN, CREATININE, CA)2023-04-02 02:37:51 Test Item Value Reference Range Interpretation Comments NA (test code = 128 mmol/L 135-145 L 9867389849) K (test code = 4.2 mmol/L 3.5-5.0 6492145152) CL (test code = 92 mmol/L 98-108 L 6868017233) CO2 TOTAL (test code = 20 mmol/L 23-31 L 9722991678) AGAP (test code = 16 2-16 2333095450) BUN (test code = 16 mg/dL 7-23 3783866918) GLUCOSE (test code = 100 mg/dL 70-110 5583617768) CREATININE (test code = 0.60 mg/dL 0.50-1.04 7333772669) CALCIUM (test code = 8.6 mg/dL 8.6-10.6 6923801784) eGFR (test code = 112.5 mL/min/1.73m2 2427385078) BEAU (test code = BEAU) Association of Glomerular Filtration Rate (GFR) and Staging of Kidney Disease* + --+ --+ ------+| GFR (mL/min/1.73 m2) ?| With Kidney Damage ?| ?Without Kidney Damage+ --------+ --------+ +| ?>90 ?| ?Stage one ?| ? Normal ?+ ---+ ---+ -------+| ?60-89 ?| ?Stage two ?| ? Decreased GFR ? + --+ --+ ------+| ?30-59 ?| ?Stage three ?| ? Stage three ? + --+ --+ ------+| ?15-29 ?| ?Stage four ? | ? Stage four ?+ ---+ ---+ -------+| ?<15 (or dialysis) ? ?| ?Stage five ? | ? Stage five ?+ ---+ ---+ -------+ *Each stage assumes the associated GFR level has been in effect for at least three months. ?Stages 1 to 5, with or without kidney disease, indicate chronic kidney disease. Notes: Determination of stages one and two (with eGFR >59mL/min/1.73 m2) requires estimation of kidney damage for at least three months as defined by structural or functional abnormalities of the kidney, manifested by either:Pathological abnormalities or Markers of kidney damage (including abnormalities in the composition of the blood or urine or abnormalities in imaging tests). Lab Interpretation Abnormal (test code = 42921-5) [facility] 02:37:51 Test Item Value Reference Range Interpretation Comments MAGNESIUM (test code = 5665216780) 1.4 mg/dL 1.7-2.4 L Lab Interpretation (test code = Abnormal 33558-6) [facility] / [id number] 02:22:28 Test Item Value Reference Range Interpretation Comments PROTIME PATIENT (test 11.1 See_Comment [Auto mated message] code = 5964-2) The system [email or web address] generated this result transmitted ref erence range: 10.1 - 1 2.6 Seconds. The re ference range was not u sed to interpret this result as normal/abnor mal. INR (test code = 6301-6) 1.0 Nor mal INR <1.1; Warfarin Therap eutic range 2.0 to 3. 0 or 2.5 to 3.5, dep ending upon the indica tions. Lab Interpretation (test Normal code = 02800-0) [facility] WITHOUT [id number] 02:16:07 Test Item Value Reference Range Interpretation Comments WBC (test code = 6690-2) 6.21 See_Comment [A utomated message] The system [employer] generated this result transmit eddie reference range : 4.30 - 11.10 10*3/?L. The reference range was not used to interpret this result as normal/abnormal . RBC (test code = 789-8) 3.46 See_Comment L [Au tomated message] The system [employer] generated this result transmit eddie reference range : 3.93 - 5.25 10* 6/?L. The reference r charly was not used to interpret this result as normal/abnormal . HGB (test code = 718-7) 11.6 g/dL 11.6-15.0 HCT (test code = 4544-3) 32.8 % 35.7-45.2 L MCH (test code = 785-6) 33.5 pg 25.9-32.8 H MCV (test code = 787-2) 94.8 fL 80.6-95.5 MCHC (test code = 786-4) 35.4 g/dL 31.6-35.1 H PLT (test code = 777-3) 503 See_Comment H [Au tomated message] The system [employer] generated this result transmit eddie reference range : 166 - 358 10*3/?L. The reference range was not used to interpret this result as normal/abnormal . MPV (test code = 9.2 fL 9.5-12.9 L 37088-5) RDW-CV (test code = 11.2 % 12.0-15.5 L 788-0) RDW-SD (test code = 38.8 fL 39.0-49.9 L 56178-2) NRBC x10^3 (test code = See_Comment [Au tomated message] 8712846366) The system [employer] generated this result transmit eddie reference range : 10*3/?L. The reference range was not used to interpret this result as normal/abnormal . NRBC/100 WBC (test code 0.0 See_Comment [Au tomated message] = 2245848311) The system [facility] generated this result transmit eddie reference range : 0.0 - 10.0 /100 WBC s. The reference r charly was not used to interpret this result as normal/abnormal . IPF % (test code = 2559856696) Lab Interpretation (test Abnormal code = 11930-9) [facility] GLUCOSE (AUTOMATED)2023-04-02 01:18:31 Test Item Value Reference Range Interpretation Comments POCT GLU (test code = 6806083371) 71 mg/dL 70-110 Lab Interpretation (test code = Normal 05171-5) [facility] GLUCOSE (AUTOMATED)2023-04-01 21:38:15 Test Item Value Reference Range Interpretation Comments POCT GLU (test code = 5322522940) 152 mg/dL 70-110 H Lab Interpretation (test code = Abnormal 63699-7) [facility] FLUID DIRECT [id number] 19:25:12 Test Item Value Reference Range Interpretation Comments BF COLOR (test code = Clear 6193031844) BF WBC Count (test 1 See_Comment [Automat ed message] The code = 4245852533) system [facility] generated this result transmit eddie reference range : 0 - 5 /?L. The reference r charly was not used to interpr et this result as raffaele l/abnormal. BF RBC Count (test 0 See_Comment [Automat ed message] The code = 4823542706) system [facility] generated this result transmit eddie reference range : /?L. The reference range was not used to interpr et this result as raffaele l/abnormal. [facility] FLUID MANUAL [id number] 19:25:12 Test Item Value Reference Range Interpretation Comments BF LYMPHS% (test code = 80455-1) 81 % 28-96 BF MACROPHAGE% (test code = 25300-4) 19 % 16-56 BF #CELLS CNTD (test code = 1788707361) 26 cells/uL [facility] FL[facility] [id number] 18:48:15 Test Item Value Reference Range Interpretation Comments T. PRO CSF (test code = 50.0 mg/dL 15.0-45.0 H 1558598050) UNSPUN BODY FLUID COLOR (test Colorless code = 1496880049) UNSPUN BODY FLUID CLARITY (test Clear code = 3843834928) SPUN BODY FLUID COLOR (test code Colorless = 2805530101) SPUN BODY FLUID CLARITY (test Clear code = 1586697218) Sediment (test code = 9279597347) No sediment Lab Interpretation (test code = Abnormal 19055-9) [facility] [id number] 18:48:15 Test Item Value Reference Range Interpretation Comments GLU CSF (test code = 4699788854) 81 mg/dL 50-80 H UNSPUN BODY FLUID COLOR (test Colorless code = 2917821382) UNSPUN BODY FLUID CLARITY (test Clear code = 3502238968) SPUN BODY FLUID COLOR (test code Colorless = 8476044459) SPUN BODY FLUID CLARITY (test Clear code = 1167979172) Sediment (test code = 1298662049) No sediment Lab Interpretation (test code = Abnormal 66201-6) [facility] GLUCOSE (AUTOMATED)2023-04-01 17:56:21 Test Item Value Reference Range Interpretation Comments POCT GLU (test code = 0292787547) 140 mg/dL 70-110 H Lab Interpretation (test code = Abnormal 20619-4) [facility] GLUCOSE (AUTOMATED)2023-04-01 14:53:23 Test Item Value Reference Range Interpretation Comments POCT GLU (test code = 2054100470) 93 mg/dL 70-110 Lab Interpretation (test code = Normal 02790-7) [facility] GLUCOSE (AUTOMATED)2023-04-01 01:34:20 Test Item Value Reference Range Interpretation Comments POCT GLU (test code = 1597137807) 309 mg/dL 70-110 H Lab Interpretation (test code = Abnormal 61276-4) [facility] GLUCOSE (AUTOMATED)2023-04-01 00:39:25 Test Item Value Reference Range Interpretation Comments POCT GLU (test code = 3812383407) 288 mg/dL 70-110 H Lab Interpretation (test code = Abnormal 89186-3) [facility] GLUCOSE (AUTOMATED)2023-03-31 21:21:05 Test Item Value Reference Range Interpretation Comments POCT GLU (test code = 6209379571) 350 mg/dL 70-110 H Lab Interpretation (test code = Abnormal 47398-1) [facility] GLUCOSE (AUTOMATED)2023-03-31 17:13:30 Test Item Value Reference Range Interpretation Comments POCT GLU (test code = 6699079573) 219 mg/dL 70-110 H Lab Interpretation (test code = Abnormal 48214-4) [facility] GLUCOSE (AUTOMATED)2023-03-31 13:01:01 Test Item Value Reference Range Interpretation Comments POCT GLU (test code = 2223967525) 269 mg/dL 70-110 H Lab Interpretation (test code = Abnormal 97616-5) [facility] Metabolic Panel (Na, K, Cl, CO2, Glucose, BUN, Creatinine, Ca)2023-03-31 09:47:56 Test Item Value Reference Range Interpretation Comments NA (test code = 134 mmol/L 135-145 L 1665657622) K (test code = 4.7 mmol/L 3.5-5.0 2490803528) CL (test code = 102 mmol/L 98-108 4171365822) CO2 TOTAL (test code = 18 mmol/L 23-31 L 4507817828) AGAP (test code = 14 2-16 5469145877) BUN (test code = 24 mg/dL 7-23 H 9888465509) GLUCOSE (test code = 302 mg/dL 70-110 H 1072609023) CREATININE (test code = 0.80 mg/dL 0.50-1.04 4623801926) CALCIUM (test code = 8.4 mg/dL 8.6-10.6 L 6597757899) eGFR (test code = 80.7 mL/min/1.73m2 6596556040) BEAU (test code = BEAU) Association of Glomerular Filtration Rate (GFR) and Staging of Kidney Disease* + --+ --+ ------+| GFR (mL/min/1.73 m2) ?| With Kidney Damage ?| ?Without Kidney Damage+ --------+ --------+ +| ?>90 ?| ?Stage one ?| ? Normal ?+ ---+ ---+ -------+| ?60-89 ?| ?Stage two ?| ? Decreased GFR ? + --+ --+ ------+| ?30-59 ?| ?Stage three ?| ? Stage three ? + --+ --+ ------+| ?15-29 ?| ?Stage four ? | ? Stage four ?+ ---+ ---+ -------+| ?<15 (or dialysis) ? ?| ?Stage five ? | ? Stage five ?+ ---+ ---+ -------+ *Each stage assumes the associated GFR level has been in effect for at least three months. ?Stages 1 to 5, with or without kidney disease, indicate chronic kidney disease. Notes: Determination of stages one and two (with eGFR >59mL/min/1.73 m2) requires estimation of kidney damage for at least three months as defined by structural or functional abnormalities of the kidney, manifested by either:Pathological abnormalities or Markers of kidney damage (including abnormalities in the composition of the blood or urine or abnormalities in imaging tests). Lab Interpretation Abnormal (test code = 21573-6) [facility] with Dtcuizejfbfj1621-74-34 09:31:16 Test Item Value Reference Range Interpretation Comments WBC (test code = 5.28 See_Comment [Automated 7590-2) message] The sy stem which generated this result transmitted reference range : 4.30 - 11.10 10*3/?L. The reference range was not used to interpret this result as normal/abnormal . RBC (test code = 3.51 See_Comment L [Automated 959-8) message] The sy stem which generated this result transmitted reference range : 3.93 - 5.25 10*6/?L. The reference range was not used to interpret this result as normal/abnormal . HGB (test code = 12.0 g/dL 11.6-15.0 718-7) HCT (test code = 34.3 % 35.7-45.2 L 4544-3) MCV (test code = 97.7 fL 80.6-95.5 H 787-2) MCH (test code = 34.2 pg 25.9-32.8 H 785-6) MCHC (test code = 35.0 g/dL 31.6-35.1 786-4) RDW-SD (test code = 42.3 fL 39.0-49.9 43666-2) RDW-CV (test code = 11.8 % 12.0-15.5 L 788-0) PLT (test code = 444 See_Comment H [Automated 777-3) message] The sy stem which generated this result transmitted reference range : 166 - 358 10*3/ ?L. The reference r charly was not used to interpret this result as normal/abnormal . MPV (test code = 9.0 fL 9.5-12.9 L 73828-8) NRBC/100 WBC (test 0.0 See_Comment [Automat ed code = 0429487737) message] The system which generated this result transmitted reference range : 0.0 - 10.0 /100 WBCs. The refer ence range was not u sed to interpret th is result as normal/abnormal . NRBC x10^3 (test code See_Comment [Auto mated = 6262613458) message] The s ystem which generated this result transmitted reference range : 10*3/?L. The reference range was not used to interpret this result as normal/abnormal . GRAN MAT (NEUT) % 51.6 % (test code = 770-8) IMM GRAN % (test code 0.60 % = 7914061987) LYMPH % (test code = 35.0 % 736-9) MONO % (test code = 11.6 % 5905-5) EOS % (test code = 0.6 % 713-8) BASO % (test code = 0.6 % 706-2) GRAN MAT x10^3(ANC) 2.73 10*3/uL 1.88-7.09 (test code = 4054848695) IMM GRAN x10^3 (test 0.03 10*3/uL 0.00-0.06 code = 8726313708) LYMPH x10^3 (test code 1.85 10*3/uL 1.32-3.29 = 731-0) MONO x10^3 (test code 0.61 10*3/uL 0.33-0.92 = 742-7) EOS x10^3 (test code = 0.03 10*3/uL 0.03-0.39 711-2) BASO x10^3 (test code 0.03 10*3/uL 0.01-0.07 = 704-7) Lab Interpretation Abnormal (test code = 80728-5) [facility] [id number] 06:12:55 Test Item Value Reference Range Interpretation Comments VIT B12 (test code = 956 pg/mL 240-930 H 8403569874) BEAU (test code = BEAU) Biotin has been reported to cause a positive bias, interpret results relative to patient's use of biotin. Lab Interpretation (test Abnormal code = 81403-9) [facility]ballETHANOL2023-05-13 05:52:01 ALCOHOL<10mg/dL03/31/2023 12:52 AM CDTUTMB LABORATORY SERVICESToxic Greater than or equal to 80 mg/dL. NOTE: Whole blood values are approximately 10% to 15% lower than serum and plasma.[facility]ball[facility]esium Serum 2023-03-31 05:22:28 Test Item Value Reference Range Interpretation Comments MAGNESIUM (test code = 1216322988) 1.6 mg/dL 1.7-2.4 L Lab Interpretation (test code = Abnormal 68505-7) [facility]ballPhosphorus [id number] 05:22:28 Test Item Value Reference Range Interpretation Comments PHOSPHORUS (test code = 1746360110) 4.5 mg/dL 2.5-5.0 Lab Interpretation (test code = Normal 53243-5) [facility]ballCOMP. METABOLIC PANEL (48135)2023-03-31 03:26:20 Test Item Value Reference Range Interpretation Comments NA (test code = 133 mmol/L 135-145 L 1828487037) K (test code = 5.1 mmol/L 3.5-5.0 H 1784360228) CL (test code = 99 mmol/L 98-108 1193356816) CO2 TOTAL (test code = 20 mmol/L 23-31 L 5641593921) AGAP (test code = 14 2-16 0256771229) BUN (test code = 28 mg/dL 7-23 H 6680504477) GLUCOSE (test code = 204 mg/dL 70-110 H 2532895955) CREATININE (test code = 1.13 mg/dL 0.50-1.04 H 8851863668) TOTAL BILI (test code = 0.1-1.1 L 3075343318) CALCIUM (test code = 9.1 mg/dL 8.6-10.6 2650094878) T PROTEIN (test code = 6.8 g/dL 6.3-8.2 3983972121) ALBUMIN (test code = 3.8 g/dL 3.5-5.0 6361657903) ALK PHOS (test code = 78 U/L 34-122 6378593047) ALTv (test code = 23 U/L 5-35 1742-6) AST(SGOT) (test code = 25 U/L 13-40 1085892571) eGFR (test code = 54.2 mL/min/1.73m2 9013297691) BEAU (test code = BEAU) Association of Glomerular Filtration Rate (GFR) and Staging of Kidney Disease* + --+ --+ ------+| GFR (mL/min/1.73 m2) ?| With Kidney Damage ?| ?Without Kidney Damage+ --------+ --------+ +| ?>90 ?| ?Stage one ?| ? Normal ?+ ---+ ---+ -------+| ?60-89 ?| ?Stage two ?| ? Decreased GFR ? + --+ --+ ------+| ?30-59 ?| ?Stage three ?| ? Stage three ? + --+ --+ ------+| ?15-29 ?| ?Stage four ? | ? Stage four ?+ ---+ ---+ -------+| ?<15 (or dialysis) ? ?| ?Stage five ? | ? Stage five ?+ ---+ ---+ -------+ *Each stage assumes the associated GFR level has been in effect for at least three months. ?Stages 1 to 5, with or without kidney disease, indicate chronic kidney disease. Notes: Determination of stages one and two (with eGFR >59mL/min/1.73 m2) requires estimation of kidney damage for at least three months as defined by structural or functional abnormalities of the kidney, manifested by either:Pathological abnormalities or Markers of kidney damage (including abnormalities in the composition of the blood or urine or abnormalities in imaging tests). Lab Interpretation Abnormal (test code = 49500-4) [facility] WITH [id number] 03:00:17 Test Item Value Reference Range Interpretation Comments WBC (test code = 5.85 See_Comment [Automated 6690-2) message] The sy stem which generated this result transmitted reference range : 4.30 - 11.10 10*3/?L. The reference range was not used to interpret this result as normal/abnormal . RBC (test code = 3.84 See_Comment L [Automated 789-8) message] The sy stem which generated this result transmitted reference range : 3.93 - 5.25 10*6/?L. The reference range was not used to interpret this result as normal/abnormal . HGB (test code = 13.1 g/dL 11.6-15.0 718-7) HCT (test code = 38.1 % 35.7-45.2 4544-3) MCV (test code = 99.2 fL 80.6-95.5 H 787-2) MCH (test code = 34.1 pg 25.9-32.8 H 785-6) MCHC (test code = 34.4 g/dL 31.6-35.1 786-4) RDW-SD (test code = 43.0 fL 39.0-49.9 07889-0) RDW-CV (test code = 11.8 % 12.0-15.5 L 788-0) PLT (test code = 637 See_Comment H [Automated 777-3) message] The sy stem which generated this result transmitted reference range : 166 - 358 10*3/ ?L. The reference r charly was not used to interpret this result as normal/abnormal . MPV (test code = 9.2 fL 9.5-12.9 L 13696-5) NRBC/100 WBC (test 0.0 See_Comment [Automat ed code = 3016253715) message] The system which generated this result transmitted reference range : 0.0 - 10.0 /100 WBCs. The refer ence range was not u sed to interpret th is result as normal/abnormal . NRBC x10^3 (test code See_Comment [Auto mated = 2519181218) message] The s ystem which generated this result transmitted reference range : 10*3/?L. The reference range was not used to interpret this result as normal/abnormal . GRAN MAT (NEUT) % 60.0 % (test code = 770-8) IMM GRAN % (test code 0.70 % = 8596317782) LYMPH % (test code = 29.1 % 736-9) MONO % (test code = 8.5 % 5905-5) EOS % (test code = 1.0 % 713-8) BASO % (test code = 0.7 % 706-2) GRAN MAT x10^3(ANC) 3.51 10*3/uL 1.88-7.09 (test code = 7754027576) IMM GRAN x10^3 (test 0.04 10*3/uL 0.00-0.06 code = 7285145978) LYMPH x10^3 (test code 1.70 10*3/uL 1.32-3.29 = 731-0) MONO x10^3 (test code 0.50 10*3/uL 0.33-0.92 = 742-7) EOS x10^3 (test code = 0.06 10*3/uL 0.03-0.39 711-2) BASO x10^3 (test code 0.04 10*3/uL 0.01-0.07 = 704-7) Lab Interpretation Abnormal (test code = 72526-0) [facility] [id number] 00:00:00 Test Item Value Reference Range Interpretation Comments POCT PREG (test code = 1605) Negative On board controls acceptable with C Yes Line (test code = 3574) POCT PREG LOT # (test code = 3575) POCT PREG TEST DATE (test code = 3576) [facility] GLUCOSE (AUTOMATED)2023-03-30 22:26:08 Test Item Value Reference Range Interpretation Comments POCT GLU (test code = 1267878753) 99 mg/dL 70-110 Lab Interpretation (test code = Normal 78091-0) [facility] GLUCOSE (AUTOMATED)2023-03-24 17:10:04 Test Item Value Reference Range Interpretation Comments POCT GLU (test code = 5504564733) 172 mg/dL 70-110 H Lab Interpretation (test code = Abnormal 25077-1) [facility] METABOLIC PANEL (NA, K, CL, CO2, GLUCOSE, BUN, CREATININE, CA)2023-03-24 14:47:34 Test Item Value Reference Range Interpretation Comments NA (test code = 132 mmol/L 135-145 L 0176411043) K (test code = 4.0 mmol/L 3.5-5.0 6256488312) CL (test code = 97 mmol/L 98-108 L 1049828204) CO2 TOTAL (test code = 24 mmol/L 23-31 4701052462) AGAP (test code = 11 2-16 8161956239) BUN (test code = 10 mg/dL 7-23 6158239328) GLUCOSE (test code = 221 mg/dL 70-110 H 8505295650) CREATININE (test code = 0.58 mg/dL 0.50-1.04 1437544888) CALCIUM (test code = 8.5 mg/dL 8.6-10.6 L 7503428889) eGFR (test code = 117.0 mL/min/1.73m2 6719521350) BEAU (test code = BEAU) Association of Glomerular Filtration Rate (GFR) and Staging of Kidney Disease* + --+ --+ ------+| GFR (mL/min/1.73 m2) ?| With Kidney Damage ?| ?Without Kidney Damage+ --------+ --------+ +| ?>90 ?| ?Stage one ?| ? Normal ?+ ---+ ---+ -------+| ?60-89 ?| ?Stage two ?| ? Decreased GFR ? + --+ --+ ------+| ?30-59 ?| ?Stage three ?| ? Stage three ? + --+ --+ ------+| ?15-29 ?| ?Stage four ? | ? Stage four ?+ ---+ ---+ -------+| ?<15 (or dialysis) ? ?| ?Stage five ? | ? Stage five ?+ ---+ ---+ -------+ *Each stage assumes the associated GFR level has been in effect for at least three months. ?Stages 1 to 5, with or without kidney disease, indicate chronic kidney disease. Notes: Determination of stages one and two (with eGFR >59mL/min/1.73 m2) requires estimation of kidney damage for at least three months as defined by structural or functional abnormalities of the kidney, manifested by either:Pathological abnormalities or Markers of kidney damage (including abnormalities in the composition of the blood or urine or abnormalities in imaging tests). Lab Interpretation Abnormal (test code = 86122-8) [facility] 12:56:22 Test Item Value Reference Range Interpretation Comments POCT GLU (test code = 0254983654) 203 mg/dL 70-110 H Lab Interpretation (test code = Abnormal 98356-2) [facility] WITH [id number] 10:28:35 Test Item Value Reference Range Interpretation Comments WBC (test code = 11.95 See_Comment H [Automated 6690-2) message] The sy stem which generated this result transmitted reference range : 4.30 - 11.10 10*3/?L. The reference range was not used to interpret this result as normal/abnormal . RBC (test code = 3.51 See_Comment L [Automated 789-8) message] The sy stem which generated this result transmitted reference range : 3.93 - 5.25 10*6/?L. The reference range was not used to interpret this result as normal/abnormal . HGB (test code = 12.3 g/dL 11.6-15.0 718-7) HCT (test code = 33.9 % 35.7-45.2 L 4544-3) MCV (test code = 96.6 fL 80.6-95.5 H 787-2) MCH (test code = 35.0 pg 25.9-32.8 H 785-6) MCHC (test code = 36.3 g/dL 31.6-35.1 H 786-4) RDW-SD (test code = 40.7 fL 39.0-49.9 92157-9) RDW-CV (test code = 11.5 % 12.0-15.5 L 788-0) PLT (test code = 246 See_Comment [Automated 777-3) message] The sy stem which generated this result transmitted reference range : 166 - 358 10*3/ ?L. The reference r charly was not used to interpret this result as normal/abnormal . MPV (test code = 11.1 fL 9.5-12.9 12082-9) NRBC/100 WBC (test 0.0 See_Comment [Automat ed code = 8703064120) message] The system which generated this result transmitted reference range : 0.0 - 10.0 /100 WBCs. The refer ence range was not u sed to interpret th is result as normal/abnormal . NRBC x10^3 (test code See_Comment [Auto mated = 2951398471) message] The s ystem which generated this result transmitted reference range : 10*3/?L. The reference range was not used to interpret this result as normal/abnormal . GRAN MAT (NEUT) % 79.6 % (test code = 770-8) IMM GRAN % (test code 0.50 % = 4805442840) LYMPH % (test code = 6.6 % 736-9) MONO % (test code = 12.9 % 5905-5) EOS % (test code = 0.1 % 713-8) BASO % (test code = 0.3 % 706-2) GRAN MAT x10^3(ANC) 9.52 10*3/uL 1.88-7.09 H (test code = 9967366834) IMM GRAN x10^3 (test 0.06 10*3/uL 0.00-0.06 code = 1009744097) LYMPH x10^3 (test code 0.79 10*3/uL 1.32-3.29 L = 731-0) MONO x10^3 (test code 1.54 10*3/uL 0.33-0.92 H = 742-7) EOS x10^3 (test code = 0.03-0.39 L 711-2) BASO x10^3 (test code 0.03 10*3/uL 0.01-0.07 = 704-7) Lab Interpretation Abnormal (test code = 34880-2) [facility] GLUCOSE (AUTOMATED)2023-03-24 02:03:28 Test Item Value Reference Range Interpretation Comments POCT GLU (test code = 7107808562) 197 mg/dL 70-110 H Lab Interpretation (test code = Abnormal 38959-8) [facility] GLUCOSE (AUTOMATED)2023-03-23 22:15:22 Test Item Value Reference Range Interpretation Comments POCT GLU (test code = 2219828607) 217 mg/dL 70-110 H Lab Interpretation (test code = Abnormal 93795-5) [facility] GLUCOSE (AUTOMATED)2023-03-23 16:32:56 Test Item Value Reference Range Interpretation Comments POCT GLU (test code = 0609522243) 224 mg/dL 70-110 H Lab Interpretation (test code = Abnormal 49822-9) [facility] GLUCOSE (AUTOMATED)2023-03-23 13:02:17 Test Item Value Reference Range Interpretation Comments POCT GLU (test code = 6375576827) 238 mg/dL 70-110 H Lab Interpretation (test code = Abnormal 48539-6) [facility] GLUCOSE (AUTOMATED)2023-03-23 01:54:36 Test Item Value Reference Range Interpretation Comments POCT GLU (test code = 2216617516) 211 mg/dL 70-110 H Lab Interpretation (test code = Abnormal 90389-8) [facility] GLUCOSE (AUTOMATED)2023-03-22 21:39:25 Test Item Value Reference Range Interpretation Comments POCT GLU (test code = 9576176599) 234 mg/dL 70-110 H Lab Interpretation (test code = Abnormal 98756-2) [facility] GLUCOSE (AUTOMATED)2023-03-22 16:51:04 Test Item Value Reference Range Interpretation Comments POCT GLU (test code = 8795438458) 275 mg/dL 70-110 H Lab Interpretation (test code = Abnormal 06055-3) [facility] GLUCOSE (AUTOMATED)2023-03-22 12:49:07 Test Item Value Reference Range Interpretation Comments POCT GLU (test code = 7743719419) 259 mg/dL 70-110 H Lab Interpretation (test code = Abnormal 99898-5) [facility] GLUCOSE (AUTOMATED)2023-03-22 01:00:32 Test Item Value Reference Range Interpretation Comments POCT GLU (test code = 2268570254) 229 mg/dL 70-110 H Lab Interpretation (test code = Abnormal 62600-7) [facility] 00:05:17 Test Item Value Reference Range Interpretation Comments HGB A1C (test code = 6.4 % 4.0-5.7 H 4548-4) BEAU (test code = BEAU) Reference RangesNormal: <5.7%Prediabetes: 5.7 - 6.4%Diabetes: > 6.5% Lab Interpretation (test Abnormal code = 09789-0) [facility] 22:36:28 Test Item Value Reference Range Interpretation Comments POCT GLU (test code = 6197289971) 227 mg/dL 70-110 H Lab Interpretation (test code = Abnormal 56547-0) [facility] Whole [id number] 20:13:09 Test Item Value Reference Range Interpretation Comments LACTIC ACID (test code = 1.48 mmol/L 0.50-2.20 6269888340) Lab Interpretation (test code = Normal 30107-0) [facility] WITH [id number] 18:26:34 Test Item Value Reference Range Interpretation Comments WBC (test code = 23.39 See_Comment H [Automated 6690-2) message] The system which generated this result transmitted reference range : 4.30 - 11.10 10*3/?L. The reference range was not used to interpret this result as normal/abnormal . RBC (test code = 4.70 See_Comment [Automated 789-8) message] The system which generated this result transmitted reference range : 3.93 - 5.25 10*6/?L. The reference range was not used to interpret this result as normal/abnormal . HGB (test code = 16.3 g/dL 11.6-15.0 H 718-7) HCT (test code = 46.0 % 35.7-45.2 H 4544-3) MCV (test code = 97.9 fL 80.6-95.5 H 787-2) MCH (test code = 34.7 pg 25.9-32.8 H 785-6) MCHC (test code = 35.4 g/dL 31.6-35.1 H 786-4) RDW-SD (test code = 42.5 fL 39.0-49.9 83075-2) RDW-CV (test code = 11.7 % 12.0-15.5 L 788-0) PLT (test code = 255 See_Comment [Automated 777-3) message] The system which generated this result transmitted reference range : 166 - 358 10*3/?L. The reference range was not used to interpret this result as normal/abnormal . MPV (test code = 10.1 fL 9.5-12.9 93189-8) NRBC/100 WBC (test 0.0 See_Comment [Automat ed code = 4442924576) message] The system which generated this result transmitted reference range : 0.0 - 10.0 /100 WBCs. The reference range was not used to interpret this result as normal/abnormal . NRBC x10^3 (test code See_Comment [Auto mated = 1711545335) message] The system which generated this result transmitted reference range : 10*3/?L. The reference range was not used to interpret this result as normal/abnormal . GRAN MAT (NEUT) % 86.6 % (test code = 770-8) IMM GRAN % (test code 0.90 % = 4663203905) LYMPH % (test code = 4.5 % 736-9) MONO % (test code = 7.7 % 5905-5) EOS % (test code = 0.0 % 713-8) BASO % (test code = 0.3 % 706-2) GRAN MAT x10^3(ANC) 20.27 10*3/uL 1.88-7.09 H (test code = 6245137295) IMM GRAN x10^3 (test 0.20 10*3/uL 0.00-0.06 H code = 8856916442) LYMPH x10^3 (test 1.05 10*3/uL 1.32-3.29 L code = 731-0) MONO x10^3 (test code 1.79 10*3/uL 0.33-0.92 H = 742-7) EOS x10^3 (test code 0.03-0.39 L = 711-2) BASO x10^3 (test code 0.08 10*3/uL 0.01-0.07 H = 704-7) BANDS (test code = MARKED INCREASED A 2856728646) Lab Interpretation Abnormal (test code = 92635-8) [facility] METABOLIC PANEL (53131)2023-03-21 17:51:07 Test Item Value Reference Range Interpretation Comments NA (test code = 127 mmol/L 135-145 L 3030193042) K (test code = 4.8 mmol/L 3.5-5.0 5876959634) CL (test code = 86 mmol/L 98-108 L 1822853569) CO2 TOTAL (test code = 22 mmol/L 23-31 L 1370800835) AGAP (test code = 19 2-16 H 2976110217) BUN (test code = 10 mg/dL 7-23 6332617608) GLUCOSE (test code = 230 mg/dL 70-110 H 3749055313) CREATININE (test code = 0.64 mg/dL 0.50-1.04 9633382470) TOTAL BILI (test code = 1.3 mg/dL 0.1-1.1 H 4312826642) CALCIUM (test code = 9.9 mg/dL 8.6-10.6 6183818301) T PROTEIN (test code = 8.7 g/dL 6.3-8.2 H 0417744893) ALBUMIN (test code = 5.2 g/dL 3.5-5.0 H 4823920213) ALK PHOS (test code = 106 U/L 34-122 0949035414) ALTv (test code = 19 U/L 5-35 1742-6) AST(SGOT) (test code = 30 U/L 13-40 3382669872) eGFR (test code = 104.4 mL/min/1.73m2 5247699729) BEAU (test code = BEAU) Association of Glomerular Filtration Rate (GFR) and Staging of Kidney Disease* + --+ --+ ------+| GFR (mL/min/1.73 m2) ?| With Kidney Damage ?| ?Without Kidney Damage+ --------+ --------+ +| ?>90 ?| ?Stage one ?| ? Normal ?+ ---+ ---+ -------+| ?60-89 ?| ?Stage two ?| ? Decreased GFR ? + --+ --+ ------+| ?30-59 ?| ?Stage three ?| ? Stage three ? + --+ --+ ------+| ?15-29 ?| ?Stage four ? | ? Stage four ?+ ---+ ---+ -------+| ?<15 (or dialysis) ? ?| ?Stage five ? | ? Stage five ?+ ---+ ---+ -------+ *Each stage assumes the associated GFR level has been in effect for at least three months. ?Stages 1 to 5, with or without kidney disease, indicate chronic kidney disease. Notes: Determination of stages one and two (with eGFR >59mL/min/1.73 m2) requires estimation of kidney damage for at least three months as defined by structural or functional abnormalities of the kidney, manifested by either:Pathological abnormalities or Markers of kidney damage (including abnormalities in the composition of the blood or urine or abnormalities in imaging tests). Lab Interpretation Abnormal (test code = 36966-4) [facility] HEMOGLOBIN A1C [id number] 17:30:00 Test Item Value Reference Range Interpretation Comments POCT HBA1C (test code = 4548-4) 6.4 % 4-6 A Lab Interpretation (test code = Abnormal 89893-9) [facility] HEMOGLOBIN A1C [id number] 17:30:00 Test Item Value Reference Range Interpretation Comments POCT HBA1C (test code = 4548-4) 6.4 % 4-6 A Lab Interpretation (test code = Abnormal 62039-3) [facility]
[2023-04-04 12:39] LABS: Barbiturates NEGATIVE (NEGATIVE); Benzodiazepines POSITIVE (NEGATIVE); Cocaine NEGATIVE (NEGATIVE); METHAMPHETAM NEGATIVE (NEGATIVE); Methadone NEGATIVE (NEGATIVE); Opiates POSITIVE (NEGATIVE); Phencyclidine NEGATIVE (NEGATIVE); THC Cannibis POSITIVE (NEGATIVE)
[2023-04-04 15:18] LABS: Absolute Lymphocytes (CBC) 1.8 K/uL (0.7-4.9); Hematocrit 32.4 % (36.0-45.0); Lymphocytes % 28.2 % (15.3-44.8); MCV 97.6 fL (80-100); MPV 7.4 fL (7.6-11.3); RBC Red Blood Cell Count 3.32 M/uL (3.86-4.86)
[2023-04-04 15:23] LABS: Blood Morphology Comment NOT SEEN (NOT SEEN); Platelet Estimate INCR; White Blood Cell Scan OK (OK)
[2023-04-04 15:26] LABS: Protime INR 0.96
--- NOTE | 2023-04-04 15:46 | ER ---
Nurse's Notes [facility] Name: Swapna Michaels Age: 37 yrs Sex: Female : 1985 Arrival Date: 04/04/2023 Time: 11:35 Bed 17 Private MD: Diagnosis: Altered mental status, unspecified Presentation: 04/04 11:41 Chief complaint: Patient states: EMS reports called out to [facility] for [facility] employee not acting right. Officer on scene convinced patient to come to hospital. Other staff reported patient not acting as normal self, rambling. Coronavirus screen: At this time, the client does not indicate any symptoms associated with coronavirus-19. Ebola Screen: No symptoms or risks identified at this time. Initial Sepsis Screen: Does the patient meet any 2 criteria? No. Patient's initial sepsis screen is negative. Does the patient have a suspected source of infection? No. Patient's initial sepsis screen is negative. Risk Assessment: Do you want to hurt yourself or someone else? Patient reports no desire to harm self or others. Onset of symptoms was April 04, 2023. 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 - Social history:: Smoking status: Patient reports the use of cigarette tobacco products, Patient/guardian denies using tobacco, Stopped _ months ago 1. Screenin:51 [facility] ED Fall Risk Assessment (Adult) History of falling in the last 3 months, sg5 including since admission Yes- physiologic fall (2 pts). Abuse screen: Denies threats or abuse. Nutritional screening: No deficits noted. Tuberculosis screening: No symptoms or risk factors identified. Assessment: 11:36 General: Appears comfortable, unkempt, Behavior is cooperative, restless. Pain: sg5 Complains of pain in lower back and abdomen. Neuro: Level of Consciousness is awake, alert, obeys commands, Oriented to person, place, time, situation, Appropriate for age. Cardiovascular: Capillary refill < 3 seconds. Respiratory: Airway is patent Respiratory effort is even, unlabored. GI: Abdomen is flat, non-distended. : Reports treated for UTI. EENT: No signs and/or symptoms were reported regarding the EENT system. Derm: No signs and/or symptoms reported regarding the dermatologic system. Musculoskeletal: No signs and/or symptoms reported regarding the musculoskeletal system. Vital Signs: 11:41 BP 156 / 99; Pulse 98; Resp 16; Temp 98.4; Pulse Ox 99% on R/A; Pain 5/10; sg5 12:25 BP 144 / 90; Pulse 88; Resp 16; Pulse Ox 100% on R/A; Pain 4/10; sg5 13:25 BP 129 / 76; Pulse 80; Resp 16; Pulse Ox 99% on R/A; Pain 3/10; sg5 14:35 BP 131 / 82; Pulse 78; Resp 16; Pulse Ox 99% on R/A; Pain 3/10; sg5 15:50 BP 130 / 99; Pulse 75; Resp 16; Pulse Ox 98% on R/A; sg5 11:41 Pain Scale: Adult sg5 12:25 Pain Scale: Adult sg5 13:25 Pain Scale: Adult sg5 14:35 Pain Scale: Adult sg5 ED Course: 11:36 Patient arrived in ED. bp 11:36 Aide Salazar, RN is Primary Nurse. sg5 11:36 Sanford Rahman MD is Attending Physician. marcelina 11:38 Federico Becerril PA is PHCP. jmm 11:44 Triage completed. sg5 11:50 Maintain EMS IV. Dressing intact. Good blood return noted. Site clean \T\ dry. Gauge \T\ sg 5 site: 20 g right AC. 12:04 Radiology exam delayed due to pt refusing scan at this time, Federico notified. sj 15:51 No provider procedures requiring assistance completed. IV discontinued. sg5 15:51 Patient has correct armband on for positive identification. Bed in low position. Call sg5 light in reach. Side rails up X2. Adult w/ patient. Valuables Left with patient. 15:52 Arm band placed on right wrist. sg5 Administered Medications: 12:25 Drug: Ativan IVP 1 mg Route: IVP; Site: right antecubital; sg5 12:25 Drug: HYDROcodone-acetaminophen PO 5 mg-325 mg 1 tabs Route: PO; sg5 12:25 Drug: Ondansetron IVP 4 mg Route: IVP; Site: right antecubital; sg5 Medication: 15:52 VIS not applicable for this client. sg5 Outcome: 15:45 Discharge ordered by . jordy 15:51 Discharged to home with significant other. sg5 15:51 Condition: stable 15:51 Discharge instructions given to patient, Instructed on discharge instructions, follow up and referral plans. 15:52 Patient left the ED. sg5 Signatures: Sanford Rahman MD MD cha Mickail, Joel, PA PA jmm Jones, Susan sj Peltier, Brian RN RN Aide Billy RN RN sg5
--- NOTE | 2023-04-04 15:46 | EDPHYS ---
Physician Documentation [facility] Name: Swapna Michaels Age: 37 yrs Sex: Female : 1985 Arrival Date: 04/04/2023 Time: 11:35 Bed 17 Private MD: ED Physician Sanford Rahman HPI: 04/04 11:36 This 37 yrs old Female presents to ER via EMS with complaints of ams. jmm 11:36 The patient presents with decreased mental status. Onset: The symptoms/episode jmm began/occurred today. Possible causes: drug use, low blood sugar, seizure, sepsis. Associated signs and symptoms: Pertinent negatives: abdominal pain. This is a 37 year old female with a history of dm, seizures that presents to the ED with ams while at a store. Patient states she has had similar episodes after seizures. Patient states she was recently hospitalized for a kidney infection. Patient is currently taking tramadol for pain. states she was discharged from [facility] 2 days ago due to AMS and has been in this state for the past 2 weeks with no change today. . 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 - Social history:: Smoking status: Patient reports the use of cigarette tobacco products, Patient/guardian denies using tobacco, Stopped _ months ago 1. ROS: 11:36 Constitutional: Negative for fever, chills, and weight loss, Cardiovascular: Negative jmm for chest pain, palpitations, and edema, Respiratory: Negative for shortness of breath, cough, wheezing, and pleuritic chest pain. 11:36 Neuro: Positive for altered mental status. 11:36 All other systems are negative. Exam: 11:36 Constitutional: This is a well developed, well nourished patient who is awake, alert, jmm and in no acute distress. Head/Face: atraumatic. Eyes: EOMI, no conjunctival erythema appreciated ENT: Moist Mucus Membranes Neck: Trachea midline, Supple Chest/axilla: Normal chest wall appearance and motion. Cardiovascular: Regular rate and rhythm. No edema appreciated Respiratory: Normal respirations, no respiratory distress appreciated Abdomen/GI: Non distended Back: Normal ROM Skin: General appearance color normal MS/ Extremity: Moves all extremities, no obvious deformities appreciated, no edema noted to the lower extremities Neuro: Awake and alert Psych: Behavior is normal, Mood is normal, Patient is cooperative and pleasant Vital Signs: 11:41 BP 156 / 99; Pulse 98; Resp 16; Temp 98.4; Pulse Ox 99% on R/A; Pain 5/10; sg5 12:25 BP 144 / 90; Pulse 88; Resp 16; Pulse Ox 100% on R/A; Pain 4/10; sg5 13:25 BP 129 / 76; Pulse 80; Resp 16; Pulse Ox 99% on R/A; Pain 3/10; sg5 14:35 BP 131 / 82; Pulse 78; Resp 16; Pulse Ox 99% on R/A; Pain 3/10; sg5 15:50 BP 130 / 99; Pulse 75; Resp 16; Pulse Ox 98% on R/A; sg5 11:41 Pain Scale: Adult sg5 12:25 Pain Scale: Adult sg5 13:25 Pain Scale: Adult sg5 14:35 Pain Scale: Adult sg5 MDM: 11:36 Patient medically screened. [facility] 04/04 11:38 Order name: Acetaminophen [facility] 04/04 11:38 Order name: Basic Metabolic Panel [facility] 04/04 11:38 Order name: CBC with Diff; Complete Time: 15:26 [facility] 04/04 11:38 Order name: ETOH Level [facility] 04/04 11:38 Order name: Hepatic Function [facility] 04/04 11:38 Order name: PT-INR; Complete Time: 15:38 [facility] 04/04 11:38 Order name: Ptt, Activated; Complete Time: 15:38 [facility] 04/04 11:38 Order name: Salicylate [facility] 04/04 11:38 Order name: Urine Drug Screen; Complete Time: 12:43 [facility] 04/04 15:23 Order name: CBC Smear Scan; Complete Time: 15:26 [facility] 04/04 11:38 Order name: EKG; Complete Time: 11:39 [facility] 04/04 11:38 Order name: EKG - Nurse/Tech; Complete Time: 14:32 [facility] 04/04 11:38 Order name: IV Saline Lock; Complete Time: 11:56 [facility] 04/04 11:38 Order name: Labs collected and sent; Complete Time: 12:31 [facility] 04/04 11:38 Order name: Suicide Screening ([place]); Complete Time: 12:31 [facility] Administered Medications: 12:25 Drug: Ativan IVP 1 mg Route: IVP; Site: right antecubital; sg5 12:25 Drug: HYDROcodone-acetaminophen PO 5 mg-325 mg 1 tabs Route: PO; sg5 12:25 Drug: Ondansetron IVP 4 mg Route: IVP; Site: right antecubital; sg5 Disposition Summary: 04/04/23 15:45 Discharge Ordered Location: Home [facility] Condition: Stable jm Diagnosis - Altered mental status, unspecified jm Followup: [facility] - With: Private Physician - When: 2 - 3 days - Reason: Recheck today's complaints, Continuance of care, Re-evaluation by your physician Forms: - Medication Reconciliation Form [facility] - Thank You Letter [facility] - Antibiotic Education [facility] - Prescription Opioid Use [facility] Signatures: Dispatcher [employer] EDMS Sanford Rahman MD MD cha Mickail, Joel, PA PA [facility] Aide Salazar, RN RN sg5 Corrections: (The following items were deleted from the chart) 14:07 11:36 This is a 37 year old female with a history of dm, seizures that presents to the [facility] ED with ams while at a store. Patient states she has had similar episodes after seizures. Patient states she was recently hospitalized for a kidney infection. . [facility] 15:27 11:36 This is a 37 year old female with a history of dm, seizures that presents to the [facility] ED with ams while at a store. Patient states she has had similar episodes after seizures. Patient states she was recently hospitalized for a kidney infection. Patient is currently taking tramadol for pain. . [facility] 15:43 11:39 Head Brain Wo Cont+CT.RAD.BRZ ordered. EDMA EDMS
[2023-04-04 16:25] VITALS: TEMP 98.4
[2023-04-04 16:32] VITALS: BP 130/99; O2SAT 98
[2023-04-04 16:45] LABS: ALT/SGPT 19 U/L (13-56); AST/SGOT 15 U/L (15-37); Albumin 3.2 g/dL (3.4-5.0); Alkaline Phosphatase 76 U/L (45-117); BUN Blood Urea Nitrogen 17 mg/dL (7-18); Bicarbonate 30 mEq/L (21-32); Bilirubin Total 0.1 mg/dL (0.2-1.0); Glomerular Filtration Rate 119 ml/min (=/>90); Glucose Level 119 mg/dL (74-106); Potassium 4.2 mEq/L (3.5-5.1); Protein, Total 6.5 g/dL (6.4-8.2); Sodium Level 124 mEq/L (136-145)
[2023-04-04 16:51] LABS: Bilirubin Direct < 0.1 mg/dL (0-0.2); Bilirubin Indirect, Calculated ND mg/dL (0.2-0.8)
--- NOTE | 2023-04-05 11:23 | EKG ---
Test Date: 2023-04-04 Test Time: 13:58:49 Controls Designer: TESFAYE MEASUREMENT RESULTS: Intervals: Rate: 80 WY: 170 QRSD: 78 QT: 380 QTc: 438 Bruce: P: 58 WY: 170 QRS: 76 T: 50 INTERPRETIVE STATEMENTS: Normal sinus rhythm Normal ECG Compared to ECG 12/03/2012 06:47:44 ST (T wave) deviation no longer present Prolonged QT interval no longer present Electronically Signed On 04-05-23 11:20:16 CDT by Thien Adams
== END 2023-04-04 15:52 | disposition home or self-care (01) ==
LOC: ER 11:35
DX: R41.82 Altered mental status, unspecified (principal); E11.9 Type 2 diabetes mellitus without complications; Z88.0 Allergy status to penicillin
CPT/HCPCS: 85025; 80048; 36415; 85610; 80076; 85730; 80307; J2405; G0480 ×3; 93005